=== PATIENT | female | born 1985 | race Caucasian/White ===

== ENCOUNTER → 2021-08-04 12:58 | Outpatient (BNVA) | payer BC, MEDICAID, SELFPAY | PROVIDERS: PCP Family Medicine; Visit Provider Physician Assistant Surgical | DX: Z13.89 Encounter for screening for other disorder (principal) ==

== ENCOUNTER → 2021-08-10 08:18 | Outpatient (BNVA) | payer BC, MEDICAID, SELFPAY | PROVIDERS: PCP Family Medicine; Visit Provider Physician Assistant Surgical | DX: Z13.89 Encounter for screening for other disorder (principal) ==

== ENCOUNTER 2021-08-25 09:23 | Outpatient (REF) | payer BC, MEDICAID, SELFPAY ==
[2021-08-25 09:52] LABS: MANUAL DIFF FLAG NO
[2021-08-25 10:17] LABS: Basophils Percent Auto 0.7 % (0-2); Eosinophils Absolute Auto 0.1 X10*3/uL (0.0-0.4); Eosinophils Percent Auto 1.8 % (0-4); Hematocrit 39.6 % (37.0-47.0); Imm Gran Abs Auto 0.01 X10*3/uL (0.00-0.03); Imm Gran Pct Auto 0.2 % (0.0-0.4); Lymphocytes Absolute Auto 1.5 X10*3/uL (1.2-4.9); Mean Corpuscular HGB Conc 32.8 g/dl (31.0-35.0); Mean Corpuscular Hemoglobin 27.8 pg (27.0-33.0); Mean Corpuscular Volume 84.8 fL (80.0-98.0); Mean Platelet Volume 12.3 fL (9.4-12.3); Monocytes Absolute Auto 0.4 X10*3/uL (0.1-1.2); Neutrophils Absolute Auto 3.7 x10*3/uL (2.0-8.3); Neutrophils Percent Auto 64.3 % (45-73); Platelet Count 198 X10*3/uL (160-400); Red Blood Count 4.67 X10*6/uL (4.20-5.50); Red Cell Distribution Width 13.8 % (11.0-16.0); White Blood Count 5.7 X10*3/uL (4.8-10.8)
[2021-08-25 10:48] LABS: Alanine Aminotransferase 19 U/L (0-31); Albumin Level 4.3 g/dL (3.5-5.0); Alkaline Phosphatase 94 U/L (39-117); Anion Gap 13 (12-20); Aspartate Amino Transferase 24 U/L (5-31); Bilirubin Total 0.4 mg/dL (0.0-1.0); Blood Urea Nitrogen 11 mg/dL (9-16); Calcium 9.6 mg/dL (8.4-10.2); Carbon Dioxide 25 mmol/L (22-29); Chloride 106 mmol/L (96-108); Cholesterol 146 mg/dL; Estimated Glomerular Filt Rate > 60; Glucose Random 81 mg/dL (60-115); HDL Cholesterol 31 mg/dL; Iron 46 mcg/dL (30-160); LDL Cholesterol Calculated 99 mg/dl; Percent Iron Saturation 14 % (15-50); Potassium 4.1 mmol/L (3.3-5.1); Sodium 140 mmol/L (135-145); Total Iron Binding Capacity 335 mcg/dL (228-428); Triglycerides 82 mg/dL; Unsaturated Iron Binding 289 ug/dL
[2021-08-25 10:50] LABS: Estimated Average Glucose 91 mg/dL; Hemoglobin A1c % 4.8 %
[2021-08-25 11:12] LABS: Ferritin 50 ng/mL (10-122); Insulin 6 uU/mL (2-29); TSH reflex Free T4 1.45 uIU/mL (0.32-4.0); Vitamin D 25-OH Total 30.4 ng/mL (>30)
[2021-08-25 11:20] LABS: Folate 13.3 ng/mL (> or = 4.0); Vitamin B12 983 pg/mL (200-900)
[2021-08-27 14:46] LABS: Calcium (PTHI) 9.6 mg/dL (8.6-10.2); PTHI 32 pg/mL (16-77)
[2021-08-28 11:50] LABS: H Pylori Breath Test Negative (Negative)
[2021-08-31 04:41] LABS: Vitamin B1 6 nmol/L (8-30)
[2021-08-31 08:28] LABS: Zinc 68 mcg/dL (60-130)
[2021-08-31 12:22] LABS: Vitamin A 28 mcg/dL (38-98)
== END 2021-08-25 09:24 | disposition home or self-care (01) ==
LOC: HO.LAB 09:23
PROVIDERS: PCP Family Medicine; Visit Provider Physician Assistant Surgical
DX: E66.01 Morbid (severe) obesity due to excess calories (principal)
CPT/HCPCS: 36415; 80053; 80061; 82306; 82607; 82728; 82746; 83013; 83036; 83525; 83540; 83970; 84425; 84443; 84590; 84630; 85025; 86140

== ENCOUNTER → 2021-08-27 09:26 | Outpatient (REF) | payer BC, MEDICAID, SELFPAY ==
--- NOTE | ~2021-08-27 | XR_ITS ---
EXAMINATION: XR CHEST CLINICAL INFORMATION: Obesity COMPARISON: None TECHNIQUE: 2 views of the chest were obtained. FINDINGS: Cardiac silhouette is normal in size. The lungs are well aerated. There is no lobar consolidation. No pleural effusion or pneumothorax. No acute osseous abnormality. XR/XR chest 2V IMPRESSION: No acute pulmonary pathology.
--- NOTE | 2021-08-27 09:35 | ECG_ITS ---
Test Reason : e66.01 Blood Pressure : / mmHG Vent. Rate : 074 BPM Atrial Rate : 074 BPM P-R Int : 144 ms QRS Dur : 094 ms QT Int : 406 ms P-R-T Axes : 045 016 036 degrees QTc Int : 450 ms Normal sinus rhythm Normal ECG No previous ECGs available Referred By: Dileep Garcia Electronically Signed By:JADA ALVARADO MD
== END ==
LOC: HO.CARD 09:26
PROVIDERS: PCP Family Medicine; Visit Provider Physician Assistant Surgical
DX: Z01.818 Encounter for other preprocedural examination (principal); E66.01 Morbid (severe) obesity due to excess calories
CPT/HCPCS: 71046; 93005

== ENCOUNTER → 2021-08-31 08:15 | Outpatient (BNVA) | payer BC, MEDICAID, SELFPAY | PROVIDERS: PCP Family Medicine; Visit Provider Surgery | DX: E66.01 Morbid (severe) obesity due to excess calories (principal) ==

== ENCOUNTER → 2021-09-01 08:08 | Outpatient (BNVA) | payer BC, MEDICAID, SELFPAY | PROVIDERS: PCP Family Medicine; Visit Provider Dietitian, Registered | DX: E66.01 Morbid (severe) obesity due to excess calories (principal); Z68.41 Body mass index [BMI] 40.0-44.9, adult | CPT/HCPCS: 97802 ==

== ENCOUNTER → 2021-09-07 14:00 | Outpatient (BNVA) | payer BC, MEDICAID, SELFPAY | PROVIDERS: PCP Family Medicine; Visit Provider Counselor Mental Health | DX: F31.32 Bipolar disorder, current episode depressed, moderate (principal); E66.01 Morbid (severe) obesity due to excess calories | CPT/HCPCS: 90791 ==

== ENCOUNTER → 2021-09-18 12:56 | Outpatient (BNVA) | payer BC, MEDICAID, SELFPAY | PROVIDERS: PCP Family Medicine; Visit Provider Surgery | DX: Z13.89 Encounter for screening for other disorder (principal) ==

== ENCOUNTER 2021-09-21 08:43 | Outpatient (REF) | payer BC, MEDICAID, SELFPAY ==
--- NOTE | ~2021-09-21 | US_ITS ---
EXAMINATION: US COMPLETE ABDOMEN WITH LIVER ELASTOGRAPHY CLINICAL INFORMATION: Obesity COMPARISON: None. TECHNIQUE: Real-time imaging of the abdominal viscera. Noninvasive ultrasound liver fibrosis assessment is performed using Vijaya ElastPQ point quantification shear wave elastography (2D-SWE) with a C5-2 MHz transducer. Multiple elastography samples are obtained. FINDINGS: PANCREAS: The visualized pancreatic head and body are normal in appearance. The remainder of the pancreas is obscured from visualization by the overlying bowel gas. ABDOMINAL AORTA: The proximal, middle, and distal aortic segments are normal in caliber. INFERIOR VENA CAVA: Visualized portions are normal. LIVER: Liver echotexture is increased. There is a 2.9 cm hyperechoic lesion in the liver near the hepatic venous confluence. No intrahepatic biliary duct dilatation. The right lobe measures 16 cm in length. The left lobe measures 10 cm in length. Portal flow is normal/hepatopedal Shear wave liver elastography median stiffness is 1.3 m/s (reference: normal median stiffness is 1.3 m/s or less). IQR/median stiffness to assess sampling precision is 0.1 (reference: good quality data set is IQR/median stiffness of 0.15 or less). GALLBLADDER: Normal. The gallbladder is physiologically distended without evidence of stones, sludge, polyps, wall thickening or pericholecystic fluid. COMMON BILE DUCT: Normal in caliber measuring 0.4 cm in diameter. RIGHT KIDNEY: Normal. No hydronephrosis. No renal calculi or focal parenchymal lesions. The kidney measures 10.8 cm in maximum dimension. LEFT KIDNEY: Normal. No hydronephrosis. No renal calculi or focal parenchymal lesions. The kidney measures 11.5 cm in maximum dimension. SPLEEN: Normal. The spleen measures 11.4 cm in maximum dimension. FREE FLUID: None. US/US abdomen comp w elastography IMPRESSION: 1. Impression: Echogenic liver probably representing fatty infiltration. 2.9 cm echogenic lesion in the liver near the hepatic venous confluence. This may represent a hemangioma. This could be further characterized with liver MRI. Limited visualization of the tail of the pancreas. 2. Liver elastography: Adequate liver sampling. Normal liver stiffness. REFERENCE: Society of Radiologists in Ultrasound Liver Stiffness Thresholds (2020): LIVER STIFFNESS THRESHOLDS: *Liver Stiffness equal or less than 1.3 m/s: High probability of being normal. *Liver Stiffness less than 1.7 m/s: In the absence of other known clinical signs, rules out compensated advanced chronic liver disease. *Liver Stiffness 1.7-2.1 m/s: Suggestive of compensated advanced chronic liver disease but need further test for confirmation. *Liver Stiffness over 2.1 m/s: Rules in compensated advanced chronic liver disease. *Liver Stiffness over 2.4 m/s: Suggestive of clinically significant portal hypertension. QUALITY OF DATA SET: *IQR/Median value equal or less than 0.15 implies a quality data set. *IQR/Median value over 0.15 implies a poor quality data set. SIGNIFICANT CHANGE FROM PRIOR EXAM: Significant change if liver stiffness measurement is 10% or greater from prior exam. OTHER CONSIDERATIONS: The stage of liver fibrosis may be overestimated in the setting of acute hepatitis, liver inflammation, elevated liver function tests, hepatic vascular congestion, obstructive cholestasis, non-fasting state, and infiltrative diseases such as amyloidosis and lymphoma. In some patients with NAFLD, the liver stiffness thresholds for compensated advanced chronic liver disease may be lower. In causes other than viral hepatitis and NAFLD, liver stiffness thresholds are not well established.
--- NOTE | ~2021-09-21 | FL_ITS ---
EXAMINATION: XR FLUOROSCOPY UPPER GI WITH AIR CLINICAL INFORMATION: Morbid/severe obesity due to excess calories. COMPARISON: None TECHNIQUE: Routine upper GI air-contrast study was performed in upright and lying position. FINDINGS: Following oral administration of thick barium and effervescent granules, there is normal propagation of bolus from the oral cavity through the pharynx, esophagus into stomach without any evidence of obstruction, narrowing or stricture. On placing patient supine, the course, caliber and peristalsis of the stomach, duodenal bulb and the sweep is normal. The mucosal pattern of the stomach, duodenal bulb and sweep is normal. There is mild gastroesophageal reflux without hiatal hernia. FLUOROSCOPY TIME: 1.5 minutes. DOSE AREA PRODUCT: 40.830 uGy-m2 (microgray-meter squared). FL/FL upper GI w air IMPRESSION: Mild gastroesophageal reflux without hiatal hernia. The rest of the upper GI exam is unremarkable.
== END 2021-09-21 08:44 | disposition home or self-care (01) ==
LOC: HO.US 08:43
PROVIDERS: PCP Family Medicine; Visit Provider Surgery
DX: E66.01 Morbid (severe) obesity due to excess calories (principal)
CPT/HCPCS: 74246; 76705; 76981

== ENCOUNTER 2021-09-24 07:50 | Inpatient (IN) | payer BC, MEDICAID, SELFPAY ==
[2021-09-19 09:17] LABS: MANUAL DIFF FLAG NO
[2021-09-19 09:35] LABS: Basophils Percent Auto 0.3 % (0-2); Eosinophils Absolute Auto 0.2 X10*3/uL (0.0-0.4); Eosinophils Percent Auto 2.5 % (0-4); Hemoglobin 12.5 g/dl (12.0-16.0); Imm Gran Abs Auto 0.01 X10*3/uL (0.00-0.03); Imm Gran Pct Auto 0.2 % (0.0-0.4); Lymphocytes Absolute Auto 1.3 X10*3/uL (1.2-4.9); Lymphocytes Percent Auto 20.8 % (20-40); Mean Corpuscular HGB Conc 32.1 g/dl (31.0-35.0); Mean Corpuscular Hemoglobin 28.2 pg (27.0-33.0); Mean Corpuscular Volume 87.8 fL (80.0-98.0); Mean Platelet Volume 12.4 fL (9.4-12.3); Monocytes Absolute Auto 0.5 X10*3/uL (0.1-1.2); Monocytes Percent Auto 7.6 % (2-11); Neutrophils Absolute Auto 4.2 x10*3/uL (2.0-8.3); Neutrophils Percent Auto 68.6 % (45-73); Platelet Count 166 X10*3/uL (160-400); Red Blood Count 4.44 X10*6/uL (4.20-5.50); Red Cell Distribution Width 14.8 % (11.0-16.0); White Blood Count 6.1 X10*3/uL (4.8-10.8)
[2021-09-19 09:41] LABS: INTERNATIONAL NORM RATIO 1.1 (0.9-1.1); Prothrombin Time 12.1 SEC (9.9-13.0)
[2021-09-19 09:43] LABS: Partial Thromboplastin Time 36.5 SEC (24.1-38.0)
[2021-09-19 09:52] LABS: Estimated Average Glucose 88 mg/dL; Hemoglobin A1c % 4.7 %
[2021-09-19 10:28] LABS: Alanine Aminotransferase 48 U/L (0-31); Albumin Level 4.2 g/dL (3.5-5.0); Alkaline Phosphatase 122 U/L (39-117); Anion Gap 16 (12-20); Aspartate Amino Transferase 25 U/L (5-31); Bilirubin Total 0.8 mg/dL (0.0-1.0); Blood Urea Nitrogen 6 mg/dL (9-16); C Reactive Protein 0.59 mg/dL (< or = 0.50); Calcium 9.5 mg/dL (8.4-10.2); Carbon Dioxide 19 mmol/L (22-29); Chloride 110 mmol/L (96-108); Cholesterol 152 mg/dL; Estimated Glomerular Filt Rate > 60; Glucose Random 83 mg/dL (60-115); HDL Cholesterol 35 mg/dL; LDL Cholesterol Calculated 103 mg/dl; Potassium 4.1 mmol/L (3.3-5.1); Sodium 141 mmol/L (135-145); Total Protein 6.9 g/dL (6.5-8.0); Triglycerides 72 mg/dL
[2021-09-19 10:53] LABS: TSH reflex Free T4 2.31 uIU/mL (0.32-4.0)
[2021-09-19 11:13] LABS: Insulin 9 uU/mL (2-29)
--- NOTE | 2021-09-19 13:52 | MHC.SHP ---
Pre-Procedural Eval Section A Date of Service: 09/19/21 The patient is an INPATIENT: Yes The History & Physical has been completed within 30 days and I have reviewed it.: Yes Section B Chief Complaint: obesity Relevant Family History (Specify if Yes): No Relevant Social History: None Present Medications: None Medical History: No relevant PMH History of Previous Operations: No relevant previous surgery Allergies: Allergies Allergy/AdvReac Type Severity Reaction Status Date / Time latex [LATEX] Allergy Unknown UNKNOWN Verified 09/18/21 16:54 sulfamethoxazole Allergy Unknown UNKNOWN Verified 09/18/21 16:54 [From BACTRIM] trazodone [TRAZODONE] Allergy Unknown UNKNOWN Verified 09/18/21 16:54 trimethoprim [From BACTRIM] Allergy Unknown UNKNOWN Verified 09/18/21 16:54 CHOCOLATE Allergy Unknown UNKNOWN Uncoded 09/18/21 16:54 From FLONASE Allergy Unknown UNKNOWN Uncoded 09/18/21 16:54 Review of Systems Sugical H&P ROS: Negative: Constitution, Cardiovascular, Respiratory, Neurological, Psychiatric, Hem-Onc, Allergic/Immunologic, Gastrointestinal, Genitourinary, Musculoskeletal, Integumentary, Endocrine and Eyes/Ears/Nose/Throat Exam Surgical H&P Exam: Normal: HEENT, Normal: Heart, Normal: Lungs, Normal: Extremities, Normal: Abdomen, Normal: Skin and Normal: Neurological Plan Diagnosis/Plan: Unchanged I have reviewed the history and physical and performed a pertinent physical examination on my patient. No changes have occurred unless specified.
[2021-09-21 10:45] VITALS: BMI 42.1
--- NOTE | 2021-09-23 08:45 | P.CONAN_ITS ---
Documented by User: Sandrine Bonilla NP 09/23/21 08:46 HPI - Anesthesia Eval Consult details Narrative: 36yo F for Gastrectomy Sleeve,EGD,Possible diaphragmatic hernia,possible ventral hernia,possible open PMFSH Active Problems Active Problems: All Active Problems (Updated 09/21/21 @ 10:42 by Sarah Amezcua RN) Morbid obesity (Acute) Depression (Acute) Asthma (Acute) Bipolar disorder (Acute) Vitamin B1 deficiency (Acute) Bipolar 1 disorder, depressed, moderate (Acute) Migraines (Acute) Past Medical History Medical History (Updated 09/24/21 @ 10:26 by Jose Kaufman MD) Asthma Bipolar depression Depression GERD (gastroesophageal reflux disease) Hemangioma Insomnia Migraines Obesity Steatosis, liver Family History Family History Mother Mental health disorder Arthritis Thyroid condition Father Arthritis Autism Hypertension Brother No problems noted. Sister No problems noted. Son No problems noted. Daughter Autism ADHD Surgical History Surgical History (Updated 09/24/21 @ 14:36 by GABRIEL Bullard) H/O laparoscopy History of myringotomy Hx of dilation and curettage Social History Social History Are you a primary rn progressive care unit to a significant other at home: No Do you presently have visiting nurse or other home services: No Alcohol intake: current Alcohol intake frequency: holidays/special occasions on ly Patient Tobacco Use Status: Never used Tobacco Use of substances other than those prescribed or required for medical reasons: No Have you been hit, kicked, punched, or otherwise hurt by someone within the past year? If so, by whom?: No Are you DNR?: No Advance Directives: No Advance Directives Information Provided: Yes (Info given to patient) Advance Directives on File: No Recently lost weight without trying: No How much weight loss: 24-33 pounds Eating poorly because of decreased appetite: No Nutrition screen score: 3 Nutrition Risks: No Nutritional Risk Patient : No FDLMP: due 09/24/21 Meds Allergies Allergy/AdvReac Type Severity Reaction Status Date / Time latex [LATEX] Allergy Unknown Swelling Verified 09/21/21 10:44 sulfamethoxazole Allergy Unknown Rash Verified 09/21/21 10:44 [From BACTRIM] trazodone [TRAZODONE] Allergy Unknown Insomnia Verified 09/21/21 10:44 trimethoprim [From BACTRIM] Allergy Unknown Rash Verified 09/21/21 10:44 CHOCOLATE Allergy Unknown Migraine Uncoded 09/21/21 10:44 From FLONASE Allergy Unknown Migraine Uncoded 09/21/21 10:44 Home Medications Medication Instructions Recorded Confirmed Last Taken Type erenumab-aooe 140 mg/mL mg subcut 08/04/21 09/18/21 08/17/21 History subcutaneous auto-injector (Aimovig Autoinjector) lorazepam 1 mg tablet 1 mg PO BEDTIME 08/04/21 09/24/21 Unknown History lurasidone 40 mg tablet (Latuda) 40 mg PO DAILY 08/04/21 09/18/21 Unknown History melatonin 10 mg tablet 10 mg PO BEDTIME PRN Sleep 08/04/21 09/18/21 Unknown History Hair, skin ,nail MVI 2 units PO DAILY 08/10/21 09/18/21 09/19/21 History gabapentin 600 mg tablet 900 mg PO QPM 08/10/21 09/21/21 09/19/21 History lithium carbonate 450 mg 900 mg PO BEDTIME 08/10/21 09/18/21 Unknown History tablet,extended release hydroxyzine HCl 25 mg tablet 25 mg PO BEDTIME 08/31/21 09/18/21 Unknown History albuterol sulfate 90 mcg/actuation 2 puff inhalation Q4-6H PRN 09/21/21 09/21/21 Unknown History aerosol inhaler (ProAir HFA) Wheezing Exam Exam Date and Time: September 23, 2021 0845 Height,Weight and Vital Signs: Height 5 ft 5.5 in Weight 116.573 kg Pertinent Lab Results Pertinent Lab Results: Laboratory Tests 09/19/21 09/19/21 09/19/21 09:00 09:17 09:17 WBC 6.1 RBC 4.44 Hgb 12.5 Hct 39.0 MCV 87.8 MCH 28.2 MCHC 32.1 RDW 14.8 Plt Count 166 MPV 12.4 H Immature Gran % (Auto) 0.2 Neut % (Auto) 68.6 Lymph % (Auto) 20.8 [place] % (Auto) 7.6 Eos % (Auto) 2.5 Baso % (Auto) 0.3 Lymph # (Auto) 1.3 [place] # (Auto) 0.5 Eos # (Auto) 0.2 Baso # (Auto) 0.0 Abs Immat Gran (auto) 0.01 Absolute Neuts (auto) 4.2 Absolute Nucleated RBC 0.000 Nucleated RBC % (auto) 0.0 PT 12.1 INR 1.1 APTT 36.5 Sodium Potassium Chloride Carbon Dioxide Anion Gap BUN Creatinine Estim Creat Clear Calc Estimated GFR Random Glucose Estimat Average Glucose Hemoglobin A1c % Insulin Level Calcium Total Bilirubin AST ALT Alkaline Phosphatase C-Reactive Protein Total Protein Albumin Triglycerides Cholesterol LDL Cholesterol, Calc HDL Cholesterol TSH Blood Type O Positive Antibody Screen NEGATIVE 09/19/21 09/19/21 09:17 09:17 WBC RBC Hgb Hct MCV MCH MCHC RDW Plt Count MPV Immature Gran % (Auto) Neut % (Auto) Lymph % (Auto) [place] % (Auto) Eos % (Auto) Baso % (Auto) Lymph # (Auto) [place] # (Auto) Eos # (Auto) Baso # (Auto) Abs Immat Gran (auto) Absolute Neuts (auto) Absolute Nucleated RBC Nucleated RBC % (auto) PT INR APTT Sodium 141 Potassium 4.1 Chloride 110 H Carbon Dioxide 19 L Anion Gap 16 BUN 6 L Creatinine 0.80 Estim Creat Clear Calc TNP Estimated GFR > 60 Random Glucose 83 Estimat Average Glucose 88 Hemoglobin A1c % 4.7 Insulin Level 9 Calcium 9.5 Total Bilirubin 0.8 AST 25 ALT 48 H Alkaline Phosphatase 122 H D C-Reactive Protein 0.59 H Total Protein 6.9 Albumin 4.2 Triglycerides 72 Cholesterol 152 LDL Cholesterol, Calc 103 HDL Cholesterol 35 TSH 2.31 Blood Type Antibody Screen Narrative Narrative: EKG 08/2021 Vent. Rate : 074 BPM ? ? Atrial Rate : 074 BPM ?? P-R Int : 144 ms? QRS Dur : 094 ms ? ? QT Int : 406 ms ? ? ? P-R-T Axes : 045 016 036 degrees ?? QTc Int : 450 ms ? Normal sinus rhythm Normal ECG No previous ECGs available Assessment and Plan Assessment Anesthesia Assessment: Chart Reviewed Documented by User: Sarthak Diaz MD 09/24/21 16:33 PMFSH Past Medical History Medical History (Updated 09/24/21 @ 10:26 by Jose Kaufman MD) Asthma Bipolar depression Depression GERD (gastroesophageal reflux disease) Hemangioma Insomnia Migraines Obesity Steatosis, liver Functional capacity: independent ambulation Family History Family History Mother Mental health disorder Arthritis Thyroid condition Father Arthritis Autism Hypertension Brother No problems noted. Sister No problems noted. Son No problems noted. Daughter Autism ADHD Family history of problems with anesthesia: Yes (possible PONV and delayed emergence in grandfathjer but patient unsure ) Surgical History Surgical History (Updated 09/24/21 @ 14:36 by GABRIEL Bullard) H/O laparoscopy History of myringotomy Hx of dilation and curettage History of Problems with Anesthesia: No Social History Social History Are you a primary rn progressive care unit to a significant other at home: No Do you presently have visiting nurse or other home services: No Alcohol intake: current Alcohol intake frequency: holidays/special occasions only Patient Tobacco Use Status: Never used Tobacco Use of substances other than those prescribed or required for medical reasons: No Have you been hit, kicked, punched, or otherwise hurt by someone within the past year? If so, by whom?: No Are you DNR?: No Advance Directives: No Advance Directives Information Provided: Yes (Info given to patient) Advance Directives on File: No Recently lost weight without trying: No How much weight loss: 24-33 pounds Eating poorly because of decreased appetite: No Nutrition screen score: 3 Nutrition Risks: No Nutritional Risk Patient : No FDLMP: due 09/24/21 Meds Allergies Allergy/AdvReac Type Severity Reaction Status Date / Time latex [LATEX] Allergy Unknown Swelling Verified 09/21/21 10:44 sulfamethoxazole Allergy Unknown Rash Verified 09/21/21 10:44 [From BACTRIM] trazodone [TRAZODONE] Allergy Unknown Insomnia Verified 09/21/21 10:44 trimethoprim [From BACTRIM] Allergy Unknown Rash Verified 09/21/21 10:44 CHOCOLATE Allergy Unknown Migraine Uncoded 09/21/21 10:44 From FLONASE Allergy Unknown Migraine Uncoded 09/21/21 10:44 Home Medications Medication Instructions Recorded Confirmed Last Taken Type erenumab-aooe 140 mg/mL mg subcut 08/04/21 09/18/21 08/17/21 History subcutaneous auto-injector (Aimovig Autoinjector) lorazepam 1 mg tablet 1 mg PO BEDTIME 08/04/21 09/24/21 Unknown History lurasidone 40 mg tablet (Latuda) 40 mg PO DAILY 08/04/21 09/18/21 Unknown History melatonin 10 mg tablet 10 mg PO BEDTIME PRN Sleep 08/04/21 09/18/21 Unknown History Hair, skin ,nail MVI 2 units PO DAILY 08/10/21 09/18/21 09/19/21 History gabapentin 600 mg tablet 900 mg PO QPM 08/10/21 09/21/21 09/19/21 History lithium carbonate 450 mg 900 mg PO BEDTIME 08/10/21 09/18/21 Unknown History tablet,extended release hydroxyzine HCl 25 mg tablet 25 mg PO BEDTIME 08/31/21 09/18/21 Unknown History albuterol sulfate 90 mcg/actuation 2 puff inhalation Q4-6H PRN 09/21/21 09/21/21 Unknown History aerosol inhaler (ProAir HFA) Wheezing Exam Airway Mallampati Class: III TM Dist: >3cm Neck ROM: Full Loose/Missing/Broken Teeth: Yes (Chipped teeth , crown ) Heart: S1,S2 Lungs: b/l breath sounds Assessment and Plan Assessment Anesthesia Assessment: Anesthesia Plan Discussed Final Anesthetic Review Family History of Problems with Anesthesia: Yes (possible PONV and delayed emergence in grandfathjer but patient unsure ) History of Problems with Anesthesia: No NPO: Yes ASA Class: III Final Preanesthetic Review: Meds/Allgs Chart Reviewed, Consent Obtained/Reviewed and Anes Risks/Benef Reviewed Patient Risk: Intermediate Procedure Risk: Intermediate Anesthetic Plan Anesthetic Plan: GA Disposition: Standard PACU
[2021-09-23 13:23] LABS: COVID-19 Test Negative (Negative); IDNOW Serial# 16C4AD1C
[2021-09-24] VITALS (14 sets, daily range): BP systolic 116–157; BP diastolic 63–92; PULSE 66–93; RESP 14–20; TEMP 36.2–36.7; O2SAT 96–99
[2021-09-24 08:22] LABS: UPreg QC Valid YES; Urine Pregnancy NEGATIVE (NEGATIVE)
[2021-09-24] MEDS: Lactated Ringers 1,000 ML 999 ML IV (08:37)
--- NOTE | 2021-09-24 10:24 | PM.PNGS ---
Subjective Subjective Date of Service: 09/25/21 Interval history: Patient has mild incisional pain, but was able to ambulate and use the incentive spirometer. She is tolerating phase 1 bariatric diet Physical Exam Vital Signs: Vital Signs: Last Vital Signs Temp 97.3 F 09/24/21 08:19 Pulse 88 09/24/21 08:19 Resp 17 09/24/21 08:19 BP 150/85 H 09/24/21 08:19 Pulse Ox 98 09/24/21 08:19 O2 Del Method 09/24/21 08:19 BMI result Body Mass Index 42.1 GI: Inspection: Yes normal to inspection, Yes incision (clean, dry and intact) and Yes obesity Extrem: Right lower extremity: normal to inspection (no calf tenderness) Left lower extremity: normal to inspection (no calf tenderness) Objective Data Active Medications Albuterol Sulfate (Albuterol Sulfate (0.083%) 2.5 Mg/3 Ml Vial.Neb) 2.5 mg INHALE ONCE PRN PRN Reason: Shortness of Breath/Wheezing Lactated Ringer's (Lr) 1,000 mls @ 100 mls/hr IVCONT .Q10H JAZMIN Labs CBC & Chem 7: 09/25/21 05:29 09/25/21 05:29 Labs: Laboratory Results - last 24 hr 09/23/21 09/24/21 13:00 08:00 Urine Test NEGATIVE COVID-19 (SHAD) Negative COVID-19 Clin Com See Note Procedures Date of Service Date of Service: 09/25/21 Progress Note: A&P Assessment and plan (1) Morbid obesity: Status: Acute Assessment and Plan: s/p laparoscopic sleeve gastrectomy, lysis of adhesions repair of diaphragmatic hernia, and gastropexy Doing well Check am labs. If OK, will discharge home? (2) Depression: Status: Acute (3) Asthma: Status: Acute (4) Bipolar disorder: Status: Acute (5) Migraines: Status: Acute (6) GERD (gastroesophageal reflux disease): Status: Acute (7) Steatosis, liver: Status: Acute (8) Hemangioma: Status: Acute (9) Insomnia: Status: Acute (10) History of repair of hiatal hernia: Status: Acute Time Spent With Patient Time: Total time spent is greater than 50% in coordination of care (as documented) at patient's floor/unit and/or counseling patient: Quality Stroke Does the patient have a stroke diagnosis?: No VTE Prior VTE?: No VTE Risk Level:: Surgical - moderate VTE Device Contraindication: N/A - Device Ordered VTE Drug Contraindication: Treatment Not Indicated
--- NOTE | 2021-09-24 10:27 | PM.OP ---
Brief Operative Note Date of Service: 09/24/21 Pre-op diagnosis: Morbid obesity with comorbidities (see below) Post-op diagnosis: same Procedure: INITIAL PATIENT BMI ON PRESENTATION AT OUR OFFICE: 47 kg/m2 LAST BMI BEFORE SURGERY: 42.6 kg/m2 COMORBIDITIES: asthma, insomnia, anxiety, bipolar disorder, GERD, liver steatosis, hemangioma of liver ?The patient presented to the Weight Management Program with significant obesity that was negatively impacting the patient's comorbidities as listed above.? The program is a phased program with a special focus on preoperative medical weight management to promote substantial weight loss and prepare the patients for the second phase of the program: bariatric surgery. The patient participated in an intensive weekly lifestyle ?intervention and exercise program during which the patient ?has lost between the initial office visit and the last preoperative visit 26.4 lbs, or 9.34% of initial actual body weight. It was deemed appropriate for the patient to now have bariatric surgery. In light of the current Covid-19 pandemic and the well documented strong association of obesity and increased risk of worse outcomes if infected with Covid-19 (REFERENCES:https://pubmed.ncbi.nlm.nih.gov/79901166/,?https://pubmed.ncbi.nlm.nih.gov/78885877/), any delay in undergoing bariatric surgery may lead to the patient's worsening health condition and increased?risk of more severe Covid-19 disease if infected. In addition a recent?study from [facility] published in [facility] on 04/13/2021 ([email or web address]) found that, among patients with obesity, substantial weight loss achieved with surgery was associated with improved outcomes of COVID-19 infection. The findings suggest that obesity can be a modifiable risk factor for the severity of COVID-19 infection. In addition, the patient met the BMI-criteria for bariatric surgery based on the BMI on initial presentation. The patient should not be penalized for achieving such weight loss because ?it is not sustainable long-term without surgical intervention and it was achieved in preparation for bariatric surgery ?under my direction and based on my published research ([email or web address]).[email or web address] and?https://www.soard.org/article/[email or web address])13630-X/pdf) ?that a 10% preoperative weight loss improves long-term weight loss after surgery and reduces perioperative complications.? Insurance carriers such as [facility] have endorsed my recommendations ?and have included in their policies criteria to include a 10% preoperative weight loss requirement. PROCEDURE: Esophago-gastroscopy, laparoscopic repair of incarcerated diaphragmatic hernia, laparoscopic sleeve gastrectomy and laparoscopic gastropexy INDICATIONS: This is a 36 year-old female who was electively scheduled for laparoscopic, possibly open sleeve gastrectomy. The risks and complications of the procedure were discussed with the patient in advance, particularly the possibility of ; pulmonary embolism; staple line leak; bleeding; GERD; cardiac, pulmonary, or renal complications; as well as long-term problems such as insufficient weight loss, vitamin deficiency, strictures, or ulcers. The patient understood all the risks, and was in agreement to proceed with surgery. DESCRIPTION OF PROCEDURE: After informed consent was obtained from the patient, the patient was given preoperative antibiotics, and was transferred to the operating room. After successful induction of general anesthesia, pneumatic compression devices were placed on both lower extremities. An upper endoscopy was performed next. The oropharynx and esophagus appeared to be within normal limits. There was a diaphragmatic hernia present of moderate size which was not reported at the preoperative upper GI. The stomach was entered. Then after all fluid and air were suctioned and the stomach was fully decompressed, the scope was withdrawn and secured in the mid esophagus. The patient was then prepped and draped in the usual sterile manner, and abdominal access was established at the right upper quadrant with the Aureliano technique. A 12 mm blunt port was inserted, and the abdomen was insufflated with CO2 to a pressure of 15 mmHg. Under direct visualization, additional ports were placed, specifically two 5 mm Versi-step ports to the left upper quadrant, and a 5 mm Versi-Step port to the right upper quadrant. 1% lidocaine plain was used to infiltrate all port sites as well as all fascia defects. Following that, the patient was placed in a steep reverse Trendelenburg position. An additional 5 mm port was placed to the right flank for the Mediflex retractor that was used to retract the left lobe of the liver. The gastro-esophageal fat pad was opened with the ultrasonic device (Thunderbeat, Olympus) and the anterior esophagus and hiatus were exposed. The angle of His was opened with the ultrasonic device the fundus of the stomach from any diaphragmatic and splenic attachments. I then opened the gastrocolic ligament between the transverse colon and the greater curvature of the stomach with the ultrasonic device to enter the lesser sac and facilitate the ligation of the short gastric vessels. I started at a mid-point along the greater curvature and using the Thunderbeat, all short gastric vessels were divided all the way to the angle of His until the left rose was completely dissected at its entirety. I then divided the gastro-colic ligament distally to a distance of about 3-4 cm proximal to the pylorus. There was an obvious significant-sized hiatal hernia. I continued dissecting along the hiatus toward the left rose and the angle of His. I fully mobilized the fat pad that was incarcerated in the hernia. I then continued by dissecting even further into the posterior retro-esophageal space all the way to the angle of His. I continued to mobilize the esophagus into the mediastinum circumferentially. Both vagal nerves were seen and preserved. At that point, I was able to have at least 3 to 5 cm of esophagus into the abdomen.? After I completely mobilized the esophagus from both the left and right rose and I had a good mobilization of the esophagus circumferentially, I closed the hernia defect with two interrupted #0 Surgidac sutures using the Endo Stitch device, one of which was placed posterior and one of which anterior to the esophagus. ? The stomach was then divided transversely with one Endo ABE-45 purple and four ABE-60 articulating orange loads using the AEON stapler and loads. Every effort was made that the gastric sleeve had a tubular shape and an even caliber throughout. Once the sleeve resection was completed, the staple line of the gastric sleeve was reinforced with Hemoclips. The resected stomach was retrieved without difficulty from the Aureliano port. A gastropexy was then performed in order to prevent postoperative GERD and partial gastric volvulus. Several interrupted 2.0 Surgidac sutures were placed between the sleeve's staple line and the previously divided greater omentum and gastro-colic ligament using the Endo-Stitch device. ?An upper endoscopy was performed. There was no narrowing at the GE junction. The scope was easily advanced all the way to the pylorus which was clearly visualized. There was no narrowing anywhere and the sleeve's caliber was even throughout. The sleeve's staple line was inspected and there was no evidence of ischemia, bleeding or dehiscence. At that point the gastroscope was withdrawn from the patient?s mouth while we were decompressing the bowel and the stomach from any remaining air. I looked into the lesser sac to see how the sleeve was situating and it was situating well. There was no bleeding from the staple line, spleen, or short gastric vessels. The Mediflex retractor was removed, and the undersurface of the liver was inspected and there was no bleeding. The patient was placed in supine position. I closed the fascial defect of the 12 mm port site with a figure of eight #1 Polysorb suture. Then 50 cc 0.25 % Marcaine plain with 10 mg of Dexamethasone were used to infiltrate the fascial closure as well as all skin incisions. A total of 7ml of Zynrelef was placed in the Aureliano wound. At this point, the abdomen was deflated, all ports were removed under direct vision, and no bleeding was noted from any of the port sites. The skin incisions were irrigated with saline and were closed with 4-0 absorbable monofilament sutures. Steri-Strips and OpSites were used to cover all incisions. The patient was extubated and was transferred in stable condition to the recovery room for further care. I was present and performed all obrien parts of the procedure. Radha was the construction management assistant. There were no residents to assist with this case. Rachid Kaufman MD, PhD, FACS Surgeon: Jose Kaufman MD Anesthesia: GETA, local and other (TAP block) Was an Therapeutic Recreation Leader used for this Procedure?: No Therapeutic Recreation Leader: Dileep Garcia Estimated blood loss (mL): 10 IV fluids (mL): 3,000 Urine output (mL): 0 (No Perkins to record) Pathology: other (Stomach) Condition: stable Disposition: PACU
--- NOTE | 2021-09-24 14:40 | P.DS_ITS ---
DS: Providers Provider Date of Service: 09/25/21 Date of admission: 09/24/21 07:50 Primary care physician: Marjorie Bower MD DS: Diagnosis Discharge Diagnosis (1) Morbid obesity: Status: Acute (2) Depression: Status: Acute (3) Asthma: Status: Acute (4) Bipolar disorder: Status: Acute (5) Migraines: Status: Acute (6) GERD (gastroesophageal reflux disease): Status: Acute (7) Steatosis, liver: Status: Acute (8) Hemangioma: Status: Acute (9) Insomnia: Status: Acute DS: Summary Hospital Course Hospital Course: ADMITTING DIAGNOSIS: morbid obesity, asthma, depression, bipolar, migraine ? DISCHARGE DIAGNOSIS: same, s/p laparoscopic sleeve gastrectomy and repair diaphragmatic hernia ? PAST SURGICAL HISTORY: exploratory laparoscopy ? PROCEDURE: upper endoscopy, laparoscopic sleeve gastrectomy and repair of diaphragmatic hernia hernia ? DISCHARGE SUMMARY: ? History of Present Illness: ? The patient is a?36 year-old woman with a BMI of?47 kg/m2 and associated co- morbidities as described above. The patient had extensive work-up,lost?26.4 lbs preoperatively and was electively scheduled for laparoscopic, possible open sleeve gastrectomy and gastropexy. Risks and complications of the surgery were discussed with the patient in advance, particularly the possibility of , pulmonary embolism, anastomotic leak, bleeding, bowel injury, GERD, cardiac, renal or pulmonary complications. The patient understood all the risks and was in agreement with the surgical plan. ? Hospital Course: ? The patient underwent an uneventful laparoscopic sleeve gastrectomy with gastropexy and repair of diaphragmatic hernia on the day of admission. Postoperatively, the patient was transferred to the surgical floor. The patient received IV Acetaminophen and IV dilaudid for pain control. Patient was started on bariatric phase 1 diet POD #0. On postoperative day one, the patient was feeling well without nausea, vomiting, fevers, or tachycardia. The patient had some mild incisional pain and the abdomen was soft. ? On the morning of postoperative day one, the patient was continued on 1 ounce of water or ice every half hour. During the day, the patient did fairly well, having some incisional pain, but able to ambulate adequately and to tolerate liquids well. ? Since the patient is doing well, we decided that the patient was ready to be discharged. The patient was given instructions to follow-up with me next week and to call my office for any fever over 101, persistent abdominal pain, nausea, vomiting, GERD, symptoms of DVT such as calf tenderness, or leg swelling, or pulmonary embolism such as chest pain or shortness of breath. The patient was also instructed to drink 40-60 ounces of liquids per day using the 1-ounce cups. The patient had been given prescriptions for Tylenol for pain, Zofran prn for nausea, and pantoprazole and carafate previously. The patient was encouraged to ambulate and use the incentive spirometer. The patient was allowed to shower, but no baths, and encouraged to stay active at home. All of these instructions were given to the patient personally. All questions were answered and the patient understood all instructions, the instructions were also given to the patient in print. Time Spent with Patient Time attestation: Total time spent providing and/or coordinating discharge services: Discharge coordination time: Less than 30 minutes Quality: Safe Use of Opioids Does Pt have an Active Cancer Diagnosis on the Problem List?: No Quality: Stroke Does the patient have a stroke diagnosis?: No Physical Exam Vital Signs: Vital Signs: Last Vital Signs Temp 97.3 F 09/24/21 08:19 Pulse 88 09/24/21 08:19 Resp 17 09/24/21 08:19 BP 150/85 H 09/24/21 08:19 Pulse Ox 98 09/24/21 08:19 O2 Del Method 09/24/21 08:19 BMI result Body Mass Index 42.1 DS: Data Data Completed and Pending Pending studies at discharge: Pending at discharge 09/24/21 13:09 Surgical [PTH] Routine Labs on day of discharge: Laboratory Results - last 24 hr 09/24/21 08:00 Urine Test NEGATIVE Discharge Plan Discharge Patient Disposition: Home, Self-Care Discharge Diagnosis: s/p laparoscopic sleeve gastrectomy and repair of hiatal hernia Referrals: Marjorie Bower MD [Primary Care Provider] - 1 Week Discharge Medications: Continued albuterol sulfate [ProAir HFA] 90 mcg/actuation Hfa Aerosol Inhaler 2 puff INHALATION Q4-6H PRN (Reason: Wheezing) lorazepam 1 mg tablet 1 mg PO BEDTIME melatonin 10 mg tablet 10 mg PO BEDTIME PRN (Reason: Sleep) Aimovig Autoinjector 140 mg/mL auto-injector subcut Latuda 40 mg tablet 40 mg PO DAILY lithium carbonate 450 mg tablet extended release 900 mg PO BEDTIME hydroxyzine HCl 25 mg tablet 25 mg PO BEDTIME pantoprazole 40 mg tablet,delayed release (DR/EC) 40 mg PO DAILY Qty: 30 2RF sucralfate 100 mg/mL suspension 10 ml PO BID Qty: 400 2RF ondansetron HCl 4 mg tablet 4 mg PO Q12H Qty: 20 0RF Held gabapentin 600 mg tablet 900 mg PO QPM Hold Instructions: until discssed with Dr Kaufman Discontinued vitamin A 10,000 unit capsule 10,000 unit PO DAILY Qty: 30 2RF Hair, skin ,nail MVI 2 units PO DAILY thiamine HCl (vitamin B1) 100 mg tablet 100 mg PO DAILY Qty: 30 2RF Diet: other Activity on Discharge: No heavy lifting Stand Alone Forms: Patient Portal Discharge page Care Plan Goals: weight loss Health Concerns: morbid obesity Plan of Treatment: No tub baths, sex or returning to work until discussed at first post op appointment. No exercise, alcohol, tobacco or illegal drug use. Continue to use incentive spirometer hourly while awake. Walk in home for 5- 10 minutes every 2 hours during the first week. Follow all instructions in the bariatric handbook and call with any questions.Discharge Instructions 1. Please call your doctor or come back to the emergency room should any new symptoms arise. 2. You will receive a courtesy call from [facility] 24-48 hours after discharge. 3. Activity: abstain from alcohol, practice limited stair climbing, no bending, no driving, no exercise, no illicit substances, no lifting, no sex, no tub bath, no work. 4. Diet: continue as discussed with Dr. Kaufman. 5. Dressing Change/Wound Care: Your incision is covered by clear bandages and guaze underneath. If the area is tender, you may apply an ice pack for short intervals (no more than 20 minutes on, followed by at least 20 minutes off). Do not apply heat. Do not use creams, lotions, or topical antibiotics unless instructed to do so by your surgeon. These can cause infection or allergic reaction. 6. Call your doctor if: - Your temperature exceeds 101.5 F - You experience excessive pain or swelling - You have an unexpected reaction to medication - You have excessive bleeding - You experience continued vomiting/nausea - Your incision begins to separate - Your incision shows signs of infection such as increased redness, swelling, excessive pain, heat, or drainage (light blood or clear fluid is normal) 7. General instructions: No lifting greater than 5 lbs for the next 4 weeks[address] driving within 24 hours of taking narcotic pain medications. If you do not move your bowels in the next 2 days, please take milk of magnesia over the counter. Please follow the post op diet and do not advance your diet until you are seen in the office in about 2 weeks. Please walk around your home every hour or two to prevent blood clots from forming in your legs. You do not need to wake from sleeping to walk. Please sleep in a bed or couch to prevent kinking at the hips and knees. Please take your incentive spirometer (your lung revenue cycle consultant) home with you and use it for the next few days to prevent pneumonias. You may shower, no hot tubs, baths or swimming pools. Please call the office with any questions or concerns such as increasing abdominal pain, fever, chills, shortness of breath, chest pain, leg pain or swelling, or redness or drainage from your incisions. Please stay on stage 3 diet which includes sugar free clear liquids such as ice pops and jello and broth and crystal light. Avoid all carbonation. Please drink 3 protein shakes with at least 25-30 grams of protein daily or 3 of the Celebrate 4:1 shakes which can be purchased in our office. The Celebrate shakes have all of the bariatric vitamins you need if you consume these shakes. If you are drinking other protein shakes, you will need to purchase the Celebrate multivitamins and calcium that we provide in the office (they will provide all the vitamins you need). Please make sure you are consuming at least 40-60 ounces of water in addition to your 3 protein shakes daily. Do not hesitate to contact the office with any questions at . The patient's medical history has been reviewed and they are considered low risk for post op DVT and therefore DVT prophylaxis is not considered necessary. Travel after surgery was reviewed. The patient has not disclosed any travel plans during the first 30 days after surgery and they have been advised that within the first 30 days after surgery any bus, plane, train or car travel over 2 hours in duration is contraindicated due to the possibility of developing blood clots from immobility. Any travel, needs to include periods of ambulation of 10 minutes in duration every 2 hours.? The patient was instructed to discuss any plans for travel during this period with their bariatric surgeon. Assessment: stable s/p laparoscopic sleeve gastrectomy and repair of hiatal hernia
[2021-09-24] MEDS: Famotidine/PF 20 MG/2 ML VIAL IVPUSH ×2 (15:00→20:44)
[2021-09-24 15:04] LABS: Hematocrit 39.5 % (37.0-47.0); Hemoglobin 12.7 g/dl (12.0-16.0)
[2021-09-24] MEDS: fentaNYL citrate/PF 100 MCG/2 ML VIAL 25 MCG IVPUSH (15:09)
[2021-09-24 15:31] LABS: Anion Gap 18 (12-20); Blood Urea Nitrogen 6 mg/dL (9-16); Calcium 8.7 mg/dL (8.4-10.2); Carbon Dioxide 17 mmol/L (22-29); Chloride 109 mmol/L (96-108); Creatinine Clr Calc Pharmacy 127.6; Estimated Glomerular Filt Rate > 60; Glucose Random 117 mg/dL (60-115); Potassium 4.6 mmol/L (3.3-5.1); Sodium 139 mmol/L (135-145)
[2021-09-24] MEDS: Lactated Ringers 1,000 ML 100 ML IVCONT (16:34)
[2021-09-24] MEDS: ondansetron HCL 4 MG/2 ML VIAL IVPUSH ×2 (16:51→23:28)
[2021-09-24] MEDS: ceFAZolin Sodium/Dextrose,Iso 2 GM/50 ML PIGGYBACK IV (16:52)
[2021-09-24] MEDS: Lithium Carbonate ER 450 MG TABLET.ER 900 MG PO (20:44)
[2021-09-24] MEDS: LORazepam 1 MG TABLET PO (20:44)
[2021-09-24] MEDS: hydrOXYzine HCL 25 MG TABLET PO (20:44)
[2021-09-24] MEDS: HYDROmorphone HCl 0.5 MG/0.5 ML SYRINGE 0.25 MG IVPUSH (22:15)
[2021-09-24] MEDS: 0.9 % Sodium Chloride Flush 3 ML SYRINGE IVFLUSH (23:28)
[2021-09-25] MEDS: Lactated Ringers 1,000 ML 100 ML IVCONT (00:02)
[2021-09-25 03:39] VITALS: BP 103/56; PULSE 73; RESP 16; TEMP 36.7; O2SAT 96
[2021-09-25 06:09] LABS: MANUAL DIFF FLAG NO
[2021-09-25 06:18] LABS: Hematocrit 35.5 % (37.0-47.0); Hemoglobin 11.3 g/dl (12.0-16.0); Imm Gran Abs Auto 0.01 X10*3/uL (0.00-0.03); Imm Gran Pct Auto 0.2 % (0.0-0.4); Lymphocytes Absolute Auto 0.7 X10*3/uL (1.2-4.9); Lymphocytes Percent Auto 10.2 % (20-40); Mean Corpuscular HGB Conc 31.8 g/dl (31.0-35.0); Mean Corpuscular Hemoglobin 27.4 pg (27.0-33.0); Monocytes Absolute Auto 0.5 X10*3/uL (0.1-1.2); Monocytes Percent Auto 8.3 % (2-11); Neutrophils Absolute Auto 5.2 x10*3/uL (2.0-8.3); Neutrophils Percent Auto 81.3 % (45-73); Platelet Count 153 X10*3/uL (160-400); Red Blood Count 4.13 X10*6/uL (4.20-5.50); Red Cell Distribution Width 14.7 % (11.0-16.0); White Blood Count 6.4 X10*3/uL (4.8-10.8)
[2021-09-25 07:37] VITALS: BP 134/79; PULSE 72; RESP 18; TEMP 37.6; O2SAT 98
--- NOTE | 2021-09-25 12:48 | MHC.CM.PN ---
NURSE RANCH HELPER NOTE ELECTRONIC MEICAL RECORD REVIEWED ALONG WITH CASE DISCUSSED WITH STAFF LISA Patrick, MET WITH PATIENT SHE LIVES WITH HER AND CHILDREN, SHE IN NOT CURRENTLY EMPLOYED AND IS ACTIVE INDEPENEDNTENT IN ALL ALDS AND MOBILITY WITH OUT ANY DEVICES , SHE HAS A NEBULIZER THAT SHE OWNS FOR WHEN SHE HAS A ASTHMA EXACERBATION, SHE HAS NO VNA NO DME SERVICES IN THE HOME , SHE REPORTED SHE HAS A HCP NAMING HER HER PROXY (COPY REQUETED TO BE MAILED INTO THE [facility] REC[facility]DS, SHE HAS RECIVED HER COVID MODERNA VACINATIONS X3. S/P BARIATRIC SURGERY AND IS AWARE THAT SHE WILL BE DISCHARGED HOME TODAY NO SERVCIES DISCHARGE PLAN HOME WITH AND FAMILY , NO SERVICES PCP INSTRUCTED PATIENT TO [facility] FOR PCP APPOINTMENT TO BE [facility] DISCHARGE BARIATRIC SURGEON FOLLOW UP PER DISCHARGE INSTRUCTIONS TRANSPORTATION FAMILY
--- NOTE | 2021-09-25 13:42 | HO.POSTANES ---
Post Anesthesia Evaluation Post Anesthesia Evaluation Vital Signs: Vital Signs Temp Pulse Resp BP Pulse Ox O2 Del Method 09/25/21 07:37 99.7 F 72 18 134/79 98 Room Air 09/25/21 03:39 98.1 F 73 16 103/56 L 96 Room Air Anesthesia: General Endotracheal-GETA Mental Status: Awake Pain Control: Satisfactory Nausea/Vomiting: None Hydration: Adequate Anesthesia-Related Issues: No Anes. Related Issues
== END 2021-09-25 12:51 | disposition home or self-care (01) | DRG 403 ==
LOC: HO.SSSA 08:22 → HO.S3 12:15
PROVIDERS: Nurse Practitioner; Physician Assistant Surgical; Admitting Provider Surgery; PCP Family Medicine; Visit Provider Surgery
PROC: 0DB64Z3 Excision of Stomach, Percutaneous Endoscopic Approach, Vertical (ICD-10-PCS; CPT 43845; principal; 2021-09-24 10:10)
DX: E66.01 Morbid (severe) obesity due to excess calories (principal); K76.0 Fatty (change of) liver, not elsewhere classified; K44.0 Diaphragmatic hernia with obstruction, without gangrene; G43.909 Migraine, unspecified, not intractable, without status migrainosus; K21.9 Gastro-esophageal reflux disease without esophagitis; G47.00 Insomnia, unspecified; F31.9 Bipolar disorder, unspecified; J45.909 Unspecified asthma, uncomplicated; F41.1 Generalized anxiety disorder; D18.09 Hemangioma of other sites; Z20.822 Contact with and (suspected) exposure to COVID-19; Z68.41 Body mass index [BMI] 40.0-44.9, adult; Z91.040 Latex allergy status; Z88.2 Allergy status to sulfonamides; Z88.8 Allergy status to other drugs, medicaments and biological substances; Z79.899 Other long term (current) drug therapy
CPT/HCPCS: 36415; 80048; 80053; 80061; 81025; 83036; 83525; 84443; 85014; 85018; 85025; 85610; 85730; 86140; 86850; 86900; 86901; 87635; 88307; 88342; A4649; C9088; J0131; J0690; J1100; J1170; J2250; J2405; J3010

== ENCOUNTER 2021-10-03 02:14 | Emergency (ER) | payer BC, MEDICAID, SELFPAY ==
--- NOTE | 2021-10-03 | ECG_ITS ---
Test Reason : SYNCOPE Blood Pressure : / mmHG Vent. Rate : 052 BPM Atrial Rate : 052 BPM P-R Int : 154 ms QRS Dur : 094 ms QT Int : 422 ms P-R-T Axes : 023 005 006 degrees QTc Int : 392 ms Sinus bradycardia T wave abnormality, consider anterior ischemia Abnormal ECG When compared with ECG of 27-AUG-2021 09:36, T wave inversion more evident in Anterior leads QT has shortened Referred By: Generic ED Physician Electronically Signed By:Jorje Nash
--- NOTE | ~2021-10-03 | XR_ITS ---
EXAMINATION: XR CHEST CLINICAL INFORMATION: Syncope COMPARISON: None TECHNIQUE: Frontal view of the chest was obtained. FINDINGS: No significant abnormality is noted involving the heart, lungs, mediastinum, bony thorax or soft tissues. XR/XR chest 1V IMPRESSION: Unremarkable examination.
--- NOTE | ~2021-10-03 | CT_ITS ---
EXAMINATION: CT HEAD WITHOUT CONTRAST CLINICAL INFORMATION: Syncope. Head injury. Evaluate for a fracture, hemorrhage. COMPARISON: None TECHNIQUE: Contiguous axial imaging was performed from the skull base to vertex without intravenous administration of contrast. This CT examination was performed using dose optimization techniques as appropriate, variously including the following: *Automated exposure control *Adjustment of mA and/or kV according to patient size (this includes techniques or standardized protocols for targeted exams where dose is matched to indication/reason for exam; i.e. extremities or head) *Use of iterative reconstruction technique DLP: 612 mGy-cm FINDINGS: There is no evidence of acute intracranial hemorrhage or territorial infarction. No abnormal mass effect or midline shift is seen. [place] to white matter differentiation is well preserved. No extra-axial fluid collections are identified. The ventricles are normal in size. There is no abnormal attenuation within the brain parenchyma. The osseous structures and soft tissues are normal. The mastoid air cells and visualized portions of the paranasal sinuses are well aerated. CT/CT head/brain wo con IMPRESSION: No acute intracranial hemorrhage or mass effect.
--- NOTE | ~2021-10-03 | CT_ITS ---
EXAMINATION: CT ABDOMEN AND PELVIS WITH CONTRAST CLINICAL INFORMATION: Right upper and lower quadrant pain. Gastric bypass surgery 4 days ago. COMPARISON: Upper GI examination and abdominal ultrasound dated 09/21/2021. TECHNIQUE: Multidetector volumetric images were obtained from the superior aspect of the liver through the pubic symphysis following administration 65 mL of Omnipaque 350 intravenous contrast. Sagittal and coronal reformatted images were obtained on the technologist's workstation. Oral contrast: No This CT examination was performed using dose optimization techniques as appropriate, variously including the following: *Automated exposure control *Adjustment of mA and/or kV according to patient size (this includes techniques or standardized protocols for targeted exams where dose is matched to indication/reason for exam; i.e. extremities or head) *Use of iterative reconstruction technique DLP: 803 mGy-cm FINDINGS: LUNG BASES: The visualized lung bases are unremarkable. LIVER, GALLBLADDER, AND BILIARY TREE: The liver is normal in size, shape, and attenuation. Within the central right hepatic lobe there is a 3 cm hypodensity measuring approximately 53 Hounsfield units. Findings are nonspecific and unchanged when compared to the prior ultrasound. Findings may represent a hemangioma. There appears to be minimal peripheral nodular enhancement. Fatty sparing redemonstrated adjacent to the falciform ligament. No biliary ductal dilatation is present. The gallbladder is unremarkable with no evidence of radiopaque gallstones, gallbladder wall thickening, or obvious pericholecystic inflammatory changes. PANCREAS: Unremarkable. SPLEEN: Unremarkable. ADRENAL GLANDS: Unremarkable. KIDNEYS AND URETERS: The kidneys are normal in size, shape, and attenuation. No hydronephrosis, hydroureter, or calculi seen. No perinephric stranding. BLADDER: Unremarkable. GASTROINTESTINAL TRACT: Status post sleeve gastrectomy. Minimal adjacent stranding consistent with postsurgical change. No evidence of perforation or abscess formation. No bowel wall thickening or inflammatory change. No small- or large-bowel obstruction. Contrast seen within the colon from the prior upper abdominal examination. Unremarkable appendix. PERITONEAL CAVITY: Trace free fluid within the pelvis without abscess formation. No intra-abdominal free air. ABDOMINAL WALL: Postsurgical change along the right anterior abdominal wall. No postoperative seroma. No abdominal wall hernia. LYMPH NODES: No significant lymphadenopathy. VASCULAR: Unremarkable. PELVIC VISCERA: The uterus and adnexa are unremarkable. OSSEOUS STRUCTURES: Unremarkable. CT/CT abdomen pelvis w con IMPRESSION: 1. Status post sleeve gastrectomy. No evidence of perforation or abscess formation. No small- or large-bowel obstruction. No bowel wall thickening or inflammatory change. Unremarkable appendix. 2. Trace pelvic free fluid which may be postsurgical or physiologic. No intra-abdominal free air. No abscess formation. 3. Postsurgical change along the right anterior abdominal wall without seroma/hematoma formation. No abdominal wall hernia. 4. Probable hepatic hemangioma measuring 3 cm within the central right hepatic lobe. Findings are unchanged when compared to the prior ultrasound. No additional hepatic parenchymal lesion or biliary ductal dilatation. Fleischner guidelines were followed.
--- NOTE | ~2021-10-03 | US_ITS ---
EXAMINATION: US ABDOMEN LIMITED CLINICAL INFORMATION: Right upper quadrant pain. Evaluate for cholelithiasis, cholecystitis. COMPARISON: CT abdomen/pelvis done earlier the same day. TECHNIQUE: Real-time imaging of the gallbladder. Portal vein and SMV Doppler images were obtained. FINDINGS: GALLBLADDER: Echogenicity within the gallbladder lumen which could represent gallbladder sludge. No significant gallbladder wall thickening or pericholecystic free fluid to suggest acute cholecystitis. COMMON BILE DUCT: Normal in caliber measuring 0.4 cm in diameter. Hepatopedal flow within the main portal vein without evidence of thrombosis. No thrombosis is seen within the SMV. US/US abdomen limited IMPRESSION: Echogenicity within the gallbladder lumen which could represent gallbladder sludge. No wall thickening or pericholecystic free fluid to suggest acute cholecystitis. Normal flow without evidence of thrombus within the portal vein and SMV.
--- NOTE | ~2021-10-03 | CT_ITS ---
EXAMINATION: CT ANGIOGRAM OF THE CHEST WITHOUT AND WITH CONTRAST (CT PULMONARY ANGIOGRAM FOR PE) CLINICAL INFORMATION: Syncope. Elevated D-dimer. Evaluate for pulmonary embolism. Gastric bypass surgery 4 days ago. COMPARISON: Chest radiograph done earlier the same day. TECHNIQUE: Prior to contrast administration, noncontrast localization images were obtained. Subsequently, multidetector volumetric imaging was performed from the thoracic inlet to below the diaphragms following the administration of 65 mL Omnipaque 350 intravenous contrast. No contrast reaction reported Sagittal, coronal, and MIP oblique sagittal reformatted images were obtained on the CT workstation, uploaded to PACS, and reviewed. This CT examination was performed using dose optimization techniques as appropriate, variously including the following: *Automated exposure control *Adjustment of mA and/or kV according to patient size (this includes techniques or standardized protocols for targeted exams where dose is matched to indication/reason for exam; i.e. extremities or head) *Use of iterative reconstruction technique Total exam dose-length product 329 mGy-cm FINDINGS: QUALITY OF STUDY/CONTRAST BOLUS: Satisfactory. PULMONARY ARTERIES: No central or segmental pulmonary emboli. THORACIC AORTA: No aneurysm or dissection. LUNG: No focal consolidation, nodules or masses. PLEURA: No pleural effusion or pneumothorax. MEDIASTINUM: Normal heart size. No pericardial effusion. No hilar or mediastinal lymphadenopathy. No evidence of septal bowing or right heart strain. CHEST WALL/AXILLA: No axillary or internal mammary lymphadenopathy. OSSEOUS STRUCTURES: No acute or suspicious osseous abnormality. UPPER ABDOMEN: Partially visualized sleeve gastrectomy. No reflux of contrast into the hepatic veins to suggest elevated right heart pressures. CT/CT angio chest PE protocol IMPRESSION: 1. No CT angiographic evidence of acute pulmonary embolism. 2. No airspace consolidation. No pleural effusion or pneumothorax. VTE: Negative
[2021-10-03 02:28] VITALS: BP 116/63; PULSE 60; RESP 16; TEMP 36.6; O2SAT 100; BMI 39.9
[2021-10-03 03:20] LABS: Basophils Percent Auto 0.6 % (0-2); Eosinophils Absolute Auto 0.1 X10*3/uL (0.0-0.4); Eosinophils Percent Auto 1.7 % (0-4); Hematocrit 40.1 % (37.0-47.0); Hemoglobin 12.9 g/dl (12.0-16.0); Imm Gran Abs Auto 0.01 X10*3/uL (0.00-0.03); Imm Gran Pct Auto 0.2 % (0.0-0.4); Lymphocytes Absolute Auto 1.6 X10*3/uL (1.2-4.9); Lymphocytes Percent Auto 28.7 % (20-40); MANUAL DIFF FLAG NO; Mean Corpuscular HGB Conc 32.2 g/dl (31.0-35.0); Mean Corpuscular Volume 87.2 fL (80.0-98.0); Mean Platelet Volume 12.1 fL (9.4-12.3); Monocytes Absolute Auto 0.5 X10*3/uL (0.1-1.2); Monocytes Percent Auto 9.3 % (2-11); Neutrophils Absolute Auto 3.2 x10*3/uL (2.0-8.3); Neutrophils Percent Auto 59.5 % (45-73); Platelet Count 165 X10*3/uL (160-400); Red Cell Distribution Width 15.3 % (11.0-16.0); White Blood Count 5.4 X10*3/uL (4.8-10.8)
[2021-10-03 03:30] LABS: INTERNATIONAL NORM RATIO 1.1 (0.9-1.1); Prothrombin Time 12.9 SEC (9.9-13.0)
[2021-10-03 03:32] LABS: D Dimer High Sensitivity 952 NG/ML
[2021-10-03 03:33] LABS: Partial Thromboplastin Time 33.4 SEC (24.1-38.0)
[2021-10-03 03:45] LABS: COVID-19 Test Negative (Negative)
[2021-10-03] MEDS: 0.9 % Sodium Chloride 1,000 ML 999 ML IV ×2 (03:45→06:04)
[2021-10-03 03:46] LABS: Alanine Aminotransferase 163 U/L (0-31); Albumin Level 4.3 g/dL (3.5-5.0); Alkaline Phosphatase 125 U/L (39-117); Anion Gap 13 (12-20); Aspartate Amino Transferase 88 U/L (5-31); Blood Urea Nitrogen 13 mg/dL (9-16); Calcium 9.6 mg/dL (8.4-10.2); Carbon Dioxide 25 mmol/L (22-29); Chloride 107 mmol/L (96-108); Creatinine Clr Calc Pharmacy 119.2; Estimated Glomerular Filt Rate > 60; Glucose Random 92 mg/dL (60-115); Lipase 16 U/L (8-78); Potassium 3.6 mmol/L (3.3-5.1); Sodium 141 mmol/L (135-145); Total Protein 6.9 g/dL (6.5-8.0)
[2021-10-03 03:48] LABS: Troponin-I High Sensitivity < 3.5 ng/L (<3.5-17.0)
[2021-10-03 04:00] VITALS: BP 110/56; PULSE 57; RESP 19; TEMP 36.8; O2SAT 100
[2021-10-03 04:38] LABS: Appearance Urine HAZY; Color Urine YELLOW; Glucose Urine UA NEG (NEG); Leukocyte Esterase Urine 2+ (NEG); Nitrite Urine NEG (NEG); UACC Culture Trigger YES; Urine Blood TRACE (NEG); Urine Ketones 15 MG/DL (NEG); Urine Protein 1+ MG/DL (NEG-TRACE)
[2021-10-03 04:40] LABS: UPreg QC Valid YES; Urine Pregnancy NEGATIVE (NEGATIVE)
[2021-10-03 04:51] LABS: Bacteria Urine 2+ /LPF; RBC Urine 0-2 /HPF (0); Squamous Epithelial Cell Urine 2+ /LPF
--- NOTE | 2021-10-03 05:04 | ED_ITS ---
HPI - Abdominal Pain General Chief Complaint: Abdominal Pain Stated Complaint: incision pain, took tylenol & seized(gastric bypas Time Seen by Provider: 10/03/21 03:07 Source: patient Mode of arrival: ambulatory Limitations: no limitations History of Present Illness HPI narrative: 36-year-old female who presents emergency department for evaluation of right upper quadrant pain and syncope. The patient had a lap band surgery done on 09/25/2019 to here at [facility]. The patient states that she was hav ing the usual postoperative pain and was taking Tylenol for the pain. She also states she has been on a protein liquid diet. She states that she had a protein shake last night around 18:00 hours. She then went to bed and woke up this morning at 01:00 hours with right upper quadrant pain. She states that it came on suddenly. She describes the pain is an achiness, twisting sensation is if she pulled a muscle. The pain was moderate intensity was 6/10. The pain did not radiate to her back her shoulders. She states that she took Tylenol and water and started to feel ?weird ?, dizzy as if she was going to pass out. She also had nausea. She then woke up on the floor. She is on certain how long she passed out for. She then had her bring her to the emergency department for evaluation. At the time my evaluation she is still experiencing right upper quadrant abdominal pain which she states is 6/10. The patient states that she has had a cough since the surgery which is nonpro ductive. She has had some shortness of breath dyspnea on exertion since the surgery she had nausea which started tonight with no vomiting. She has not noticed any pain or swelling in her lower extremities. Related Data Home Medications Medication Instructions Recorded Confirmed erenumab-aooe 140 mg/mL mg subcut 08/04/21 09/29/21 subcutaneous auto-injector (Aimovig Autoinjector) lorazepam 1 mg tablet 1 mg PO BEDTIME 08/04/21 09/29/21 lurasidone 40 mg tablet (Latuda) 40 mg PO DAILY 08/04/21 09/29/21 melatonin 10 mg tablet 10 mg PO BEDTIME PRN Sleep 08/04/21 09/29/21 lithium carbonate 450 mg 900 mg PO BEDTIME 04/25/22 06/14/22 tablet,extended release hydroxyzine HCl 25 mg tablet 25 mg PO BEDTIME 08/31/21 09/29/21 albuterol sulfate 90 mcg/actuation 2 puff inhalation Q4-6H PRN 09/21/21 09/29/21 aerosol inhaler (ProAir HFA) Wheezing Previous Rx's Medication Instructions Recorded ondansetron HCl 4 mg tablet 4 mg PO Q12H nausea and vomiting 09/18/21 #20 tabs pantoprazole 40 mg tablet,delayed 40 mg PO DAILY #30 tabs 09/18/21 release sucralfate 100 mg/mL oral 10 ml PO BID #400 mL 09/18/21 suspension Allergies Allergy/AdvReac Type Severity Reaction Status Date / Time latex [LATEX] Allergy Unknown Swelling Verified 09/29/21 14:34 sulfamethoxazole Allergy Unknown Rash Verified 09/29/21 14:34 [From BACTRIM] trazodone [TRAZODONE] Allergy Unknown Insomnia Verified 09/29/21 14:34 trimethoprim [From BACTRIM] Allergy Unknown Rash Verified 09/29/21 14:34 CHOCOLATE Allergy Unknown Migraine Uncoded 09/21/21 10:44 From FLONASE Allergy Unknown Migraine Uncoded 09/21/21 10:44 Review of Systems Review of Systems Yes all other systems are reviewed and are negative [facility] Past Medical History [facility] Narrative: Social history: The patient denies tobacco use. She states she occasionally drinks alcohol but has not had any alcohol to drink since her surgery. She denies drug use. Medical History Asthma Bipolar depression Depression Obesity Surgical History H/O laparoscopy History of myringotomy Hx of dilation and curettage Family History Family History Mother Mental health disorder Arthritis Thyroid condition Father Arthritis Autism Hypertension Brother No problems noted. Sister No problems noted. Son No problems noted. Daughter Autism ADHD Social History Social History Are you a primary cardiac care unit nurse to a significant other at home: No Do you presently have visiting nurse or other home services: No Alcohol intake: current Alcohol intake frequency: holidays/special occasions only Patient Tobacco Use Status: Never used Tobacco Advance Directives: No service: No Current occupational status: unemployed Physical Exam ED Vital Signs: Vital Signs - 24 hr 10/03/21 02:28 10/03/21 04:00 10/03/21 06:00 Temperature 97.9 F 98.3 F 98.3 F Pulse Rate 60 57 54 Respiratory Rate 16 19 15 Blood Pressure 116/63 110/56 L 108/48 L Pulse Oximetry 100 100 100 Oxygen Delivery Method Room Air Room Air Room Air BMI result Body Mass Index 39.9 Const General: cooperative and no acute distress Orientation/consciousness: oriented to person and oriented to place Limitations: no limitations HENMT Head: Yes normal to inspection, Yes normocephalic and Yes atraumatic Ears: external ears normal General nose exam: Normal external nose present Face and sinus: Yes normal facial exam Mouth: Normal oral and palatal mucosa present Throat: Yes posterior oropharynx normal Eyes General: appearance normal, both eyes and all related structures Pupils: Equal, round and reactive pupils present Neck Neck: Yes normal visual inspection, Yes no lymphadenopathy, Yes trachea midline and Yes supple Chest Chest palpation & inspection: normal inspection of the chest and normal palpation of entire chest wall Resp Effort & Inspection: normal respiratory effort and able to speak in complete sentences Auscultation: clear to auscultation bilaterally Cardio Rate: regular rate Rhythm: regular rhythm Heart sounds: S1 normal heart sound present, S2 normal heart sound present and no murmurs GI Other: Patient's laparoscopic surgical wounds are intact with some ecchymosis around the wounds, Steri-Strips are still in place, there is no increased erythema or warmth around these wounds. The patient does have moderate right upper quadrant and moderate right lower quadrant tenderness, she has normoactive bowel sounds, there is no rebound. General: Yes no CVA tenderness Back/Spine/Pelvis Back: no CVA tenderness Skin General skin exam: no rashes or lesions noted Neuro General: oriented to person and oriented to place Cranial nerves: Yes CN's II-XII intact bilaterally and Yes Equal, round and reactive pupils present Cognition (Neuro): normal cognition Motor exam (neuro): 5/5 motor strength present throughout Extrem General: Yes normal to inspection Psych Appearance: grossly normal Speech and movement: Normal speech and movement present Affect: normal affect Attitude: cooperative Thought process: Normal thought process present Thought content: Normal thought content present Course Course Course Narrative: 36-year-old female who presents emergency department for evaluation of sudden onset of right upper quadrant abdominal pain at 01:00 hours associated with nausea and a syncopal episode. The patient had a lap band surgery on 09/24/2021. Vital signs were unremarkable. Abdominal exam did reveal right upper quadrant and right lower quadrant tenderness. Differential includes was not limited to acute cholecystitis, appendicitis, bowel obstruction, internal hernia, pulmonary embolism. Laboratory evaluation EKG, CT scan of the head without contrast, CT pulmonary angiogram PE protocol and CT scan of the abdomen pelvis with IV contrast will be obtained. Patient was given morphine 4 mg IV, Zofran 4 mg IV and normal saline x1 L. 0514: Lab evaluation: CBC was normal. PT/INR/PTT were normal. D-dimer elevated 950. AST, ALT and alk-phos were elevated at 88, 163 and 125. Lipase was normal. Troponin was below detectable limits. Radiology evaluation: Chest x-ray was unremarkable. EKG: Patient has T-wave inversions in 3, V1, V2 and V3. 0825: CT scan scans of the head, abdomen pelvis and CT pulmonary angiogram PE protocol were all unremarkable except for a probable 3 cm hepatic hemangioma in the central right hepatic lobe. This was unchanged from the previous ultrasound. The patient required a 2nd dose of morphine 4 mg IV. She continues to have right upper quadrant tenderness therefore I ordered a right upper quadrant ultrasound to evaluate for gallstones and cholecystitis. At the end of my shift, the patient's care was turned over to my colleague, Dr. Rodríguez.. MDM - Abdominal Pain Lab Data Result diagrams: 10/03/21 03:15 10/03/21 03:15 Labs: Lab Results 10/03/21 10/03/21 10/03/21 Range/Units 03:15 03:15 03:15 WBC 5.4 (4.8-10.8) X10*3/uL RBC 4.60 (4.20-5.50) X10*6/uL Hgb 12.9 (12.0-16.0) g/dl Hct 40.1 (37.0-47.0) % MCV 87.2 (80.0-98.0) fL MCH 28.0 (27.0-33.0) pg MCHC 32.2 (31.0-35.0) g/dl RDW 15.3 (11.0-16.0) % Plt Count 165 (160-400) X10*3/uL MPV 12.1 (9.4-12.3) fL Immature Gran % (Auto) 0.2 (0.0-0.4) % Neut % (Auto) 59.5 (45-73) % Lymph % (Auto) 28.7 (20-40) % [place] % (Auto) 9.3 (2-11) % Eos % (Auto) 1.7 (0-4) % Baso % (Auto) 0.6 (0-2) % Lymph # (Auto) 1.6 (1.2-4.9) X10*3/uL [place] # (Auto) 0.5 (0.1-1.2) X10*3/uL Eos # (Auto) 0.1 (0.0-0.4) X10*3/uL Baso # (Auto) 0.0 (0.0-0.2) X10*3/uL Abs Immat Gran (auto) 0.01 (0.00-0.03) X10*3/uL Absolute Neuts (auto) 3.2 (2.0-8.3) x10*3/uL Absolute Nucleated RBC 0.000 (0.0-0.012) X10*3/uL Nucleated RBC % (auto) 0.0 (0.0-0.2) /100WBC PT (9.9-13.0) SEC INR (0.9-1.1) APTT (24.1-38.0) SEC D-Dimer High Sensitivty NG/ML Sodium 141 (135-145) mmol/L Potassium 3.6 D (3.3-5.1) mmol/L Chloride 107 (96-108) mmol/L Carbon Dioxide 25 (22-29) mmol/L Anion Gap 13 (12-20) BUN 13 D (9-16) mg/dL Creatinine 0.82 (0.5-1.4) mg/dL Estim Creat Clear Calc 119.2 Estimated GFR > 60 Random Glucose 92 (60-115) mg/dL Calcium 9.6 D (8.4-10.2) mg/dL Total Bilirubin 1.0 (0.0-1.0) mg/dL AST 88 H (5-31) U/L ALT 163 H (0-31) U/L Alkaline Phosphatase 125 H (39-117) U/L Troponin I High Sens < 3.5 (<3.5-17.0) ng/L Total Protein 6.9 (6.5-8.0) g/dL Albumin 4.3 (3.5-5.0) g/dL Lipase 16 (8-78) U/L Urine Color Urine Appearance Urine pH (5.0-8.0) Ur Specific Foley (1.005-1.025) Urine Protein (NEG-TRACE) MG/DL Urine Glucose (UA) (NEG) MG/DL Urine Ketones (NEG) MG/DL Urine Blood (NEG) Urine Nitrite (NEG) Ur Leukocyte Esterase (NEG) Urine RBC (0) /HPF Urine WBC (0-4) /HPF Ur Squamous Epith Cells /LPF Urine Bacteria /LPF Urine Test (NEGATIVE) COVID-19 (SHAD) (Negative) COVID-19 Clin Com 10/03/21 10/03/21 10/03/21 Range/Units 03:15 03:24 04:31 WBC (4.8-10.8) X10*3/uL RBC (4.20-5.50) X10*6/uL Hgb (12.0-16.0) g/dl Hct (37.0-47.0) % MCV (80.0-98.0) fL MCH (27.0-33.0) pg MCHC (31.0-35.0) g/dl RDW (11.0-16.0) % Plt Count (160-400) X10*3/uL MPV (9.4-12.3) fL Immature Gran % (Auto) (0.0-0.4) % Neut % (Auto) (45-73) % Lymph % (Auto) (20-40) % [place] % (Auto) (2-11) % Eos % (Auto) (0-4) % Baso % (Auto) (0-2) % Lymph # (Auto) (1.2-4.9) X10*3/uL [place] # (Auto) (0.1-1.2) X10*3/uL Eos # (Auto) (0.0-0.4) X10*3/uL Baso # (Auto) (0.0-0.2) X10*3/uL Abs Immat Gran (auto) (0.00-0.03) X10*3/uL Absolute Neuts (auto) (2.0-8.3) x10*3/uL Absolute Nucleated RBC (0.0-0.012) X10*3/uL Nucleated RBC % (auto) (0.0-0.2) /100WBC PT 12.9 (9.9-13.0) SEC INR 1.1 (0.9-1.1) APTT 33.4 (24.1-38.0) SEC D-Dimer High Sensitivty 952 NG/ML Sodium (135-145) mmol/L Potassium (3.3-5.1) mmol/L Chloride (96-108) mmol/L Carbon Dioxide (22-29) mmol/L Anion Gap (12-20) BUN (9-16) mg/dL Creatinine (0.5-1.4) mg/dL Estim Creat Clear Calc Estimated GFR Random Glucose (60-115) mg/dL Calcium (8.4-10.2) mg/dL Total Bilirubin (0.0-1.0) mg/dL AST (5-31) U/L ALT (0-31) U/L Alkaline Phosphatase (39-117) U/L Troponin I High Sens (<3.5-17.0) ng/L Total Protein (6.5-8.0) g/dL Albumin (3.5-5.0) g/dL Lipase (8-78) U/L Urine Color YELLOW Urine Appearance HAZY Urine pH 8.0 (5.0-8.0) Ur Specific Foley 1.010 (1.005-1.025) Urine Protein 1+ H (NEG-TRACE) MG/DL Urine Glucose (UA) NEG (NEG) MG/DL Urine Ketones 15 (NEG) MG/DL Urine Blood TRACE (NEG) Urine Nitrite NEG (NEG) Ur Leukocyte Esterase 2+ H (NEG) Urine RBC 0-2 (0) /HPF Urine WBC 1-4 (0-4) /HPF Ur Squamous Epith Cells 2+ /LPF Urine Bacteria 2+ /LPF Urine Test (NEGATIVE) COVID-19 (SHAD) Negative (Negative) COVID-19 Clin Com See Note 10/03/21 Range/Units 04:31 WBC (4.8-10.8) X10*3/uL RBC (4.20-5.50) X10*6/uL Hgb (12.0-16.0) g/dl Hct (37.0-47.0) % MCV (80.0-98.0) fL MCH (27.0-33.0) pg MCHC (31.0-35.0) g/dl RDW (11.0-16.0) % Plt Count (160-400) X10*3/uL MPV (9.4-12.3) fL Immature Gran % (Auto) (0.0-0.4) % Neut % (Auto) (45-73) % Lymph % (Auto) (20-40) % [place] % (Auto) (2-11) % Eos % (Auto) (0-4) % Baso % (Auto) (0-2) % Lymph # (Auto) (1.2-4.9) X10*3/uL [place] # (Auto) (0.1-1.2) X10*3/uL Eos # (Auto) (0.0-0.4) X10*3/uL Baso # (Auto) (0.0-0.2) X10*3/uL Abs Immat Gran (auto) (0.00-0.03) X10*3/uL Absolute Neuts (auto) (2.0-8.3) x10*3/uL Absolute Nucleated RBC (0.0-0.012) X10*3/uL Nucleated RBC % (auto) (0.0-0.2) /100WBC PT (9.9-13.0) SEC INR (0.9-1.1) APTT (24.1-38.0) SEC D-Dimer High Sensitivty NG/ML Sodium (135-145) mmol/L Potassium (3.3-5.1) mmol/L Chloride (96-108) mmol/L Carbon Dioxide (22-29) mmol/L Anion Gap (12-20) BUN (9-16) mg/dL Creatinine (0.5-1.4) mg/dL Estim Creat Clear Calc Estimated GFR Random Glucose (60-115) mg/dL Calcium (8.4-10.2) mg/dL Total Bilirubin (0.0-1.0) mg/dL AST (5-31) U/L ALT (0-31) U/L Alkaline Phosphatase (39-117) U/L Troponin I High Sens (<3.5-17.0) ng/L Total Protein (6.5-8.0) g/dL Albumin (3.5-5.0) g/dL Lipase (8-78) U/L Urine Color Urine Appearance Urine pH (5.0-8.0) Ur Specific Foley (1.005-1.025) Urine Protein (NEG-TRACE) MG/DL Urine Glucose (UA) (NEG) MG/DL Urine Ketones (NEG) MG/DL Urine Blood (NEG) Urine Nitrite (NEG) Ur Leukocyte Esterase (NEG) Urine RBC (0) /HPF Urine WBC (0-4) /HPF Ur Squamous Epith Cells /LPF Urine Bacteria /LPF Urine Test NEGATIVE (NEGATIVE) COVID-19 (SHAD) (Negative) COVID-19 Clin Com ECG Data Attestation: I personally reviewed and interpreted this ECG as follows: Interpretation: 0257: Sinus bradycardia with a rate of 52, normal [place] interval, QRS duration QTC interval, inverted T-wave in lead 3, V1, V2 and V3, no PACs, no PVCs. Compared to EKG dated 08/27/2021, inverted T-wave in lead 3 is new, the patient had inverted T-waves in V1 and V2. The inverted T-wave in V3 is new. Discharge Plan Discharge Clinical Impression: Abdominal pain, Syncope, vasovagal Patient Disposition: Still a Patient Instructions: Abdominal Pain (ED) Prescriptions: No Action albuterol sulfate [ProAir HFA] 90 mcg/actuation Hfa Aerosol Inhaler 2 puff INHALATION Q4-6H PRN (Reason: Wheezing) lorazepam 1 mg tablet 1 mg PO BEDTIME melatonin 10 mg tablet 10 mg PO BEDTIME PRN (Reason: Sleep) Aimovig Autoinjector 140 mg/mL auto-injector subcut Latuda 40 mg tablet 40 mg PO DAILY lithium carbonate 450 mg tablet extended release 900 mg PO BEDTIME hydroxyzine HCl 25 mg tablet 25 mg PO BEDTIME pantoprazole 40 mg tablet,delayed release (DR/EC) 40 mg PO DAILY Qty: 30 2RF sucralfate 100 mg/mL suspension 10 ml PO BID Qty: 400 2RF ondansetron HCl 4 mg tablet 4 mg PO Q12H Qty: 20 0RF
[2021-10-03 06:00] VITALS: BP 108/48; PULSE 54; RESP 15; TEMP 36.8; O2SAT 100
[2021-10-03] MEDS: ondansetron HCL 4 MG/2 ML VIAL IVPUSH (06:04)
[2021-10-03] MEDS: Morphine Sulfate 4 MG/ML CARTRIDGE IVPUSH ×3 (06:04→09:37)
[2021-10-03] MEDS: iohexoL 350 MG/ML 100 ML INFUS..BTL IV (07:31)
[2021-10-03 10:40] VITALS: BP 108/54; PULSE 56; RESP 18; O2SAT 99
[2021-10-03 11:19] VITALS: BP 116/56; PULSE 57; RESP 16; TEMP 36.6; O2SAT 98
--- NOTE | 2021-10-03 11:23 | PC.NURSE ---
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
== END 2021-10-03 12:28 | disposition home or self-care (01) ==
PROVIDERS: Emergency Provider Emergency Medicine Emergency Medical Services; PCP Family Medicine
DX: R10.11 Right upper quadrant pain (principal); R55 Syncope and collapse; R00.1 Bradycardia, unspecified; Z98.84 Bariatric surgery status
CPT/HCPCS: 36415; 70450; 71045; 71275; 74177; 76705; 80053; 81001; 81025; 83690; 84484; 85025; 85379; 85610; 85730; 87086; 87635; 93005; 96361; 96374; 96375; 96376; 99285; J2270; J2405; Q9967

== ENCOUNTER 2022-03-16 18:06 | Inpatient (IN) | payer BC, MEDICAID, SELFPAY ==
--- NOTE | 2022-03-16 | ECG_ITS ---
Test Reason : MEDICAL CLEAR Blood Pressure : / mmHG Vent. Rate : 071 BPM Atrial Rate : 071 BPM P-R Int : 154 ms QRS Dur : 094 ms QT Int : 438 ms P-R-T Axes : 059 015 034 degrees QTc Int : 475 ms Normal sinus rhythm Nonspecific T wave abnormality Abnormal ECG When compared with ECG of 03-OCT-2021 02:57, Heart rate has increased Referred By: Millie Tariq Electronically Signed By:TSERING CHAKRABORTY MD
--- NOTE | 2022-03-16 18:15 | ED.PSYCH ---
HPI - Psych General Chief Complaint: Psychiatric Symptoms Stated Complaint: section 12 Time Seen by Provider: 03/16/22 18:14 Source: patient and EMS Mode of arrival: EMS Limitations: no limitations History of Present Illness HPI Narrative: 36-year-old female history of asthma, bipolar depression, depression, obesity presenting to the emergency department via ambulance on a Section 12. Patient states that she just cannot handle life anymore, having issues with job and family life. Admits to anxiety and depression, denies elaine at this time. Admits to self-harming earlier today, by cutting superficial left wrist. Has had recent changes to her medications, feels like they arent working. Denies homicidal behavior, however states does not mind if in atomic bomb dropped on the entire community. Denies auditory, visual, tactile hallucinations. Denies use of alcohol, tobacco, or drugs. Has not been hospitalized in the past before for psychiatric conditions. Medical complaints at this time include currently being treated by for a kidney stone by her PCP since tuesday, thinks she is on Flomax, no new symptoms infact states sx improving. Denies fever, chest pain, shortness of breath, nausea, vomiting, diarrhea, headache, dysuria, hematuria, change in odor of urine, urinary frequency, back pain, or visual changes. Treatments prior to arrival: placed on mental health hold Related Data Home Medications Medication Instructions Recorded Confirmed acetaminophen 300 mg-codeine 15 mg 1 tab PO Q6H PRN pain 03/16/22 03/16/22 tablet albuterol sulfate 90 mcg/actuation 2 puff inhalation Q6H 03/16/22 03/16/22 aerosol inhaler fluticasone propionate 110 2 puff inhalation BID 03/16/22 03/16/22 mcg/actuation HFA aerosol inhaler (Flovent HFA) lithium carbonate 450 mg 1 tab PO BEDTIME 03/16/22 03/16/22 tablet,extended release lorazepam 1 mg tablet 1 - 2 tab PO BEDTIME PRN insomnia 03/16/22 03/16/22 lumateperone 42 mg capsule 1 cap PO QPM 03/16/22 03/16/22 (Caplyta) ubrogepant 50 mg tablet (Ubrelvy) 1 tab PO NEEDED 03/16/22 03/16/22 Allergies Allergy/AdvReac Type Severity Reaction Status Date / Time latex [LATEX] Allergy Unknown Swelling Verified 11/23/21 16:05 sulfamethoxazole Allergy Unknown Rash Verified 11/23/21 16:05 [From BACTRIM] trazodone [TRAZODONE] Allergy Unknown Insomnia Verified 11/23/21 16:05 trimethoprim [From BACTRIM] Allergy Unknown Rash Verified 11/23/21 16:05 CHOCOLATE Allergy Unknown Migraine Uncoded 11/23/21 16:05 From FLONASE Allergy Unknown Migraine Uncoded 11/23/21 16:05 Review of Systems Review of Systems: Constitutional : No Weight loss, No Fever, No Chills, No Fatigue, No Malaise ENT/Mouth : No sore throat, No Rhinorrhea Eyes: No Eye Pain, No Swelling, No Redness Cardiovascular : No Chest Pain, No SOB, No Dyspnea on Exertion, No Orthopnea, No Edema, No Palpitations Respiratory : No Cough, No Sputum, No Wheezing Gastrointestinal : No Nausea, No Vomiting, No Diarrhea, No Constipation, No abdominal Pain, No Hematochezia, No Melena Genitourinary : No Dysuria, No Urinary Frequency, No Hematuria, Musculoskeletal : No joint pain, No Myalgias, No Joint Swelling Skin : No Skin Lesions, No rash Neuro : No Weakness, No Numbness, No Dizziness, No Headache Psych : + Anxiety/Panic, + Depression, - Elaine, +SI, -HI, -A/V/T Hallucinations All other systems reviewed and are negative Yes all other systems are reviewed and are negative PMFSH Past Medical History Attestation statement: The following information was validated with the patient. Source: old records reviewed and nursing notes reviewed Medical History (Updated 03/16/22 @ 20:26 by GABRIEL Contreras) Asthma Bipolar depression Depression GERD (gastroesophageal reflux disease) Hemangioma Insomnia Migraines Obesity Steatosis, liver Surgical History H/O laparoscopy History of myringotomy Hx of dilation and curettage Family History Family History Mother Mental health disorder Arthritis Thyroid condition Father Arthritis Autism Hypertension Brother No problems noted. Sister No problems noted. Son No problems noted. Daughter Autism ADHD Social History Social History Are you a primary director long term care to a significant other at home: No Do you presently have visiting nurse or other home services: No Alcohol intake: current Alcohol intake frequency: holidays/special occasions only Patient Tobacco Use Status: Never used Tobacco Advance Directives: No Advance Directives Information Provided: No service: No Current occupational status: unemployed Physical Exam Vital Signs: Vital Signs: Last Vital Signs Temp 98.2 F 03/16/22 18:49 Pulse 66 03/16/22 18:49 Resp 18 03/16/22 18:49 BP 129/67 03/16/22 18:49 Pulse Ox 98 03/16/22 18:49 O2 Del Method 03/16/22 18:49 BMI result Body Mass Index 32.9 vss Appearance: Alert.? Oriented X3.? No acute distress.? Head: Normocephalic, atraumatic, no step-offs or deformities Eyes: Pupils equal, round and reactive to light.? CVS: Normal heart rate and rhythm.? Pulses normal.? Respiratory: No respiratory distress.? Breath sounds normal.? Abdomen: Soft and nontender.? Active bowel sounds all 4 quadrants. CVA tenderness negative bilaterally. Skin: Skin warm and dry.? Normal skin color.? Normal skin turgor.?+ superficial lacs to left wrist Extremities: No lower extremity edema.? No calf ttp. 5/5 strength to bilateral upper and lower extremities Neuro: Oriented X 3.? No motor deficit.? No sensory deficit. CN 2-12 intact. Course Reevaluation(s) Reevaluation #1: CBC wnl. Chemistry no acute findings. UA clean, preg neg, tox + for opiates. Normal lithium. Negative salicyltates, acetaminophen. Ethanol 84. COVID negative. Patient will be placed into observation at this time. VSS. Time: 20:25 MDM - Psych MDM Narrative Medical decision making narrative: 1815 36-year-old female presents on a Section 12 via EMS for si, anxiety, depression worsening over past few days. Physical exam benign. Plan medical clearance evaluation by the behavioral health team Medical Records Attestation: I reviewed the patient's medical records. Lab Data Attestation: I reviewed the patient's lab results. Result diagrams: 03/16/22 19:24 11/29/22 19:24 Labs: Lab Results 03/16/22 03/16/22 03/16/22 Range/Units 19:05 19:24 19:24 WBC 6.4 (4.8-10.8) X10*3/uL RBC 4.73 (4.20-5.50) X10*6/uL Hgb 13.4 (12.0-16.0) g/dl Hct 42.2 (37.0-47.0) % MCV 89.2 (80.0-98.0) fL MCH 28.3 (27.0-33.0) pg MCHC 31.8 (31.0-35.0) g/dl RDW 13.2 (11.0-16.0) % Plt Count 209 D (160-400) X10*3/uL MPV 11.5 (9.4-12.3) fL Immature Gran % (Auto) 0.3 (0.0-0.4) % Neut % (Auto) 70.2 (45-73) % Lymph % (Auto) 23.0 (20-40) % [place] % (Auto) 4.6 (2-11) % Eos % (Auto) 1.4 (0-4) % Baso % (Auto) 0.5 (0-2) % Lymph # (Auto) 1.5 (1.2-4.9) X10*3/uL [place] # (Auto) 0.3 (0.1-1.2) X10*3/uL Eos # (Auto) 0.1 (0.0-0.4) X10*3/uL Baso # (Auto) 0.0 (0.0-0.2) X10*3/uL Abs Immat Gran (auto) 0.02 (0.00-0.03) X10*3/uL Absolute Neuts (auto) 4.5 (2.0-8.3) x10*3/uL Absolute Nucleated RBC 0.000 (0.0-0.012) X10*3/uL Nucleated RBC % (auto) 0.0 (0.0-0.2) /100WBC Sodium 143 (135-145) mmol/L Potassium 4.6 D (3.3-5.1) mmol/L Chloride 108 (96-108) mmol/L Carbon Dioxide 26 (22-29) mmol/L Anion Gap 14 (12-20) BUN 6 L D (9-16) mg/dL Creatinine 0.71 (0.5-1.4) mg/dL Estim Creat Clear Calc 120.0 Estimated GFR > 60 Random Glucose 88 (60-115) mg/dL Calcium 9.6 (8.4-10.2) mg/dL Magnesium 2.1 (1.6-2.6) mg/dL Total Bilirubin 0.3 (0.0-1.0) mg/dL AST 21 D (5-31) U/L ALT 18 (0-31) U/L Alkaline Phosphatase 110 (39-117) U/L Total Protein 6.8 (6.5-8.0) g/dL Albumin 4.3 (3.5-5.0) g/dL Urine Color Urine Appearance Urine pH (5.0-9.0) Ur Specific [place] (1.005-1.025) Urine Protein (Neg-Trace) mg/dL Urine Glucose (UA) (Negative) mg/dL Urine Ketones (Negative) mg/dL Urine Blood (Negative) Urine Nitrite (Negative) Ur Leukocyte Esterase (Negative) Urine Test (NEGATIVE) Salicylates (15-30) mg/dL Urine Opiates Screen (Not Detect) Urine Fentanyl Screen (Not Detect) Acetaminophen (<30) mcg/mL Ur Barbiturates Screen (Not Detect) Ur Phencyclidine Scrn (Not Detect) Ur Amphetamines Screen (Not Detect) U Benzodiazepines Scrn (Not Detect) [place] (0.60-1.20) mmol/L Urine Cocaine Screen (Not Detect) U Marijuana (THC) Screen (Not Detect) Ethyl Alcohol 84 mg/dL COVID-19 (SHAD) Negative (Negative) COVID-19 Clin Com See Note 03/16/22 03/16/22 03/16/22 Range/Units 19:24 19:24 19:32 WBC (4.8-10.8) X10*3/uL RBC (4.20-5.50) X10*6/uL Hgb (12.0-16.0) g/dl Hct (37.0-47.0) % MCV (80.0-98.0) fL MCH (27.0-33.0) pg MCHC (31.0-35.0) g/dl RDW (11.0-16.0) % Plt Count (160-400) X10*3/uL MPV (9.4-12.3) fL Immature Gran % (Auto) (0.0-0.4) % Neut % (Auto) (45-73) % Lymph % (Auto) (20-40) % [place] % (Auto) (2-11) % Eos % (Auto) (0-4) % Baso % (Auto) (0-2) % Lymph # (Auto) (1.2-4.9) X10*3/uL [place] # (Auto) (0.1-1.2) X10*3/uL Eos # (Auto) (0.0-0.4) X10*3/uL Baso # (Auto) (0.0-0.2) X10*3/uL Abs Immat Gran (auto) (0.00-0.03) X10*3/uL Absolute Neuts (auto) (2.0-8.3) x10*3/uL Absolute Nucleated RBC (0.0-0.012) X10*3/uL Nucleated RBC % (auto) (0.0-0.2) /100WBC Sodium (135-145) mmol/L Potassium (3.3-5.1) mmol/L Chloride (96-108) mmol/L Carbon Dioxide (22-29) mmol/L Anion Gap (12-20) BUN (9-16) mg/dL Creatinine (0.5-1.4) mg/dL Estim Creat Clear Calc Estimated GFR Random Glucose (60-115) mg/dL Calcium (8.4-10.2) mg/dL Magnesium (1.6-2.6) mg/dL Total Bilirubin (0.0-1.0) mg/dL AST (5-31) U/L ALT (0-31) U/L Alkaline Phosphatase (39-117) U/L Total Protein (6.5-8.0) g/dL Albumin (3.5-5.0) g/dL Urine Color Urine Appearance Urine pH (5.0-9.0) Ur Specific [place] (1.005-1.025) Urine Protein (Neg-Trace) mg/dL Urine Glucose (UA) (Negative) mg/dL Urine Ketones (Negative) mg/dL Urine Blood (Negative) Urine Nitrite (Negative) Ur Leukocyte Esterase (Negative) Urine Test NEGATIVE (NEGATIVE) Salicylates < 5.0 L (15-30) mg/dL Urine Opiates Screen (Not Detect) Urine Fentanyl Screen (Not Detect) Acetaminophen < 1 (<30) mcg/mL Ur Barbiturates Screen (Not Detect) Ur Phencyclidine Scrn (Not Detect) Ur Amphetamines Screen (Not Detect) U Benzodiazepines Scrn (Not Detect) [place] 0.66 (0.60-1.20) mmol/L Urine Cocaine Screen (Not Detect) U Marijuana (THC) Screen (Not Detect) Ethyl Alcohol mg/dL COVID-19 (SHAD) (Negative) COVID-19 Clin Com 03/16/22 03/16/22 Range/Units 19:32 19:33 WBC (4.8-10.8) X10*3/uL RBC (4.20-5.50) X10*6/uL Hgb (12.0-16.0) g/dl Hct (37.0-47.0) % MCV (80.0-98.0) fL MCH (27.0-33.0) pg MCHC (31.0-35.0) g/dl RDW (11.0-16.0) % Plt Count (160-400) X10*3/uL MPV (9.4-12.3) fL Immature Gran % (Auto) (0.0-0.4) % Neut % (Auto) (45-73) % Lymph % (Auto) (20-40) % [place] % (Auto) (2-11) % Eos % (Auto) (0-4) % Baso % (Auto) (0-2) % Lymph # (Auto) (1.2-4.9) X10*3/uL [place] # (Auto) (0.1-1.2) X10*3/uL Eos # (Auto) (0.0-0.4) X10*3/uL Baso # (Auto) (0.0-0.2) X10*3/uL Abs Immat Gran (auto) (0.00-0.03) X10*3/uL Absolute Neuts (auto) (2.0-8.3) x10*3/uL Absolute Nucleated RBC (0.0-0.012) X10*3/uL Nucleated RBC % (auto) (0.0-0.2) /100WBC Sodium (135-145) mmol/L Potassium (3.3-5.1) mmol/L Chloride (96-108) mmol/L Carbon Dioxide (22-29) mmol/L Anion Gap (12-20) BUN (9-16) mg/dL Creatinine (0.5-1.4) mg/dL Estim Creat Clear Calc Estimated GFR Random Glucose (60-115) mg/dL Calcium (8.4-10.2) mg/dL Magnesium (1.6-2.6) mg/dL Total Bilirubin (0.0-1.0) mg/dL AST (5-31) U/L ALT (0-31) U/L Alkaline Phosphatase (39-117) U/L Total Protein (6.5-8.0) g/dL Albumin (3.5-5.0) g/dL Urine Color Yellow Urine Appearance Clear Urine pH 7.0 (5.0-9.0) Ur Specific [place] 1.010 (1.005-1.025) Urine Protein Negative (Neg-Trace) mg/dL Urine Glucose (UA) Negative (Negative) mg/dL Urine Ketones Trace (Negative) mg/dL Urine Blood Negative (Negative) Urine Nitrite Negative (Negative) Ur Leukocyte Esterase Negative (Negative) Urine Test (NEGATIVE) Salicylates (15-30) mg/dL Urine Opiates Screen POSITIVE H (Not Detect) Urine Fentanyl Screen Not Detected (Not Detect) Acetaminophen (<30) mcg/mL Ur Barbiturates Screen Not Detected (Not Detect) Ur Phencyclidine Scrn Not Detected (Not Detect) Ur Amphetamines Screen Not Detected (Not Detect) U Benzodiazepines Scrn Not Detected (Not Detect) [place] (0.60-1.20) mmol/L Urine Cocaine Screen Not Detected (Not Detect) U Marijuana (THC) Screen Not Detected (Not Detect) Ethyl Alcohol mg/dL COVID-19 (SHAD) (Negative) COVID-19 Clin Com Critical Care Time Critical Care Time Critical Care Time: No Discharge Plan Discharge Clinical Impression: Suicidal ideation, Acute anxiety, Alcohol intoxication Prescriptions: No Action acetaminophen-codeine 300-15 mg tablet 1 tab PO Q6H PRN (Reason: pain) lithium carbonate 450 mg tablet extended release 1 tab PO BEDTIME lorazepam 1 mg tablet 1 - 2 tab PO BEDTIME PRN (Reason: insomnia) albuterol sulfate 90 mcg/actuation HFA aerosol inhaler 2 puff inhalation Q6H fluticasone propionate [Flovent HFA] 110 mcg/actuation HFA aerosol inhaler 2 puff inhalation BID Ubrelvy 50 mg tablet 1 tab PO NEEDED Caplyta 42 mg capsule 1 cap PO QPM
--- NOTE | 2022-03-16 18:39 | ED.PSYCH ---
HPI - Psych General Chief Complaint: Psychiatric Symptoms Stated Complaint: section 12 Time Seen by Provider: 03/16/22 18:14 Source: patient and EMS Mode of arrival: EMS History of Present Illness Treatments prior to arrival: placed on mental health hold Related Data Home Medications Medication Instructions Recorded Confirmed acetaminophen 300 mg-codeine 15 mg 1 tab PO Q6H PRN pain 03/16/22 03/16/22 tablet albuterol sulfate 90 mcg/actuation 2 puff inhalation Q6H 03/16/22 03/16/22 aerosol inhaler fluticasone propionate 110 2 puff inhalation BID 03/16/22 03/16/22 mcg/actuation HFA aerosol inhaler (Flovent HFA) lithium carbonate 450 mg 1 tab PO BEDTIME 03/16/22 03/16/22 tablet,extended release lorazepam 1 mg tablet 1 - 2 tab PO BEDTIME PRN insomnia 03/16/22 03/16/22 lumateperone 42 mg capsule 1 cap PO QPM 03/16/22 03/16/22 (Caplyta) ubrogepant 50 mg tablet (Ubrelvy) 1 tab PO NEEDED 03/16/22 03/16/22 Allergies Allergy/AdvReac Type Severity Reaction Status Date / Time latex [LATEX] Allergy Unknown Swelling Verified 11/23/21 16:05 sulfamethoxazole Allergy Unknown Rash Verified 11/23/21 16:05 [From BACTRIM] trazodone [TRAZODONE] Allergy Unknown Insomnia Verified 11/23/21 16:05 trimethoprim [From BACTRIM] Allergy Unknown Rash Verified 11/23/21 16:05 CHOCOLATE Allergy Unknown Migraine Uncoded 11/23/21 16:05 From FLONASE Allergy Unknown Migraine Uncoded 11/23/21 16:05 [facility] Past Medical History Attestation statement: The following information was validated with the patient. Source: nursing notes reviewed Medical History (Updated 12/25/21 @ 09:34 by Evelina Vaughn PA-C) Asthma Bipolar depression Depression GERD (gastroesophageal reflux disease) Hemangioma Insomnia Migraines Obesity Steatosis, liver Surgical History H/O laparoscopy History of myringotomy Hx of dilation and curettage Family History Family History Mother Mental health disorder Arthritis Thyroid condition Father Arthritis Autism Hypertension Brother No problems noted. Sister No problems noted. Son No problems noted. Daughter Autism ADHD Social History Social History Are you a primary healthcare market consultant to a significant other at home: No Do you presently have visiting nurse or other home services: No Alcohol intake: current Alcohol intake frequency: holidays/special occasions only Patient Tobacco Use Status: Never used Tobacco Advance Directives: No Advance Directives Information Provided: No service: No Current occupational status: unemployed Physical Exam Vital Signs: Vital Signs: Last Vital Signs Temp 98.2 F 03/16/22 18:49 Pulse 66 03/16/22 18:49 Resp 18 03/16/22 18:49 BP 129/67 03/16/22 18:49 Pulse Ox 98 03/16/22 18:49 O2 Del Method 03/16/22 18:49 BMI result Body Mass Index 32.9 MDM - Psych Lab Data Result diagrams: 03/16/22 19:24 03/16/22 19:24 Labs: Lab Results 03/16/22 03/16/22 03/16/22 Range/Units 19:05 19:24 19:24 WBC 6.4 (4.8-10.8) X10*3/uL RBC 4.73 (4.20-5.50) X10*6/uL Hgb 13.4 (12.0-16.0) g/dl Hct 42.2 (37.0-47.0) % MCV 89.2 (80.0-98.0) fL MCH 28.3 (27.0-33.0) pg MCHC 31.8 (31.0-35.0) g/dl RDW 13.2 (11.0-16.0) % Plt Count 209 D (160-400) X10*3/uL MPV 11.5 (9.4-12.3) fL Immature Gran % (Auto) 0.3 (0.0-0.4) % Neut % (Auto) 70.2 (45-73) % Lymph % (Auto) 23.0 (20-40) % [place] % (Auto) 4.6 (2-11) % Eos % (Auto) 1.4 (0-4) % Baso % (Auto) 0.5 (0-2) % Lymph # (Auto) 1.5 (1.2-4.9) X10*3/uL [place] # (Auto) 0.3 (0.1-1.2) X10*3/uL Eos # (Auto) 0.1 (0.0-0.4) X10*3/uL Baso # (Auto) 0.0 (0.0-0.2) X10*3/uL Abs Immat Gran (auto) 0.02 (0.00-0.03) X10*3/uL Absolute Neuts (auto) 4.5 (2.0-8.3) x10*3/uL Absolute Nucleated RBC 0.000 (0.0-0.012) X10*3/uL Nucleated RBC % (auto) 0.0 (0.0-0.2) /100WBC Sodium 143 (135-145) mmol/L Potassium 4.6 D (3.3-5.1) mmol/L Chloride 108 (96-108) mmol/L Carbon Dioxide 26 (22-29) mmol/L Anion Gap 14 (12-20) BUN 6 L D (9-16) mg/dL Creatinine 0.71 (0.5-1.4) mg/dL Estim Creat Clear Calc 120.0 Estimated GFR > 60 Random Glucose 88 (60-115) mg/dL Calcium 9.6 (8.4-10.2) mg/dL Magnesium 2.1 (1.6-2.6) mg/dL Total Bilirubin 0.3 (0.0-1.0) mg/dL AST 21 D (5-31) U/L ALT 18 (0-31) U/L Alkaline Phosphatase 110 (39-117) U/L Total Protein 6.8 (6.5-8.0) g/dL Albumin 4.3 (3.5-5.0) g/dL Urine Color Urine Appearance Urine pH (5.0-9.0) Ur Specific [place] (1.005-1.025) Urine Protein (Neg-Trace) mg/dL Urine Glucose (UA) (Negative) mg/dL Urine Ketones (Negative) mg/dL Urine Blood (Negative) Urine Nitrite (Negative) Ur Leukocyte Esterase (Negative) Urine Test (NEGATIVE) Salicylates (15-30) mg/dL Urine Opiates Screen (Not Detect) Urine Fentanyl Screen (Not Detect) Acetaminophen (<30) mcg/mL Ur Barbiturates Screen (Not Detect) Ur Phencyclidine Scrn (Not Detect) Ur Amphetamines Screen (Not Detect) U Benzodiazepines Scrn (Not Detect) [employer] (0.60-1.20) mmol/L Urine Cocaine Screen (Not Detect) U Marijuana (THC) Screen (Not Detect) Ethyl Alcohol 84 mg/dL COVID-19 (SHAD) Negative (Negative) COVID-19 Clin Com See Note 03/16/22 03/16/22 03/16/22 Range/Units 19:24 19:24 19:32 WBC (4.8-10.8) X10*3/uL RBC (4.20-5.50) X10*6/uL Hgb (12.0-16.0) g/dl Hct (37.0-47.0) % MCV (80.0-98.0) fL MCH (27.0-33.0) pg MCHC (31.0-35.0) g/dl RDW (11.0-16.0) % Plt Count (160-400) X10*3/uL MPV (9.4-12.3) fL Immature Gran % (Auto) (0.0-0.4) % Neut % (Auto) (45-73) % Lymph % (Auto) (20-40) % [place] % (Auto) (2-11) % Eos % (Auto) (0-4) % Baso % (Auto) (0-2) % Lymph # (Auto) (1.2-4.9) X10*3/uL [place] # (Auto) (0.1-1.2) X10*3/uL Eos # (Auto) (0.0-0.4) X10*3/uL Baso # (Auto) (0.0-0.2) X10*3/uL Abs Immat Gran (auto) (0.00-0.03) X10*3/uL Absolute Neuts (auto) (2.0-8.3) x10*3/uL Absolute Nucleated RBC (0.0-0.012) X10*3/uL Nucleated RBC % (auto) (0.0-0.2) /100WBC Sodium (135-145) mmol/L Potassium (3.3-5.1) mmol/L Chloride (96-108) mmol/L Carbon Dioxide (22-29) mmol/L Anion Gap (12-20) BUN (9-16) mg/dL Creatinine (0.5-1.4) mg/dL Estim Creat Clear Calc Estimated GFR Random Glucose (60-115) mg/dL Calcium (8.4-10.2) mg/dL Magnesium (1.6-2.6) mg/dL Total Bilirubin (0.0-1.0) mg/dL AST (5-31) U/L ALT (0-31) U/L Alkaline Phosphatase (39-117) U/L Total Protein (6.5-8.0) g/dL Albumin (3.5-5.0) g/dL Urine Color Urine Appearance Urine pH (5.0-9.0) Ur Specific [place] (1.005-1.025) Urine Protein (Neg-Trace) mg/dL Urine Glucose (UA) (Negative) mg/dL Urine Ketones (Negative) mg/dL Urine Blood (Negative) Urine Nitrite (Negative) Ur Leukocyte Esterase (Negative) Urine Test NEGATIVE (NEGATIVE) Salicylates < 5.0 L (15-30) mg/dL Urine Opiates Screen (Not Detect) Urine Fentanyl Screen (Not Detect) Acetaminophen < 1 (<30) mcg/mL Ur Barbiturates Screen (Not Detect) Ur Phencyclidine Scrn (Not Detect) Ur Amphetamines Screen (Not Detect) U Benzodiazepines Scrn (Not Detect) [employer] 0.66 (0.60-1.20) mmol/L Urine Cocaine Screen (Not Detect) U Marijuana (THC) Screen (Not Detect) Ethyl Alcohol mg/dL COVID-19 (SHAD) (Negative) COVID-19 Clin Com 03/16/22 03/16/22 Range/Units 19:32 19:33 WBC (4.8-10.8) X10*3/uL RBC (4.20-5.50) X10*6/uL Hgb (12.0-16.0) g/dl Hct (37.0-47.0) % MCV (80.0-98.0) fL MCH (27.0-33.0) pg MCHC (31.0-35.0) g/dl RDW (11.0-16.0) % Plt Count (160-400) X10*3/uL MPV (9.4-12.3) fL Immature Gran % (Auto) (0.0-0.4) % Neut % (Auto) (45-73) % Lymph % (Auto) (20-40) % [place] % (Auto) (2-11) % Eos % (Auto) (0-4) % Baso % (Auto) (0-2) % Lymph # (Auto) (1.2-4.9) X10*3/uL [place] # (Auto) (0.1-1.2) X10*3/uL Eos # (Auto) (0.0-0.4) X10*3/uL Baso # (Auto) (0.0-0.2) X10*3/uL Abs Immat Gran (auto) (0.00-0.03) X10*3/uL Absolute Neuts (auto) (2.0-8.3) x10*3/uL Absolute Nucleated RBC (0.0-0.012) X10*3/uL Nucleated RBC % (auto) (0.0-0.2) /100WBC Sodium (135-145) mmol/L Potassium (3.3-5.1) mmol/L Chloride (96-108) mmol/L Carbon Dioxide (22-29) mmol/L Anion Gap (12-20) BUN (9-16) mg/dL Creatinine (0.5-1.4) mg/dL Estim Creat Clear Calc Estimated GFR Random Glucose (60-115) mg/dL Calcium (8.4-10.2) mg/dL Magnesium (1.6-2.6) mg/dL Total Bilirubin (0.0-1.0) mg/dL AST (5-31) U/L ALT (0-31) U/L Alkaline Phosphatase (39-117) U/L Total Protein (6.5-8.0) g/dL Albumin (3.5-5.0) g/dL Urine Color Yellow Urine Appearance Clear Urine pH 7.0 (5.0-9.0) Ur Specific [place] 1.010 (1.005-1.025) Urine Protein Negative (Neg-Trace) mg/dL Urine Glucose (UA) Negative (Negative) mg/dL Urine Ketones Trace (Negative) mg/dL Urine Blood Negative (Negative) Urine Nitrite Negative (Negative) Ur Leukocyte Esterase Negative (Negative) Urine Test (NEGATIVE) Salicylates (15-30) mg/dL Urine Opiates Screen POSITIVE H (Not Detect) Urine Fentanyl Screen Not Detected (Not Detect) Acetaminophen (<30) mcg/mL Ur Barbiturates Screen Not Detected (Not Detect) Ur Phencyclidine Scrn Not Detected (Not Detect) Ur Amphetamines Screen Not Detected (Not Detect) U Benzodiazepines Scrn Not Detected (Not Detect) [employer] (0.60-1.20) mmol/L Urine Cocaine Screen Not Detected (Not Detect) U Marijuana (THC) Screen Not Detected (Not Detect) Ethyl Alcohol mg/dL COVID-19 (SHAD) (Negative) COVID-19 Clin Com Discharge Plan Discharge Prescriptions: No Action acetaminophen-codeine 300-15 mg tablet 1 tab PO Q6H PRN (Reason: pain) lithium carbonate 450 mg tablet extended release 1 tab PO BEDTIME lorazepam 1 mg tablet 1 - 2 tab PO BEDTIME PRN (Reason: insomnia) albuterol sulfate 90 mcg/actuation HFA aerosol inhaler 2 puff inhalation Q6H fluticasone propionate [Flovent HFA] 110 mcg/actuation HFA aerosol inhaler 2 puff inhalation BID Ubrelvy 50 mg tablet 1 tab PO NEEDED Caplyta 42 mg capsule 1 cap PO QPM
[2022-03-16 18:49] VITALS: BP 129/67; BP 133/80; PULSE 66; PULSE 76; RESP 18; TEMP 36.8; O2SAT 98; O2SAT 99; BMI 32.9
[2022-03-16 19:28] LABS: MANUAL DIFF FLAG NO
[2022-03-16 19:31] LABS: COVID-19 Test Negative (Negative); IDNOW Serial# BCCEAD1C
[2022-03-16 19:37] LABS: Lithium 0.66 mmol/L (0.60-1.20)
[2022-03-16 19:42] LABS: Basophils Percent Auto 0.5 % (0-2); Eosinophils Absolute Auto 0.1 X10*3/uL (0.0-0.4); Eosinophils Percent Auto 1.4 % (0-4); Hematocrit 42.2 % (37.0-47.0); Hemoglobin 13.4 g/dl (12.0-16.0); Imm Gran Abs Auto 0.02 X10*3/uL (0.00-0.03); Imm Gran Pct Auto 0.3 % (0.0-0.4); Lymphocytes Absolute Auto 1.5 X10*3/uL (1.2-4.9); Mean Corpuscular HGB Conc 31.8 g/dl (31.0-35.0); Mean Corpuscular Hemoglobin 28.3 pg (27.0-33.0); Mean Corpuscular Volume 89.2 fL (80.0-98.0); Mean Platelet Volume 11.5 fL (9.4-12.3); Monocytes Absolute Auto 0.3 X10*3/uL (0.1-1.2); Monocytes Percent Auto 4.6 % (2-11); Neutrophils Absolute Auto 4.5 x10*3/uL (2.0-8.3); Neutrophils Percent Auto 70.2 % (45-73); Platelet Count 209 X10*3/uL (160-400); Red Blood Count 4.73 X10*6/uL (4.20-5.50); Red Cell Distribution Width 13.2 % (11.0-16.0); White Blood Count 6.4 X10*3/uL (4.8-10.8)
[2022-03-16 19:46] LABS: Alanine Aminotransferase 18 U/L (0-31); Albumin Level 4.3 g/dL (3.5-5.0); Alkaline Phosphatase 110 U/L (39-117); Anion Gap 14 (12-20); Aspartate Amino Transferase 21 U/L (5-31); Bilirubin Total 0.3 mg/dL (0.0-1.0); Blood Urea Nitrogen 6 mg/dL (9-16); Calcium 9.6 mg/dL (8.4-10.2); Carbon Dioxide 26 mmol/L (22-29); Chloride 108 mmol/L (96-108); Estimated Glomerular Filt Rate > 60; Ethanol 84 mg/dL; Glucose Random 88 mg/dL (60-115); Magnesium 2.1 mg/dL (1.6-2.6); Potassium 4.6 mmol/L (3.3-5.1); Sodium 143 mmol/L (135-145); Total Protein 6.8 g/dL (6.5-8.0)
[2022-03-16 19:47] LABS: Acetaminophen LAB < 1 mcg/mL (<30); Salicylate < 5.0 mg/dL (15-30)
[2022-03-16 19:53] LABS: UPreg QC Valid YES; Urine Pregnancy NEGATIVE (NEGATIVE)
[2022-03-16 19:53] LABS: Amphetamine Screen Urine Not Detected (Not Detect); Barbiturates, Urine Not Detected (Not Detect); Benzodiazepines Screen Urine Not Detected (Not Detect); Cannabinoid Screen Urine Not Detected (Not Detect); Cocaine Screen Urine Not Detected (Not Detect); Fentanyl, urine Not Detected (Not Detect); Opiate Screen Urine POSITIVE (Not Detect); Phencyclidine Screen Urine Not Detected (Not Detect)
[2022-03-16 19:55] LABS: Appearance Urine Clear; Color Urine Yellow; Glucose Urine UA Negative (Negative); Leukocyte Esterase Urine Negative (Negative); Nitrite Urine Negative (Negative); Urine Blood Negative (Negative); Urine Ketones Trace mg/dL (Negative); Urine Protein Negative (Neg-Trace)
--- NOTE | 2022-03-16 21:11 | PHA.MEDREC ---
med rec done by RN, reviewed by pharmacy Pharmacy Consult ? Medication Reconciliation Pharmacy has completed the medication reconciliation.
[2022-03-16] MEDS: Diphth,Pertus(ACell),Tet Adult 0.5 ML SYRINGE IM (21:28)
[2022-03-16] MEDS: Acetaminophen 325 MG TABLET 650 MG PO (21:33)
[2022-03-16] MEDS: Albuterol Sulfate 90 MCG 8 GM INHALER 2 PUFF INHALE (21:33)
[2022-03-16] MEDS: Lithium Carbonate ER 450 MG TABLET.ER PO (21:33)
[2022-03-16] MEDS: Nitrofurantoin Monohyd/M-Cryst 100 MG CAPSULE PO ×2 (22:16→22:18)
[2022-03-16] MEDS: lamoTRIgine 25 MG TABLET 75 MG PO (22:16)
[2022-03-16] MEDS: Lurasidone HCl 40 MG TABLET PO (22:16)
[2022-03-16] MEDS: LORazepam 1 MG TABLET PO (22:17)
--- NOTE | 2022-03-17 00:07 | PC.ADMIT ---
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 PT IS A CONDITIONAL VOLUNTARY ON 15 MINUTE SAFETY CHECKS. ASSIGNED TO PSYCH GROUPS. LABS UNREMARKABLE. VITAL SIGNS STABLE. COVID NEGATIVE. NOT A TOBACCO USER. ALREADY RECEIVED THE FLU VACCINE FOR THIS SEASON. PT WAS ASSESSED BY CARE TEAM DUE TO EXPRESSING SUICIDAL IDEATION WITH AN UNSPECIFIED PLAN. PT IS STILL ENDORSING SI, STATING I CONSTANTLY HAVE FEELINGS OF DEPRESSION AND SUICIDAL IDEATION BUT IT HAS GOTTEN WAY WORSE OVER THE PAST 2 OR 3 WEEKS . PT HAS HAD RECENT STRESSORS SUCH FINANCIAL PROBLEMS, REPORTING THEY MAY LOSE THE HOUSE IF SHE DOESNT GO BACK TO WORK, HOWEVER, SHE DOES NOT BELIEVE SHE CAN DUE TO HER CURRENT MENTAL STATE. PT LIVES WITH HER TWO CHILDREN AND . PT REPORTS THAT DUE TO HER DAUGHTER'S CONDITION (AUTISM) SHE BARELY SLEEPS. PT HAD BARIATRIC SURGERY APPROXIMATELY 8 MONTHS AGO AND REPORTS A DECREASE IN APPETITE. PT REPORTS PROBLEM WITH HER KIDNEYS THAT CAUSE HER SEVERE PAIN. PT REPORTS CYCLING FROM HYPOMANIA TO DEPRESSION TO STABLE OVER THE PAST MONTH AND A HALF. SHE DENIES HI/AH/VH. PT REPORTS SEVERE DEPRESSION AND ANXIETY. PT DOES NOT APPEAR TO BE RESPONDING TO INTERNAL STIMULI. SHE DOES HAVE A HISTORY OF PAST SUICIDE ATTEMPTS AND PSYCHIATRIC ADMISSIONS OVER THE PAST 10 YEARS. PT HAS BEEN INVOLVED WITH A PSYCHIATRIST AND THERAPIST CONSISTENTLY. PT REPORTS ALCOHOL USE OF 1-2 GLASSES OF WINE EVERY FEW DAYS. PT DOES NOT APPEAR TO BE WITHDRAWING. PT STATED SHE CAN SEEK STAFF IF FEELINGS OVER SI BECOME OVERWHELMING OR IF SHE DEVELOPS A PLAN. PT IS SAFE ON UNIT AT THE MOMENT. SHE WAS COOPERATIVE WITH LEGALS AND ADMISSION PROCESS.
[2022-03-17 07:56] VITALS: BP 124/79; PULSE 85; RESP 16; TEMP 36.8; O2SAT 98
[2022-03-17] MEDS: Nitrofurantoin Monohyd/M-Cryst 100 MG CAPSULE PO ×2 (09:08→21:24)
[2022-03-17 09:57] LABS: Estimated Average Glucose 88 mg/dL; Hemoglobin A1c % 4.7 %
[2022-03-17 10:33] LABS: Cholesterol 156 mg/dL; Free T4 (Free Thyroxine) 0.95 ng/dL (0.71-1.85); HDL Cholesterol 50 mg/dL; LDL Cholesterol Calculated 92 mg/dl; Magnesium 2.1 mg/dL (1.6-2.6); Thyroid Stimulating Hormone 1.52 uIU/mL (0.32-4.0); Triglycerides 73 mg/dL
[2022-03-17 10:43] LABS: Folate 17.1 ng/mL (> or = 4.0); Vitamin B12 690 pg/mL (200-900)
--- NOTE | 2022-03-17 13:55 | PC.NURSE ---
pt reports recent bariatric surgery; regimine includes 2 ensure meal replacements for breakfast and lunch, dinner is a protein and a non-starch. Provider made aware.
--- NOTE | 2022-03-17 15:44 | MHC.CLN ---
NUTRITION CONSULT FOR DIET POST BARIATRIC SURGERY. PATIENT WITH BARIATRIC SURGERY 09/24/21. ALERTED BY PROVIDER OF PREFERENCES. CONTINUE REGULAR DIET. ADDED ENSURE MAX PROTEIN TID. SUPPLEMENT PROVIDES 450 KCALS, 90 GRAMS PROTEIN AND IS APPROPRIATE POST BARIATRIC SURGERY. PATIENT REPORTS THAT TAKES SUPPLEMENT AND HAS A PROTEIN AND NON STARCH FOR DINNER. DINING SERVICES AWARE OF FOOD PREFERENCES.
[2022-03-17] MEDS: Albuterol Sulfate 90 MCG 8 GM INHALER 2 PUFF INHALE (16:16)
--- NOTE | 2022-03-17 17:18 | HO.PSYADMNOT ---
HPI Date of Service: 03/17/22 Chief Complaint: Bipolar Disorder Sources of Information: patient interviewed, chart reviewed and crisis/core team assessment reviewed HPI Subjective Notes: Begum Warning and Conditional Voluntary Healthcare Proxy: No Guardianship: No Medical Problems Affecting Mental Status: Yes (Migraine, Renal Calculi currently) Narrative: 36 yo female, , mother of a 9yo son and 6yo daughter, presents stating just cannot deal with this any longer . Affirms SI with plan to overdose. Pt saw Dr. Ford Dye [employer]-drank wine in the parking lot-states she has been drinking throughout the pandemic to cope. Reports elaine for 1.5 months after [place] taper. Lamictal was introduced and I had a sharp drop but was manic by Halloween. I have been spiraling out of control. 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 Reports her son has a ?mood disorder and her daughter autism. Reports her works 80+ hours per week and is not treated well at work, however she feels anger that he does not help out as much at home and is able to often nap when she is not. Finances are difficult-pt reports they may lose their home Pt is not on SSDI but appears to qualify? she is willing to look into this. Limited supports Meds: [place]-wanted to stop d/t tremor-restarted when manic Latuda change to Caplyta Gabapentin restarted Lorazepam-using alcohol with this- Drinking on medications Past Psychiatric History: IP: 4. Last hospitalization she estimates over 10 years ago OP: Dr. Hunt and Dov Smith Trials: Several SIBS: Wrist SA: Denies Medical Evaluation Reviewed: Yes [facility] Medical History (Updated 03/17/22 @ 17:57 by Marley Grant APRN) Alcohol use disorder, moderate, dependence Asthma Bipolar depression Chronic post-traumatic stress disorder (PTSD) Depression GERD (gastroesophageal reflux disease) Hemangioma Insomnia Migraines Mixed bipolar disorder Obesity Steatosis, liver Surgical History H/O laparoscopy History of myringotomy Hx of dilation and curettage Narrative: Bariatric Surgers 09/2021 [facility] [place] Family History: depression, anxiety, alcohol use d/o mom with cyclical abuse Social History: 13 years. had ADHD, Autism 9yo son-has therapy at home 6 yo daughter-Autism, ADHD. Minimal support from the school. 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 Finances are an issue, family may lose their home Recently their food stamps were stopped Substance History: Alcohol 1/2-1.5 bottles per week Trauma History: affirms Diagnostics Vital Signs (24Hr): Vital Signs - 24 hr 03/16/22 18:49 03/17/22 07:56 Temperature 98.2 F 98.2 F Pulse Rate 66 85 Respiratory Rate 18 16 Blood Pressure 129/67 124/79 Pulse Oximetry 98 98 Oxygen Delivery Method Room Air Room Air BMI result Body Mass Index 32.9 Labs Results: 03/16/22 19:24 03/16/22 19:24 Labs: Laboratory Results - last 48 hr 03/16/22 03/16/22 03/16/22 19:05 19:24 19:24 WBC 6.4 RBC 4.73 Hgb 13.4 Hct 42.2 MCV 89.2 MCH 28.3 MCHC 31.8 RDW 13.2 Plt Count 209 D MPV 11.5 Immature Gran % (Auto) 0.3 Neut % (Auto) 70.2 Lymph % (Auto) 23.0 [place] % (Auto) 4.6 Eos % (Auto) 1.4 Baso % (Auto) 0.5 Lymph # (Auto) 1.5 [place] # (Auto) 0.3 Eos # (Auto) 0.1 Baso # (Auto) 0.0 Abs Immat Gran (auto) 0.02 Absolute Neuts (auto) 4.5 Absolute Nucleated RBC 0.000 Nucleated RBC % (auto) 0.0 Sodium 143 Potassium 4.6 D Chloride 108 Carbon Dioxide 26 Anion Gap 14 BUN 6 L D Creatinine 0.71 Estim Creat Clear Calc 120.0 Estimated GFR > 60 Random Glucose 88 Estimat Average Glucose Hemoglobin A1c % Calcium 9.6 Magnesium 2.1 Total Bilirubin 0.3 AST 21 D ALT 18 Alkaline Phosphatase 110 Total Protein 6.8 Albumin 4.3 Triglycerides Cholesterol LDL Cholesterol, Calc HDL Cholesterol Vitamin B12 Folate TSH Free T4 Urine Color Urine Appearance Urine pH Ur Specific [place] Urine Protein Urine Glucose (UA) Urine Ketones Urine Blood Urine Nitrite Ur Leukocyte Esterase Urine Test Salicylates Urine Opiates Screen Urine Fentanyl Screen Acetaminophen Ur Barbiturates Screen Ur Phencyclidine Scrn Ur Amphetamines Screen U Benzodiazepines Scrn [place] Urine Cocaine Screen U Marijuana (THC) Screen Ethyl Alcohol 84 COVID-19 (SHAD) Negative COVID-19 Clin Com See Note 03/16/22 03/16/22 03/16/22 19:24 19:24 19:32 WBC RBC Hgb Hct MCV MCH MCHC RDW Plt Count MPV Immature Gran % (Auto) Neut % (Auto) Lymph % (Auto) [place] % (Auto) Eos % (Auto) Baso % (Auto) Lymph # (Auto) [place] # (Auto) Eos # (Auto) Baso # (Auto) Abs Immat Gran (auto) Absolute Neuts (auto) Absolute Nucleated RBC Nucleated RBC % (auto) Sodium Potassium Chloride Carbon Dioxide Anion Gap BUN Creatinine Estim Creat Clear Calc Estimated GFR Random Glucose Estimat Average Glucose Hemoglobin A1c % Calcium Magnesium Total Bilirubin AST ALT Alkaline Phosphatase Total Protein Albumin Triglycerides Cholesterol LDL Cholesterol, Calc HDL Cholesterol Vitamin B12 Folate TSH Free T4 Urine Color Urine Appearance Urine pH Ur Specific [place] Urine Protein Urine Glucose (UA) Urine Ketones Urine Blood Urine Nitrite Ur Leukocyte Esterase Urine Test NEGATIVE Salicylates < 5.0 L Urine Opiates Screen Urine Fentanyl Screen Acetaminophen < 1 Ur Barbiturates Screen Ur Phencyclidine Scrn Ur Amphetamines Screen U Benzodiazepines Scrn [place] 0.66 Urine Cocaine Screen U Marijuana (THC) Screen Ethyl Alcohol COVID-19 (SHAD) COVID-19 Clin Com 03/16/22 03/16/22 03/17/22 19:32 19:33 08:50 WBC RBC Hgb Hct MCV MCH MCHC RDW Plt Count MPV Immature Gran % (Auto) Neut % (Auto) Lymph % (Auto) [place] % (Auto) Eos % (Auto) Baso % (Auto) Lymph # (Auto) [place] # (Auto) Eos # (Auto) Baso # (Auto) Abs Immat Gran (auto) Absolute Neuts (auto) Absolute Nucleated RBC Nucleated RBC % (auto) Sodium Potassium Chloride Carbon Dioxide Anion Gap BUN Creatinine Estim Creat Clear Calc Estimated GFR Random Glucose Estimat Average Glucose 88 Hemoglobin A1c % 4.7 Calcium Magnesium Total Bilirubin AST ALT Alkaline Phosphatase Total Protein Albumin Triglycerides Cholesterol LDL Cholesterol, Calc HDL Cholesterol Vitamin B12 Folate TSH Free T4 Urine Color Yellow Urine Appearance Clear Urine pH 7.0 Ur Specific [place] 1.010 Urine Protein Negative Urine Glucose (UA) Negative Urine Ketones Trace Urine Blood Negative Urine Nitrite Negative Ur Leukocyte Esterase Negative Urine Test Salicylates Urine Opiates Screen POSITIVE H Urine Fentanyl Screen Not Detected Acetaminophen Ur Barbiturates Screen Not Detected Ur Phencyclidine Scrn Not Detected Ur Amphetamines Screen Not Detected U Benzodiazepines Scrn Not Detected [place] Urine Cocaine Screen Not Detected U Marijuana (THC) Screen Not Detected Ethyl Alcohol COVID-19 (SHAD) COVID-19 [employer] Com 03/17/22 03/17/22 08:50 08:50 WBC RBC Hgb Hct MCV MCH MCHC RDW Plt Count MPV Immature Gran % (Auto) Neut % (Auto) Lymph % (Auto) [place] % (Auto) Eos % (Auto) Baso % (Auto) Lymph # (Auto) [place] # (Auto) Eos # (Auto) Baso # (Auto) Abs Immat Gran (auto) Absolute Neuts (auto) Absolute Nucleated RBC Nucleated RBC % (auto) Sodium Potassium Chloride Carbon Dioxide Anion Gap BUN Creatinine Estim Creat Clear Calc Estimated GFR Random Glucose Estimat Average Glucose Hemoglobin A1c % Calcium Magnesium 2.1 Total Bilirubin AST ALT Alkaline Phosphatase Total Protein Albumin Triglycerides 73 Cholesterol 156 LDL Cholesterol, Calc 92 HDL Cholesterol 50 Vitamin B12 690 Folate 17.1 TSH 1.52 Free T4 0.95 Urine Color Urine Appearance Urine pH Ur Specific [place] Urine Protein Urine Glucose (UA) Urine Ketones Urine Blood Urine Nitrite Ur Leukocyte Esterase Urine Test Salicylates Urine Opiates Screen Urine Fentanyl Screen Acetaminophen Ur Barbiturates Screen Ur Phencyclidine Scrn Ur Amphetamines Screen U Benzodiazepines Scrn [place] Urine Cocaine Screen U Marijuana (THC) Screen Ethyl Alcohol COVID-19 (SHAD) COVID-19 Clin Com Meds/Allergies Meds Home Medications Medication Instructions Recorded Confirmed Type acetaminophen 300 mg-codeine 15 mg 1 tab PO Q6H PRN pain 03/16/22 03/16/22 History tablet albuterol sulfate 90 mcg/actuation 2 puff inhalation Q6H 03/16/22 03/16/22 History aerosol inhaler codeine 10 mg-guaifenesin 100 mg/5 ml PO 03/16/22 History mL oral liquid fluticasone propionate 110 2 puff inhalation BID 03/16/22 03/16/22 History mcg/actuation HFA aerosol inhaler (Flovent HFA) lamotrigine 25 mg tablet 75 mg PO BEDTIME 03/16/22 03/16/22 History lithium carbonate 450 mg 1 tab PO BEDTIME 03/16/22 03/16/22 History tablet,extended release lorazepam 1 mg tablet 1 - 2 tab PO BEDTIME PRN insomnia 03/16/22 03/16/22 History lumateperone 42 mg capsule 1 cap PO QPM 03/16/22 03/16/22 History (Caplyta) lurasidone 40 mg tablet (Latuda) 1 tab PO BEDTIME 03/16/22 03/16/22 History nitrofurantoin 1 cap PO BID 03/16/22 03/16/22 History monohydrate/macrocrystals 100 mg capsule ubrogepant 50 mg tablet (Ubrelvy) 1 tab PO NEEDED 03/16/22 03/16/22 History Allergies Allergies Allergy/AdvReac Type Severity Reaction Status Date / Time latex [LATEX] Allergy Unknown Swelling Verified 11/23/21 16:05 sulfamethoxazole Allergy Unknown Rash Verified 11/23/21 16:05 [From BACTRIM] trazodone [TRAZODONE] Allergy Unknown Insomnia Verified 11/23/21 16:05 trimethoprim [From BACTRIM] Allergy Unknown Rash Verified 11/23/21 16:05 CHOCOLATE Allergy Unknown Migraine Uncoded 11/23/21 16:05 From FLONASE Allergy Unknown Migraine Uncoded 11/23/21 16:05 Mental Status Exam Mental Status Exam Patient Appearance: Fatigued Patient Orientation: Person, Place, Time and Situation Level of Consciousness: Alert Patient Behavior: Talkative, Cooperative, Anxious, Fatigued, Distractible and Good Eye Contact Mood Description: Depressed Affect Description: Labile Patient Cognition Impaired: No Ability to Follow Directions: Good Speech Pattern: Spontaneous Speech and Pressured Memory Description: Intact Hallucinations: None Delusions: Not Present Perceptual Disturbances: Depersonalization Thought Process: Distracted and Rumination Thought Content: positive for Circumstantial, positive for Perseveration and positive for Suicidal Ideation Depressive Symptoms: Increased Anxiety, Difficulty Sleeping, Hopelessness, Feelings of Guilt, Unhappiness, Thoughts of /Suicide, Low Self Esteem, Loss of Energy and Difficulty Concentrating Judgement: Fair Assessment & Plan Assessment & Plan (1) Mixed bipolar disorder: Status: Acute Code(s): F31.60 - Bipolar disorder, current episode mixed, unspecified (2) Alcohol use disorder, moderate, dependence: Status: Acute Code(s): F10.20 - Alcohol dependence, uncomplicated (3) Chronic post-traumatic stress disorder (PTSD): Status: Acute Code(s): F43.12 - Post-traumatic stress disorder, chronic Plan 36 yo female, presents to her out patient psychiatrists office after drinking wine reporting an increase in depression with SI. Pt reports she has been struggling for several months-Gastric bypass September 2021 with questionable changes in her absorption of medications and efficacy-pt believes this is a definite. Recent elaine with med changes and rapid cycling into a depressed state. Several stressors she is managing and recently discussed with her OP team that she has been drinking alcohol during the pandemic to cope and has increased her use with her meds which also may have effects on efficacy. Pt reports manic sx ~30+ days, and feeling as if she is crashing now. Plan: Continue current med plan from out pt providers Allow alcohol to diminish in her system. Monitor for possible withdrawal. and ongoing diagnostics Re-establish bariatric regime of supplementation (call made to their service for supplies) Collateral contact with OP team for possible new trials Team is looking at assisting pt for mortgage assistance Patient educated on: medication risk/benefits and therapeutic strategies Informed Consent: understands and further education needed Reason for continued inpatient stay Substantial Risk for: rapid decompensation Statement Statement: I have reviewed the history and physical and performed a pertinent examination on my patient. No changes have occurred unless specified.
[2022-03-17 17:37] VITALS: BP 142/72; PULSE 76; RESP 16; TEMP 37.1; O2SAT 97
--- NOTE | 2022-03-17 18:19 | PC.NURSE ---
Family member brought pt's home med Caplyta. Brought to pharmacy.
[2022-03-17] MEDS: hydrOXYzine HCL 25 MG TABLET PO (21:24)
[2022-03-17] MEDS: Gabapentin 300 MG CAPSULE PO (21:24)
[2022-03-17] MEDS: lamoTRIgine 25 MG TABLET 75 MG PO (21:25)
[2022-03-17] MEDS: Lithium Carbonate ER 450 MG TABLET.ER PO (21:25)
[2022-03-17] MEDS: Fluticasone Propionate 100 MCG BLST.W.DEV 2 PUFF INHALE (21:26)
[2022-03-17] MEDS: LORazepam 1 MG TABLET PO (21:34)
[2022-03-18 07:00] VITALS: BMI 32.8
[2022-03-18 07:49] VITALS: BP 174/73; PULSE 86; RESP 16; TEMP 36.6; O2SAT 98
[2022-03-18] MEDS: Gabapentin 300 MG CAPSULE PO ×2 (08:59→21:54)
[2022-03-18] MEDS: Lithium Carbonate ER 450 MG TABLET.ER PO ×2 (09:00→21:55)
[2022-03-18] MEDS: Fluticasone Propionate 100 MCG BLST.W.DEV 2 PUFF INHALE ×2 (09:59→22:02)
[2022-03-18] MEDS: Nitrofurantoin Monohyd/M-Cryst 100 MG CAPSULE PO ×2 (10:02→21:56)
--- NOTE | 2022-03-18 10:49 | HO.PSYCHPN ---
Subjective Subjective Date of Service: 03/18/22 Reason For Visit: Bipolar Disorder Subjective Notes: Conditional Voluntary Healthcare Proxy: No Guardianship: No Medical Problems Affecting Mental Status: No Interim History: Pt reports passing a kidney stone. Bariatric vitamins ordered from [facility] [place] mgt [facility]. Per their office they will bring over a supply and put pt on the rounding list. Continues with anxiety, SI with plan, poor sleep Ativan taper continued Began to discuss options for anxiety mgt-she will consider and will provide information. Medication Compliance: Yes Side effects from medications: No Attending Groups: Intermittent Review of Systems Acute medical concerns: Yes Renal Calculi Medical Review of Systems: unchanged Mental Status Exam Mental Status Exam Patient Appearance: Fatigued Patient Orientation: Person, Place, Time and Situation Level of Consciousness: Alert Patient Behavior: Talkative, Cooperative, Anxious, Fatigued, Distractible and Good Eye Contact Mood Description: Depressed Affect Description: Labile Patient Cognition Impaired: No Ability to Follow Directions: Good Speech Pattern: Spontaneous Speech and Pressured Memory Description: Intact Hallucinations: None Delusions: Not Present Perceptual Disturbances: Depersonalization Thought Process: Distracted and Rumination Thought Content: positive for Circumstantial, positive for Perseveration and positive for Suicidal Ideation Depressive Symptoms: Increased Anxiety, Difficulty Sleeping, Hopelessness, Feelings of Guilt, Unhappiness, Thoughts of /Suicide, Low Self Esteem, Loss of Energy and Difficulty Concentrating Judgement: Fair Diagnostics Vital Signs (24Hr): Vital Signs - 24 hr 03/17/22 17:37 03/18/22 07:49 Temperature 98.7 F 97.8 F Pulse Rate 76 86 Respiratory Rate 16 16 Blood Pressure 142/72 H 174/73 H Pulse Oximetry 97 98 Oxygen Delivery Method Room Air Room Air BMI result Body Mass Index 32.9 Labs Results: 03/16/22 19:24 03/16/22 19:24 Labs: Laboratory Results - last 48 hr 03/16/22 03/16/22 03/16/22 19:05 19:24 19:24 WBC 6.4 RBC 4.73 Hgb 13.4 Hct 42.2 MCV 89.2 MCH 28.3 MCHC 31.8 RDW 13.2 Plt Count 209 D MPV 11.5 Immature Gran % (Auto) 0.3 Neut % (Auto) 70.2 Lymph % (Auto) 23.0 [place] % (Auto) 4.6 Eos % (Auto) 1.4 Baso % (Auto) 0.5 Lymph # (Auto) 1.5 [place] # (Auto) 0.3 Eos # (Auto) 0.1 Baso # (Auto) 0.0 Abs Immat Gran (auto) 0.02 Absolute Neuts (auto) 4.5 Absolute Nucleated RBC 0.000 Nucleated RBC % (auto) 0.0 Sodium 143 Potassium 4.6 D Chloride 108 Carbon Dioxide 26 Anion Gap 14 BUN 6 L D Creatinine 0.71 Estim Creat Clear Calc 120.0 Estimated GFR > 60 Random Glucose 88 Estimat Average Glucose Hemoglobin A1c % Calcium 9.6 Magnesium 2.1 Total Bilirubin 0.3 AST 21 D ALT 18 Alkaline Phosphatase 110 Total Protein 6.8 Albumin 4.3 Triglycerides Cholesterol LDL Cholesterol, Calc HDL Cholesterol Vitamin B12 Folate TSH Free T4 Urine Color Urine Appearance Urine pH Ur Specific [place] Urine Protein Urine Glucose (UA) Urine Ketones Urine Blood Urine Nitrite Ur Leukocyte Esterase Urine Test Salicylates Urine Opiates Screen Urine Fentanyl Screen Acetaminophen Ur Barbiturates Screen Ur Phencyclidine Scrn Ur Amphetamines Screen U Benzodiazepines Scrn [place] Urine Cocaine Screen U Marijuana (THC) Screen Ethyl Alcohol 84 COVID-19 (SHAD) Negative COVID-19 Clin Com See Note 03/16/22 03/16/22 03/16/22 19:24 19:24 19:32 WBC RBC Hgb Hct MCV MCH MCHC RDW Plt Count MPV Immature Gran % (Auto) Neut % (Auto) Lymph % (Auto) [place] % (Auto) Eos % (Auto) Baso % (Auto) Lymph # (Auto) [place] # (Auto) Eos # (Auto) Baso # (Auto) Abs Immat Gran (auto) Absolute Neuts (auto) Absolute Nucleated RBC Nucleated RBC % (auto) Sodium Potassium Chloride Carbon Dioxide Anion Gap BUN Creatinine Estim Creat Clear Calc Estimated GFR Random Glucose Estimat Average Glucose Hemoglobin A1c % Calcium Magnesium Total Bilirubin AST ALT Alkaline Phosphatase Total Protein Albumin Triglycerides Cholesterol LDL Cholesterol, Calc HDL Cholesterol Vitamin B12 Folate TSH Free T4 Urine Color Urine Appearance Urine pH Ur Specific [place] Urine Protein Urine Glucose (UA) Urine Ketones Urine Blood Urine Nitrite Ur Leukocyte Esterase Urine Test NEGATIVE Salicylates < 5.0 L Urine Opiates Screen Urine Fentanyl Screen Acetaminophen < 1 Ur Barbiturates Screen Ur Phencyclidine Scrn Ur Amphetamines Screen U Benzodiazepines Scrn [place] 0.66 Urine Cocaine Screen U Marijuana (THC) Screen Ethyl Alcohol COVID-19 (SHAD) COVID-19 [employer] Com 03/16/22 03/16/22 03/17/22 19:32 19:33 08:50 WBC RBC Hgb Hct MCV MCH MCHC RDW Plt Count MPV Immature Gran % (Auto) Neut % (Auto) Lymph % (Auto) [place] % (Auto) Eos % (Auto) Baso % (Auto) Lymph # (Auto) [place] # (Auto) Eos # (Auto) Baso # (Auto) Abs Immat Gran (auto) Absolute Neuts (auto) Absolute Nucleated RBC Nucleated RBC % (auto) Sodium Potassium Chloride Carbon Dioxide Anion Gap BUN Creatinine Estim Creat Clear Calc Estimated GFR Random Glucose Estimat Average Glucose 88 Hemoglobin A1c % 4.7 Calcium Magnesium Total Bilirubin AST ALT Alkaline Phosphatase Total Protein Albumin Triglycerides Cholesterol LDL Cholesterol, Calc HDL Cholesterol Vitamin B12 Folate TSH Free T4 Urine Color Yellow Urine Appearance Clear Urine pH 7.0 Ur Specific [place] 1.010 Urine Protein Negative Urine Glucose (UA) Negative Urine Ketones Trace Urine Blood Negative Urine Nitrite Negative Ur Leukocyte Esterase Negative Urine Test Salicylates Urine Opiates Screen POSITIVE H Urine Fentanyl Screen Not Detected Acetaminophen Ur Barbiturates Screen Not Detected Ur Phencyclidine Scrn Not Detected Ur Amphetamines Screen Not Detected U Benzodiazepines Scrn Not Detected [place] Urine Cocaine Screen Not Detected U Marijuana (THC) Screen Not Detected Ethyl Alcohol COVID-19 (SHAD) COVID-19 [employer] Com 03/17/22 03/17/22 08:50 08:50 WBC RBC Hgb Hct MCV MCH MCHC RDW Plt Count MPV Immature Gran % (Auto) Neut % (Auto) Lymph % (Auto) [place] % (Auto) Eos % (Auto) Baso % (Auto) Lymph # (Auto) [place] # (Auto) Eos # (Auto) Baso # (Auto) Abs Immat Gran (auto) Absolute Neuts (auto) Absolute Nucleated RBC Nucleated RBC % (auto) Sodium Potassium Chloride Carbon Dioxide Anion Gap BUN Creatinine Estim Creat Clear Calc Estimated GFR Random Glucose Estimat Average Glucose Hemoglobin A1c % Calcium Magnesium 2.1 Total Bilirubin AST ALT Alkaline Phosphatase Total Protein Albumin Triglycerides 73 Cholesterol 156 LDL Cholesterol, Calc 92 HDL Cholesterol 50 Vitamin B12 690 Folate 17.1 TSH 1.52 Free T4 0.95 Urine Color Urine Appearance Urine pH Ur Specific [place] Urine Protein Urine Glucose (UA) Urine Ketones Urine Blood Urine Nitrite Ur Leukocyte Esterase Urine Test Salicylates Urine Opiates Screen Urine Fentanyl Screen Acetaminophen Ur Barbiturates Screen Ur Phencyclidine Scrn Ur Amphetamines Screen U Benzodiazepines Scrn [place] Urine Cocaine Screen U Marijuana (THC) Screen Ethyl Alcohol COVID-19 (SHAD) COVID-19 Clin Com Medications Medications Current Medications Acetaminophen/Codeine Phosphate (Acetaminophen With Codeine # 3 Tablet) 1 tab PO Q8H PRN PRN Reason: renal calculi pain Last Admin: 03/18/22 10:06 Dose: 1 tab Al Hydroxide/Mg Hydroxide (Magnesium Hydrox/Alum Hydrox 30 Ml Oral.Susp) 30 ml PO Q6H PRN PRN Reason: Heartburn/Nausea Albuterol Sulfate (Albuterol Sulfate 90 Mcg 8 Gm Inhaler) 2 puff INHALE Q6H [facility] Last Admin: 03/18/22 09:59 Dose: Not Given Fluticasone Propionate (Fluticasone Propionate 100 Mcg Blst.W.Dev) 2 puff INHALE RBID [facility] Last Admin: 03/18/22 09:59 Dose: 2 puff Gabapentin (Gabapentin 300 Mg Capsule) 300 mg PO BID [facility] Last Admin: 03/18/22 08:59 Dose: 300 mg Hydroxyzine HCl (Hydroxyzine Hcl 25 Mg Tablet) 25 mg PO BEDTIME [facility] Last Admin: 03/17/22 21:24 Dose: 25 mg Lamotrigine (Lamotrigine 25 Mg Tablet) 75 mg PO BEDTIME [facility] Last Admin: 03/17/22 21:25 Dose: 75 mg [place] Carbonate ([place] Carbonate Er 450 Mg Tablet.Er) 450 mg PO BID [facility] Last Admin: 03/18/22 09:00 Dose: 450 mg Lorazepam (Lorazepam 1 Mg Tablet) 1 mg PO BID PRN PRN Reason: Alcohol Withdrawal Last Admin: 03/17/22 21:34 Dose: 1 mg Lurasidone HCl (Lurasidone Hcl 40 Mg Tablet) 40 mg PO BEDTIME [facility] Last Admin: 03/17/22 23:32 Dose: Not Given Magnesium Hydroxide (Milk Of Magnesia 30 Ml Oral.Susp) 30 ml PO DAILY PRN PRN Reason: Constipation Nitrofurantoin Macrocrystals (Nitrofurantoin Monohyd/M-Cryst 100 Mg Capsule) 100 mg PO BID [facility] Last Admin: 03/18/22 10:02 Dose: 100 mg Non-Formulary Medication (Ubrogepant [Ubrelvy]) 1 tab PO DAILY PRN PRN Reason: Migraine Headache Pharmacy Consult (Consult Rx Perform Med Rec) 1 each MISCELLANE ONCE PRN PRN Reason: Consult order Allergies Allergies Allergy/AdvReac Type Severity Reaction Status Date / Time latex [LATEX] Allergy Unknown Swelling Verified 11/23/21 16:05 sulfamethoxazole Allergy Unknown Rash Verified 11/23/21 16:05 [From BACTRIM] trazodone [TRAZODONE] Allergy Unknown Insomnia Verified 11/23/21 16:05 trimethoprim [From BACTRIM] Allergy Unknown Rash Verified 11/23/21 16:05 CHOCOLATE Allergy Unknown Migraine Uncoded 11/23/21 16:05 From FLONASE Allergy Unknown Migraine Uncoded 11/23/21 16:05 Assessment & Plan Assessment & Plan (1) Mixed bipolar disorder: Status: Acute Code(s): F31.60 - Bipolar disorder, current episode mixed, unspecified (2) Alcohol use disorder, moderate, dependence: Status: Acute Code(s): F10.20 - Alcohol dependence, uncomplicated (3) Chronic post-traumatic stress disorder (PTSD): Status: Acute Code(s): F43.12 - Post-traumatic stress disorder, chronic Plan 36 yo female, presents to her out patient psychiatrists office after drinking wine reporting an increase in depression with SI. Pt reports she has been struggling for several months-Gastric bypass September 2021 with questionable changes in her absorption of medications and efficacy-pt believes this is a definite. Recent elaine with med changes and rapid cycling into a depressed state. Several stressors she is managing and recently discussed with her OP team that she has been drinking alcohol during the pandemic to cope and has increased her use with her meds which also may have effects on efficacy. Pt reports manic sx ~30+ days, and feeling as if she is crashing now. Plan: Continue current med plan from out pt providers Allow alcohol to diminish in her system. Monitor for possible withdrawal. and ongoing diagnostics Re-establish bariatric regime of supplementation (call made to their service for supplies) Collateral contact with OP team for possible new trials Team is looking at assisting pt for mortgage assistance 03/18/22: Continue current regime Lorazepam tapering Declines addiction consult for recovery support- It is not a problem My mood is the problem Will review literature on options (non benzo) for anxiety I spent minutes with the patient and/or on the patient floor today, greater than?50% of which was spent counseling/coordinating care. Patient educated on: medication risk/benefits, substance abuse and therapeutic strategies Informed Consent: understands and further education needed Reason for contiued inpatient stay Substantial Risk for: harm to self, inability to function and rapid decompensation
[2022-03-18] MEDS: LORazepam 1 MG TABLET PO (12:12)
[2022-03-18 18:45] VITALS: BP 123/59; PULSE 71; RESP 16; TEMP 37.1; O2SAT 99
[2022-03-18] MEDS: Lurasidone HCl 20 MG TABLET 60 MG PO (21:54)
[2022-03-18] MEDS: hydrOXYzine HCL 25 MG TABLET PO (21:56)
[2022-03-18] MEDS: lamoTRIgine 25 MG TABLET 75 MG PO (21:57)
[2022-03-19] MEDS: Gabapentin 300 MG CAPSULE PO (09:28)
[2022-03-19] MEDS: Nitrofurantoin Monohyd/M-Cryst 100 MG CAPSULE PO ×2 (09:28→21:37)
[2022-03-19] MEDS: Lithium Carbonate ER 450 MG TABLET.ER PO ×2 (09:28→22:03)
[2022-03-19 09:36] VITALS: BP 125/76; PULSE 61; RESP 16; TEMP 36.9; O2SAT 99
[2022-03-19] MEDS: Fluticasone Propionate 100 MCG BLST.W.DEV 2 PUFF INHALE ×2 (10:01→21:49)
--- NOTE | 2022-03-19 14:57 | PC.NURSE ---
pt reports eing due for migraine injection on Tuesday03/22/22 Provider is aware Pt will also be contacting to have him bring in bariatric vitamins the pt is suppose to take daily.
[2022-03-19 18:00] VITALS: BP 115/56; PULSE 70; RESP 18; TEMP 37.3; O2SAT 98
--- NOTE | 2022-03-19 18:15 | P.PNPSI_ITS ---
Subjective Subjective Date of Service: 03/19/22 Reason For Visit: Bipolar Disorder Subjective Notes: Conditional Voluntary Healthcare Proxy: No Guardianship: No Medical Problems Affecting Mental Status: No Interim History: Bariatric vitamins secured for pt-MVI and Calcium Migraine meds ordered for 03/22 from [place] Review of non benzo options for anxiety, pt given handouts It appears antihypertensives may be a risk-hx of childhood asthma, now only exercise induced with ~1 attack per week and some precipitous attacks when there are sharp changes in temperature. Reviewed for consideration-would need pulmonary input. Reviewed Gabapentin increase, hydroxyzine(not helpful by hx), mirtazapine (risks of weight gain and inducing elaine), Valproate- reports she will not be having any more children, Trileptal, Vraylar. Reports poor sleep, recovering from renal calculi-depression 08/25; anxiety 01/25, ongoing thoughts of self harm. Reports she would prefer a benzodiazepine and assures this ghost writer she is not addicted (will discuss with Dr. Ford Dye). Tremor is not existant when we met today. Medication Compliance: Yes Side effects from medications: No Attending Groups: Intermittent Review of Systems Acute medical concerns: No Medical Review of Systems: unchanged Mental Status Exam Mental Status Exam Patient Appearance: Fatigued Patient Orientation: Person, Place, Time and Situation Level of Consciousness: Alert Patient Behavior: Talkative, Cooperative, Anxious, Fatigued, Distractible and Good Eye Contact Mood Description: Depressed Affect Description: Labile Patient Cognition Impaired: No Ability to Follow Directions: Good Speech Pattern: Spontaneous Speech and Pressured Memory Description: Intact Hallucinations: None Delusions: Not Present Perceptual Disturbances: Depersonalization Thought Process: Distracted and Rumination Thought Content: positive for Circumstantial, positive for Perseveration and positive for Suicidal Ideation Depressive Symptoms: Increased Anxiety, Difficulty Sleeping, Hopelessness, Feelings of Guilt, Unhappiness, Thoughts of /Suicide, Low Self Esteem, Loss of Energy and Difficulty Concentrating Judgement: Fair Diagnostics Vital Signs (24Hr): Vital Signs - 24 hr 03/18/22 18:45 03/19/22 09:36 Temperature 98.7 F 98.5 F Pulse Rate 71 61 Respiratory Rate 16 16 Blood Pressure 123/59 L 125/76 Pulse Oximetry 99 99 Oxygen Delivery Method Room Air Room Air BMI result Body Mass Index 32.8 Labs Results: 03/16/22 19:24 03/16/22 19:24 Medications Medications Current Medications Acetaminophen/Codeine Phosphate (Acetaminophen With Codeine # 3 Tablet) 1 tab PO Q8H PRN PRN Reason: renal calculi pain Last Admin: 03/19/22 13:24 Dose: 1 tab Al Hydroxide/Mg Hydroxide (Magnesium Hydrox/Alum Hydrox 30 Ml Oral.Susp) 30 ml PO Q6H PRN PRN Reason: Heartburn/Nausea Albuterol Sulfate (Albuterol Sulfate 90 Mcg 8 Gm Inhaler) 2 puff INHALE Q6H PRN PRN Reason: wheeze Fluticasone Propionate (Fluticasone Propionate 100 Mcg Blst.W.Dev) 2 puff INHALE RBID [facility] Last Admin: 03/19/22 10:01 Dose: 2 puff Gabapentin (Gabapentin 300 Mg Capsule) 600 mg PO BID [facility] Hydroxyzine HCl (Hydroxyzine Hcl 25 Mg Tablet) 25 mg PO BEDTIME [facility] Last Admin: 03/18/22 21:56 Dose: 25 mg Lamotrigine (Lamotrigine 25 Mg Tablet) 75 mg PO BEDTIME [facility] Last Admin: 03/18/22 21:57 Dose: 75 mg [place] Carbonate ([place] Carbonate Er 450 Mg Tablet.Er) 450 mg PO BID [facility] Last Admin: 03/19/22 09:28 Dose: 450 mg Lorazepam (Lorazepam 0.5 Mg Tablet) 0.5 mg PO BID PRN PRN Reason: Alcohol Withdrawal Lurasidone HCl (Lurasidone Hcl 20 Mg Tablet) 60 mg PO BEDTIME [facility] Last Admin: 03/18/22 21:54 Dose: 60 mg Magnesium Hydroxide (Milk Of Magnesia 30 Ml Oral.Susp) 30 ml PO DAILY PRN PRN Reason: Constipation Nitrofurantoin Macrocrystals (Nitrofurantoin Monohyd/M-Cryst 100 Mg Capsule) 100 mg PO BID [facility] Last Admin: 03/19/22 09:28 Dose: 100 mg Non-Formulary Medication (Ubrogepant [Ubrelvy]) 1 tab PO DAILY PRN PRN Reason: Migraine Headache Pt Own (Celebrate Ca Citrate 500/12.5 1 Tab) 1 tab PO DAILY [facility] Pt Own (Celebrate (One Mvi 1 Tab)) 1 tab PO BEDTIME [facility] Pharmacy Consult (Consult Rx Perform Med Rec) 1 each MISCELLANE ONCE PRN PRN Reason: Consult order Allergies Allergies Allergy/AdvReac Type Severity Reaction Status Date / Time latex [LATEX] Allergy Unknown Swelling Verified 11/23/21 16:05 sulfamethoxazole Allergy Unknown Rash Verified 11/23/21 16:05 [From BACTRIM] trazodone [TRAZODONE] Allergy Unknown Insomnia Verified 11/23/21 16:05 trimethoprim [From BACTRIM] Allergy Unknown Rash Verified 11/23/21 16:05 CHOCOLATE Allergy Unknown Migraine Uncoded 11/23/21 16:05 From FLONASE Allergy Unknown Migraine Uncoded 11/23/21 16:05 Assessment & Plan Assessment & Plan (1) Mixed bipolar disorder: Status: Acute Code(s): F31.60 - Bipolar disorder, current episode mixed, unspecified (2) Alcohol use disorder, moderate, dependence: Status: Acute Code(s): F10.20 - Alcohol dependence, uncomplicated (3) Chronic post-traumatic stress disorder (PTSD): Status: Acute Code(s): F43.12 - Post-traumatic stress disorder, chronic Plan 36 yo female, presents to her out patient psychiatrists office after drinking wine reporting an increase in depression with SI. Pt reports she has been struggling for several months-Gastric bypass September 2021 with questionable changes in her absorption of medications and efficacy-pt believes this is a definite. Recent elaine with med changes and rapid cycling into a depressed state. Several stressors she is managing and recently discussed with her OP team that she has been drinking alcohol during the pandemic to cope and has increased her use with her meds which also may have effects on efficacy. Pt reports manic sx ~30+ days, and feeling as if she is crashing now. Plan: Continue current med plan from out pt providers Allow alcohol to diminish in her system. Monitor for possible withdrawal. and ongoing diagnostics Re-establish bariatric regime of supplementation (call made to their service for supplies) Collateral contact with OP team for possible new trials Team is looking at assisting pt for mortgage assistance 03/18/22: Continue current regime Lorazepam tapering Declines addiction consult for recovery support- It is not a problem My mood is the problem Will review literature on options (non benzo) for anxiety 03/19/22: Increase Gabapentin to 600 mg bid Lorazepam tapering I spent minutes with the patient and/or on the patient floor today, greater than?50% of which was spent counseling/coordinating care. Patient educated on: medication risk/benefits and therapeutic strategies Informed Consent: understands and further education needed Reason for contiued inpatient stay Substantial Risk for: harm to self and rapid decompensation
[2022-03-19] MEDS: hydrOXYzine HCL 25 MG TABLET PO (21:32)
[2022-03-19] MEDS: Gabapentin 300 MG CAPSULE 600 MG PO (21:52)
[2022-03-19] MEDS: Lurasidone HCl 20 MG TABLET 60 MG PO (21:53)
[2022-03-19] MEDS: lamoTRIgine 25 MG TABLET 75 MG PO (21:53)
--- NOTE | 2022-03-20 07:32 | HO.PSYCHPN ---
Subjective Subjective Date of Service: 03/20/22 Reason For Visit: Bipolar Disorder Subjective Notes: Conditional Voluntary Healthcare Proxy: No Guardianship: No Medical Problems Affecting Mental Status: No Review of Systems recent kidney stone Review of Systems: feeling restless, pacing maria, and kidney stoned passed Mental Status Exam Mental Status Exam Patient Appearance: Well Grooomed Patient Orientation: Person, Place, Time and Situation Level of Consciousness: Awake Patient Behavior: Appropriate, Hyperactive, Distractible and Impulsive Mood Description: Nervous Affect Description: Labile (mildly) Patient Cognition Impaired: No Ability to Follow Directions: Good Speech Pattern: Clear Memory Description: Intact Hallucinations: None Delusions: Not Present Thought Process: Racing Thought Content: positive for Goal Oriented Depressive Symptoms: Increased Anxiety, Diff. Making Decisions, Muscle Tension, Difficulty Sleeping, Feelings of Guilt and Difficulty Concentrating Abnormal Motor Activity Signs and Symptoms: Hyperactivity Judgement: Good Diagnostics Vital Signs (24Hr): Vital Signs - 24 hr 03/19/22 09:36 03/19/22 18:00 Temperature 98.5 F 99.1 F Pulse Rate 61 70 Respiratory Rate 16 18 Blood Pressure 125/76 115/56 L Pulse Oximetry 99 98 Oxygen Delivery Method Room Air Room Air BMI result Body Mass Index 32.8 Labs Results: 03/16/22 19:24 03/16/22 19:24 Medications Medications Current Medications Acetaminophen/Codeine Phosphate (Acetaminophen With Codeine # 3 Tablet) 1 tab PO Q8H PRN PRN Reason: renal calculi pain Last Admin: 03/20/22 05:35 Dose: 1 tab Al Hydroxide/Mg Hydroxide (Magnesium Hydrox/Alum Hydrox 30 Ml Oral.Susp) 30 ml PO Q6H PRN PRN Reason: Heartburn/Nausea Albuterol Sulfate (Albuterol Sulfate 90 Mcg 8 Gm Inhaler) 2 puff INHALE Q6H PRN PRN Reason: wheeze Fluticasone Propionate (Fluticasone Propionate 100 Mcg Blst.W.Dev) 2 puff INHALE RBID [facility] Last Admin: 03/19/22 21:49 Dose: 2 puff Gabapentin (Gabapentin 300 Mg Capsule) 600 mg PO BID [facility] Last Admin: 03/19/22 21:52 Dose: 600 mg Hydroxyzine HCl (Hydroxyzine Hcl 25 Mg Tablet) 25 mg PO BEDTIME [facility] Last Admin: 03/19/22 21:32 Dose: 25 mg Lamotrigine (Lamotrigine 25 Mg Tablet) 75 mg PO BEDTIME [facility] Last Admin: 03/19/22 21:53 Dose: 75 mg [place] Carbonate ([place] Carbonate Er 450 Mg Tablet.Er) 450 mg PO BID [facility] Last Admin: 03/19/22 22:03 Dose: 450 mg Lorazepam (Lorazepam 0.5 Mg Tablet) 0.5 mg PO DAILY PRN PRN Reason: Alcohol Withdrawal Lurasidone HCl (Lurasidone Hcl 20 Mg Tablet) 60 mg PO BEDTIME [facility] Last Admin: 03/19/22 21:53 Dose: 60 mg Magnesium Hydroxide (Milk Of Magnesia 30 Ml Oral.Susp) 30 ml PO DAILY PRN PRN Reason: Constipation Nitrofurantoin Macrocrystals (Nitrofurantoin Monohyd/M-Cryst 100 Mg Capsule) 100 mg PO BID [facility] Last Admin: 03/19/22 21:37 Dose: 100 mg Non-Formulary Medication (Ubrogepant [Ubrelvy]) 1 tab PO DAILY PRN PRN Reason: Migraine Headache Pt Own (Celebrate Ca Citrate 500/12.5 1 Tab) 1 tab PO DAILY [facility] Pt Own (Celebrate (One Mvi 1 Tab)) 1 tab PO BEDTIME [facility] Last Admin: 03/19/22 21:51 Dose: 1 tab Pharmacy Consult (Consult Rx Perform Med Rec) 1 each MISCELLANE ONCE PRN PRN Reason: Consult order Allergies Allergies Allergy/AdvReac Type Severity Reaction Status Date / Time latex [LATEX] Allergy Unknown Swelling Verified 11/23/21 16:05 sulfamethoxazole Allergy Unknown Rash Verified 11/23/21 16:05 [From BACTRIM] trazodone [TRAZODONE] Allergy Unknown Insomnia Verified 11/23/21 16:05 trimethoprim [From BACTRIM] Allergy Unknown Rash Verified 11/23/21 16:05 CHOCOLATE Allergy Unknown Migraine Uncoded 11/23/21 16:05 From FLONASE Allergy Unknown Migraine Uncoded 11/23/21 16:05 Assessment & Plan Assessment & Plan (1) Mixed bipolar disorder: Status: Acute Code(s): F31.60 - Bipolar disorder, current episode mixed, unspecified Assessment and Plan: anxious and manic- mixed (2) Alcohol use disorder, moderate, dependence: Status: Acute Code(s): F10.20 - Alcohol dependence, uncomplicated Assessment and Plan: didn't require detox was not dependent (3) Chronic post-traumatic stress disorder (PTSD): Status: Acute Code(s): F43.12 - Post-traumatic stress disorder, chronic Assessment and Plan: no change Plan 36 yo female, presents to her out patient psychiatrists office after drinking wine reporting an increase in depression with SI. Pt reports she has been struggling for several months-Gastric bypass September 2021 with questionable changes in her absorption of medications and efficacy-pt believes this is a definite. Recent elaine with med changes and rapid cycling into a depressed state. Several stressors she is managing and recently discussed with her OP team that she has been drinking alcohol during the pandemic to cope and has increased her use with her meds which also may have effects on efficacy. Pt reports manic sx ~30+ days, and feeling as if she is crashing now. Plan: Continue current med plan from out pt providers Allow alcohol to diminish in her system. Monitor for possible withdrawal. and ongoing diagnostics Re-establish bariatric regime of supplementation (call made to their service for supplies) Collateral contact with OP team for possible new trials Team is looking at assisting pt for mortgage assistance 03/18/22: Continue current regime Lorazepam tapering Declines addiction consult for recovery support- It is not a problem My mood is the problem Will review literature on options (non benzo) for anxiety 03/19/22: Increase Gabapentin to 600 mg bid Lorazepam tapering 03/20= pt well known to this provider as I am outpatient psychiatrist for patient- we discussed lowering lithium due to tremor ( which has been made worse in past by in latuda to 60mg) I spent minutes with the patient and/or on the patient floor today, greater than?50% of which was spent counseling/coordinating care. Patient educated on: medication risk/benefits and substance abuse Informed Consent: understands Reason for contiued inpatient stay Substantial Risk for: harm to self and rapid decompensation
[2022-03-20] MEDS: Fluticasone Propionate 100 MCG BLST.W.DEV 2 PUFF INHALE ×2 (09:35→20:51)
[2022-03-20] MEDS: Nitrofurantoin Monohyd/M-Cryst 100 MG CAPSULE PO ×2 (09:36→20:49)
[2022-03-20] MEDS: Lithium Carbonate ER 450 MG TABLET.ER PO (09:36)
[2022-03-20] MEDS: Gabapentin 300 MG CAPSULE 600 MG PO (09:36)
[2022-03-20 09:41] VITALS: BP 124/57; PULSE 66; RESP 18; TEMP 36.6; O2SAT 99
[2022-03-20 15:30] VITALS: BP 128/67; PULSE 52; RESP 16; TEMP 36.5; O2SAT 100
--- NOTE | 2022-03-20 16:28 | PC.NURSE ---
Pt. brought in Aimovig, a once monthly injectable medication. This financial underwriter brought it to pharmacy who stated that we are unable to administer to pt., and they will hold it until discharge. This financial underwriter to provide this information to next shift so that next business day shift can communicate this to provider.
[2022-03-20] MEDS: lamoTRIgine 25 MG TABLET 75 MG PO (20:48)
[2022-03-20] MEDS: hydrOXYzine HCL 25 MG TABLET PO (20:49)
[2022-03-20] MEDS: Lurasidone HCl 20 MG TABLET 60 MG PO (20:49)
[2022-03-20] MEDS: Lithium Carbonate ER 300 MG TABLET.ER PO (20:49)
[2022-03-20] MEDS: Gabapentin 400 MG CAPSULE 800 MG PO (20:49)
[2022-03-21] MEDS: Fluticasone Propionate 100 MCG BLST.W.DEV 2 PUFF INHALE ×2 (08:09→20:32)
[2022-03-21] MEDS: Lithium Carbonate ER 300 MG TABLET.ER PO ×2 (08:10→20:27)
[2022-03-21] MEDS: Gabapentin 400 MG CAPSULE 800 MG PO (08:10)
[2022-03-21 08:14] VITALS: BP 118/62; RESP 18; O2SAT 99
--- NOTE | 2022-03-21 09:41 | P.PNPSI_ITS ---
Subjective Subjective Date of Service: 03/21/22 Reason For Visit: Bipolar Disorder Subjective Notes: Conditional Voluntary Healthcare Proxy: No Guardianship: No Medical Problems Affecting Mental Status: No Interim History: Pt feeling calmer and less anxious with med change- still pacing halls and had 11k steps by 10am Medication Compliance: Yes Side effects from medications: No Attending Groups: Intermittent (suggested she go and get coping skills- or atleast practice them) Review of Systems Acute medical concerns: No kideny stoned past, dc abiotics Medical Review of Systems: unchanged Mental Status Exam Mental Status Exam Patient Appearance: Well Grooomed Patient Orientation: Person, Place, Time and Situation Level of Consciousness: Awake Patient Behavior: Appropriate, Hyperactive, Distractible and Impulsive Mood Description: Nervous Affect Description: Labile (mildly) Patient Cognition Impaired: No Ability to Follow Directions: Good Speech Pattern: Clear Memory Description: Intact Hallucinations: None Delusions: Not Present Thought Process: Racing Thought Content: positive for Goal Oriented Depressive Symptoms: Increased Anxiety, Diff. Making Decisions, Muscle Tension, Difficulty Sleeping, Feelings of Guilt and Difficulty Concentrating Abnormal Motor Activity Signs and Symptoms: Hyperactivity Judgement: Good Diagnostics Vital Signs (24Hr): Vital Signs - 24 hr 03/20/22 15:30 03/21/22 08:14 Temperature 97.7 F Pulse Rate 52 Respiratory Rate 16 18 Blood Pressure 128/67 118/62 Pulse Oximetry 100 99 Oxygen Delivery Method Room Air Room Air BMI result Body Mass Index 32.8 Labs Results: 03/16/22 19:24 03/16/22 19:24 Medications Medications Current Medications Acetaminophen/Codeine Phosphate (Acetaminophen With Codeine # 3 Tablet) 1 tab PO Q8H PRN PRN Reason: renal calculi pain Last Admin: 03/20/22 05:35 Dose: 1 tab Al Hydroxide/Mg Hydroxide (Magnesium Hydrox/Alum Hydrox 30 Ml Oral.Susp) 30 ml PO Q6H PRN PRN Reason: Heartburn/Nausea Albuterol Sulfate (Albuterol Sulfate 90 Mcg 8 Gm Inhaler) 2 puff INHALE Q6H PRN PRN Reason: wheeze Fluticasone Propionate (Fluticasone Propionate 100 Mcg Blst.W.Dev) 2 puff INHALE RBID [facility] Last Admin: 03/21/22 08:09 Dose: 2 puff Gabapentin (Gabapentin 400 Mg Capsule) 800 mg PO BID [facility] Last Admin: 03/21/22 08:10 Dose: 800 mg Hydroxyzine HCl (Hydroxyzine Hcl 25 Mg Tablet) 25 mg PO BEDTIME [facility] Last Admin: 03/20/22 20:49 Dose: 25 mg Lamotrigine (Lamotrigine 25 Mg Tablet) 75 mg PO BEDTIME [facility] Last Admin: 03/20/22 20:48 Dose: 75 mg [place] Carbonate ([place] Carbonate Er 300 Mg Tablet.Er) 300 mg PO BID [facility] Last Admin: 03/21/22 08:10 Dose: 300 mg Lorazepam (Lorazepam 0.5 Mg Tablet) 0.5 mg PO DAILY PRN PRN Reason: Alcohol Withdrawal Lurasidone HCl (Lurasidone Hcl 20 Mg Tablet) 60 mg PO BEDTIME [facility] Last Admin: 03/20/22 20:49 Dose: 60 mg Magnesium Hydroxide (Milk Of Magnesia 30 Ml Oral.Susp) 30 ml PO DAILY PRN PRN Reason: Constipation Nitrofurantoin Macrocrystals (Nitrofurantoin Monohyd/M-Cryst 100 Mg Capsule) 100 mg PO BID [facility] Last Admin: 03/20/22 20:49 Dose: 100 mg Pt Own (Ubrogepant [ Ubrelvy] 50 Mg Tablet) 1 tab PO DAILY PRN PRN Reason: Migraine Headache Pt Own (Celebrate Ca Citrate 500/12.5 1 Tab) 1 tab PO DAILY [facility] Last Admin: 03/21/22 08:09 Dose: 1 tab Pt Own (Celebrate (One Mvi 1 Tab)) 1 tab PO BEDTIME [facility] Last Admin: 03/20/22 20:50 Dose: 1 tab Pharmacy Consult (Consult Rx Perform Med Rec) 1 each MISCELLANE ONCE PRN PRN Reason: Consult order Allergies Allergies Allergy/AdvReac Type Severity Reaction Status Date / Time latex [LATEX] Allergy Unknown Swelling Verified 11/23/21 16:05 sulfamethoxazole Allergy Unknown Rash Verified 11/23/21 16:05 [From BACTRIM] trazodone [TRAZODONE] Allergy Unknown Insomnia Verified 11/23/21 16:05 trimethoprim [From BACTRIM] Allergy Unknown Rash Verified 11/23/21 16:05 CHOCOLATE Allergy Unknown Migraine Uncoded 11/23/21 16:05 From FLONASE Allergy Unknown Migraine Uncoded 11/23/21 16:05 Assessment & Plan Assessment & Plan (1) Mixed bipolar disorder: Status: Acute Code(s): F31.60 - Bipolar disorder, current episode mixed, unspecified Assessment and Plan: anxious and manic- mixed responding to inc gabapentin- tolerating latuda 60mg, lower lithium- restart melatonin for sleep raise gabapentin at bed (2) Alcohol use disorder, moderate, dependence: Status: Acute Code(s): F10.20 - Alcohol dependence, uncomplicated Assessment and Plan: didn't require detox was not dependent (3) Chronic post-traumatic stress disorder (PTSD): Status: Acute Code(s): F43.12 - Post-traumatic stress disorder, chronic Assessment and Plan: no change Plan 36 yo female, presents to her out patient psychiatrists office after drinking wine reporting an increase in depression with SI. Pt reports she has been struggling for several months-Gastric bypass September 2021 with questionable changes in her absorption of medications and efficacy-pt believes this is a definite. Recent elaine with med changes and rapid cycling into a depressed state. Several stressors she is managing and recently discussed with her OP team that she has been drinking alcohol during the pandemic to cope and has increased her use with her meds which also may have effects on efficacy. Pt reports manic sx ~30+ days, and feeling as if she is crashing now. Plan: Continue current med plan from out pt providers Allow alcohol to diminish in her system. Monitor for possible withdrawal. and ongoing diagnostics Re-establish bariatric regime of supplementation (call made to their service for supplies) Collateral contact with OP team for possible new trials Team is looking at assisting pt for mortgage assistance 03/18/22: Continue current regime Lorazepam tapering Declines addiction consult for recovery support- It is not a problem My mood is the problem Will review literature on options (non benzo) for anxiety 03/19/22: Increase Gabapentin to 600 mg bid Lorazepam tapering 03/20= pt well known to this provider as I am outpatient psychiatrist for patient- we discussed lowering lithium due to tremor ( which has been made worse in past by in latuda to 60mg) I spent minutes with the patient and/or on the patient floor today, greater than?50% of which was spent counseling/coordinating care. Patient educated on: medication risk/benefits and therapeutic strategies Informed Consent: understands Reason for contiued inpatient stay Substantial Risk for: harm to self and rapid decompensation
[2022-03-21 18:35] VITALS: BP 125/65; PULSE 67; RESP 16; TEMP 37.2; O2SAT 100
[2022-03-21] MEDS: Lurasidone HCl 20 MG TABLET 60 MG PO (20:26)
[2022-03-21] MEDS: Gabapentin 300 MG CAPSULE 900 MG PO (20:27)
[2022-03-21] MEDS: lamoTRIgine 25 MG TABLET 75 MG PO (20:27)
[2022-03-21] MEDS: Melatonin 3 MG TABLET 6 MG PO ×2 (20:27→20:33)
[2022-03-21] MEDS: hydrOXYzine HCL 25 MG TABLET PO (20:32)
[2022-03-22 06:00] VITALS: BP 122/71; PULSE 66; RESP 18
[2022-03-22] MEDS: Gabapentin 400 MG CAPSULE 800 MG PO (08:05)
[2022-03-22] MEDS: Lithium Carbonate ER 300 MG TABLET.ER PO ×2 (08:05→19:31)
[2022-03-22] MEDS: Fluticasone Propionate 100 MCG BLST.W.DEV 2 PUFF INHALE ×2 (08:06→19:29)
[2022-03-22 16:52] VITALS: BP 112/56; PULSE 61; RESP 18; TEMP 36.6; O2SAT 99
--- NOTE | 2022-03-22 17:37 | HO.PSYCHPN ---
Subjective Subjective Date of Service: 03/22/22 Reason For Visit: Bipolar Disorder Subjective Notes: Conditional Voluntary Healthcare Proxy: No Guardianship: No Medical Problems Affecting Mental Status: No Interim History: I think I am ready to go home Discussed discharge-no SI, HI, sx of depression. Reports will be attending a seminar for his work this week and mother in law will provide early childhood education coordinator, however, the children will miss 3 days of school. Pt would like to return to the family so the children's structure will not be interrupted but she will have some assistance and companionship in their care as she re-enters the home. Also worries about mother in law's health so she would like to be available. Dr. Ford Dye consulted, who saw pt over the weekend and who approves of discharge. Aimovig ordered from [facility]-this will arrive 03/23 (dosing due 03/22) Discharge 03/23. Medication Compliance: Yes Side effects from medications: No Attending Groups: Intermittent Review of Systems Acute medical concerns: No Medical Review of Systems: unchanged Mental Status Exam Mental Status Exam Patient Appearance: Appropriate Patient Orientation: Person, Place, Time and Situation Level of Consciousness: Alert Patient Behavior: Appropriate, Talkative, Cooperative and Good Eye Contact Mood Description: Calm Affect Description: Calm Patient Cognition Impaired: No Ability to Follow Directions: Good Speech Pattern: Spontaneous Speech Memory Description: Intact Hallucinations: None Delusions: Not Present Thought Process: Intact Thought Content: positive for Intact Judgement: Good Diagnostics Vital Signs (24Hr): Vital Signs - 24 hr 03/21/22 18:35 03/22/22 06:00 03/22/22 16:52 Temperature 98.9 F 97.9 F Pulse Rate 67 66 61 Respiratory Rate 16 18 18 Blood Pressure 125/65 122/71 112/56 L Pulse Oximetry 100 99 Oxygen Delivery Method Room Air Room Air Room Air BMI result Body Mass Index 32.8 Labs Results: 03/16/22 19:24 03/16/22 19:24 Medications Medications Current Medications Acetaminophen/Codeine Phosphate (Acetaminophen With Codeine # 3 Tablet) 1 tab PO Q8H PRN PRN Reason: renal calculi pain Last Admin: 03/22/22 16:33 Dose: 1 tab Al Hydroxide/Mg Hydroxide (Magnesium Hydrox/Alum Hydrox 30 Ml Oral.Susp) 30 ml PO Q6H PRN PRN Reason: Heartburn/Nausea Albuterol Sulfate (Albuterol Sulfate 90 Mcg 8 Gm Inhaler) 2 puff INHALE Q6H PRN PRN Reason: wheeze Fluticasone Propionate (Fluticasone Propionate 100 Mcg Blst.W.Dev) 2 puff INHALE RBID [facility] Last Admin: 03/22/22 08:06 Dose: 2 puff Gabapentin (Gabapentin 400 Mg Capsule) 800 mg PO DAILY [facility] Last Admin: 03/22/22 08:05 Dose: 800 mg Gabapentin (Gabapentin 300 Mg Capsule) 900 mg PO BEDTIME [facility] Last Admin: 03/21/22 20:27 Dose: 900 mg Hydroxyzine HCl (Hydroxyzine Hcl 25 Mg Tablet) 25 mg PO BEDTIME [facility] Last Admin: 03/21/22 20:32 Dose: 25 mg Lamotrigine (Lamotrigine 25 Mg Tablet) 75 mg PO BEDTIME [facility] Last Admin: 03/21/22 20:27 Dose: 75 mg [place] Carbonate ([place] Carbonate Er 300 Mg Tablet.Er) 300 mg PO BID [facility] Last Admin: 03/22/22 08:05 Dose: 300 mg Lorazepam (Lorazepam 0.5 Mg Tablet) 0.5 mg PO DAILY PRN PRN Reason: Alcohol Withdrawal Lurasidone HCl (Lurasidone Hcl 20 Mg Tablet) 60 mg PO BEDTIME [facility] Last Admin: 03/21/22 20:26 Dose: 60 mg Magnesium Hydroxide (Milk Of Magnesia 30 Ml Oral.Susp) 30 ml PO DAILY PRN PRN Reason: Constipation Melatonin (Melatonin 3 Mg Tablet) 6 mg PO BEDTIME MRX1 [facility] Last Admin: 03/21/22 20:33 Dose: 6 mg Pt Own (Ubrogepant [ Ubrelvy] 50 Mg Tablet) 1 tab PO DAILY PRN PRN Reason: Migraine Headache Last Admin: 03/21/22 10:25 Dose: 1 tab Pt Own (Celebrate Ca Citrate 500/12.5 1 Tab) 1 tab PO DAILY [facility] Last Admin: 03/22/22 08:06 Dose: 1 tab Pt Own (Celebrate (One Mvi 1 Tab)) 1 tab PO BEDTIME [facility] Last Admin: 03/21/22 20:27 Dose: 1 tab Pharmacy Consult (Consult Rx Perform Med Rec) 1 each MISCELLANE ONCE PRN PRN Reason: Consult order Allergies Allergies Allergy/AdvReac Type Severity Reaction Status Date / Time latex [LATEX] Allergy Unknown Swelling Verified 11/23/21 16:05 sulfamethoxazole Allergy Unknown Rash Verified 11/23/21 16:05 [From BACTRIM] trazodone [TRAZODONE] Allergy Unknown Insomnia Verified 11/23/21 16:05 trimethoprim [From BACTRIM] Allergy Unknown Rash Verified 11/23/21 16:05 CHOCOLATE Allergy Unknown Migraine Uncoded 11/23/21 16:05 From FLONASE Allergy Unknown Migraine Uncoded 11/23/21 16:05 Assessment & Plan Assessment & Plan (1) Mixed bipolar disorder: Status: Acute Code(s): F31.60 - Bipolar disorder, current episode mixed, unspecified Assessment and Plan: anxious and manic- mixed responding to inc gabapentin- tolerating latuda 60mg, lower lithium- restart melatonin for sleep raise gabapentin at bed (2) Alcohol use disorder, moderate, dependence: Status: Acute Code(s): F10.20 - Alcohol dependence, uncomplicated Assessment and Plan: didn't require detox was not dependent (3) Chronic post-traumatic stress disorder (PTSD): Status: Acute Code(s): F43.12 - Post-traumatic stress disorder, chronic Assessment and Plan: no change Plan 36 yo female, presents to her out patient psychiatrists office after drinking wine reporting an increase in depression with SI. Pt reports she has been struggling for several months-Gastric bypass September 2021 with questionable changes in her absorption of medications and efficacy-pt believes this is a definite. Recent elaine with med changes and rapid cycling into a depressed state. Several stressors she is managing and recently discussed with her OP team that she has been drinking alcohol during the pandemic to cope and has increased her use with her meds which also may have effects on efficacy. Pt reports manic sx ~30+ days, and feeling as if she is crashing now. Plan: Continue current med plan from out pt providers Allow alcohol to diminish in her system. Monitor for possible withdrawal. and ongoing diagnostics Re-establish bariatric regime of supplementation (call made to their service for supplies) Collateral contact with OP team for possible new trials Team is looking at assisting pt for mortgage assistance 03/18/22: Continue current regime Lorazepam tapering Declines addiction consult for recovery support- It is not a problem My mood is the problem Will review literature on options (non benzo) for anxiety 03/19/22: Increase Gabapentin to 600 mg bid Lorazepam tapering 03/20= pt well known to this provider as I am outpatient psychiatrist for patient- we discussed lowering lithium due to tremor ( which has been made worse in past by in latuda to 60mg) 03/22/22- Discharge 03/23 Aimovig ordered for 03/23/22 from [facility] I spent minutes with the patient and/or on the patient floor today, greater than?50% of which was spent counseling/coordinating care. Patient educated on: therapeutic strategies Informed Consent: understands Reason for contiued inpatient stay Substantial Risk for: rapid decompensation
[2022-03-22] MEDS: Melatonin 3 MG TABLET 6 MG PO (19:30)
[2022-03-22] MEDS: Gabapentin 300 MG CAPSULE 900 MG PO (19:30)
[2022-03-22] MEDS: lamoTRIgine 25 MG TABLET 75 MG PO (19:30)
[2022-03-22] MEDS: hydrOXYzine HCL 25 MG TABLET PO (19:30)
[2022-03-22] MEDS: Lurasidone HCl 20 MG TABLET 60 MG PO (19:31)
[2022-03-23 08:50] VITALS: BP 134/66; PULSE 59; RESP 18; TEMP 36.4; O2SAT 99
[2022-03-23] MEDS: Fluticasone Propionate 100 MCG BLST.W.DEV 2 PUFF INHALE (09:00)
[2022-03-23] MEDS: Gabapentin 400 MG CAPSULE 800 MG PO (09:01)
[2022-03-23] MEDS: Lithium Carbonate ER 300 MG TABLET.ER PO (09:01)
--- NOTE | 2022-03-23 10:56 | PC.NURSE ---
Patient reports she feels ready for discharge, and that the alterations in her medications have been helpful. She reports she is returning home to her [id number], and to be with her children. Patient denies SI/HI, denies AH/VH. Reviewed belongings, medications, and valuables with patient. No concerns reported.
--- NOTE | 2022-04-23 14:56 | P.DS_ITS ---
DS: Providers Provider Date of Service: 03/23/22 Date of admission: 03/16/22 22:30 Date of discharge: 03/23/22 Primary care physician: Marjorie Bower MD Admitting clinician: Marley Grant Attending physician on admission: Morgan Gross Attending physician on discharge: Morgan Gross Discharging clinician: Marley Grant DS: Diagnosis Discharge Diagnosis (1) Mixed bipolar disorder: Status: Acute (2) Alcohol use disorder, moderate, dependence: Status: Resolved (3) Chronic post-traumatic stress disorder (PTSD): Status: Acute DS: Medications Discharge Medications Home Medications: Previous Rx's Medication Instructions Recorded Celebrate Ca Citrate 500/12.5 1 tab PO DAILY ##0 03/22/22 Celebrate One Mvi 1 tab PO BEDTIME ##0 03/22/22 acetaminophen 300 mg-codeine 15 mg 1 tab PO Q6H PRN pain #14 tabs 03/22/22 tablet albuterol sulfate 90 mcg/actuation 2 puff inhalation Q6H #1 inhaler 03/22/22 aerosol inhaler erenumab-aooe 140 mg/mL 140 mg subcut QMONTH #1 mL 03/22/22 subcutaneous auto-injector (Aimovig Autoinjector) fluticasone propionate 110 2 puff inhalation BID #1 inhaler 03/22/22 mcg/actuation HFA aerosol inhaler (Flovent HFA) gabapentin 300 mg capsule 900 mg PO BEDTIME #21 caps 03/22/22 gabapentin 400 mg capsule 800 mg PO DAILY #14 caps 03/22/22 hydroxyzine HCl 25 mg tablet 25 mg PO BEDTIME #7 tabs 03/22/22 lamotrigine 25 mg tablet 75 mg PO BEDTIME #21 tabs 03/22/22 lithium carbonate 300 mg 300 mg PO BID #14 tabs 03/22/22 tablet,extended release lurasidone 60 mg tablet (Latuda) 60 mg PO DAILY #7 tabs 03/22/22 melatonin 3 mg tablet 6 mg PO BEDTIME MRX1 #21 tabs 03/22/22 ubrogepant 50 mg tablet (Ubrelvy) 1 tab PO NEEDED #7 tabs 03/22/22 lurasidone 60 mg tablet (Latuda) 60 mg PO DAILY #7 tabs 03/23/22 Mental Status Exam Mental Status Exam Patient Appearance: Appropriate Patient Orientation: Person, Place, Time and Situation Level of Consciousness: Alert Patient Behavior: Appropriate, Talkative, Cooperative and Good Eye Contact Mood Description: Calm Affect Description: Calm Patient Cognition Impaired: No Ability to Follow Directions: Good Speech Pattern: Spontaneous Speech Memory Description: Intact Hallucinations: None Delusions: Not Present Thought Process: Intact Thought Content: positive for Intact Judgement: Good DS: Summary Hospital Course Hospital Course: Admission to adult psychiatry for exacerbation of PTSD and Bipolar Disorder, Mixed and psychosocial stressors. Gabapentin, Latuda and [place] were titrated. Lamictal was continued. Caplyta was discontinued. Pt was able to process some of the precipitating stressors and return to her family feeling improved, focused and prepared to resume management of her family life. Time spent discussing smoking cessation with patient: 3 to 10 minutes Status at Discharge Functional status at discharge: independent ambulation Overall status at discharge: patient is back to baseline Time Spent with Patient Time attestation: Total time managing care of this patient today __35__ minutes. Time spent: Greater than 30 minutes Discharge Plan Discharge Anticipated Discharge Date/Time: 03/23/22 12:43 Patient Disposition: Home, Self-Care Discharge Diagnosis: Mixed Bipolar Disorder PTSD Referrals: Mariama Hunt [Other] - 03/24/22 9:20 am (Follow-up Discharge appointment with psychiatric medication provider Appointment by tele-health) Dov Smith [Other] - 03/30/22 10:15 am (Follow-up appointment with outpatient therapist) Marjorie Bower MD [Primary Care Provider] - 04/08/22 8:30 am (in office) Discharge Medications: New Aimovig Autoinjector 140 mg/mL auto-injector 140 mg subcut QMONTH Qty: 1 0RF lithium carbonate 300 mg Tablet Extended Release 300 mg PO BID Qty: 14 0RF gabapentin 400 mg Capsule 800 mg PO DAILY Qty: 14 0RF melatonin 3 mg Tablet 6 mg PO BEDTIME MRX1 Qty: 21 0RF gabapentin 300 mg Capsule 900 mg PO BEDTIME Qty: 21 0RF hydroxyzine HCl 25 mg Tablet 25 mg PO BEDTIME Qty: 7 0RF Celebrate Ca Citrate 500/12.5 1 tab PO DAILY Qty: 0 0RF Celebrate One Mvi 1 tab PO BEDTIME Qty: 0 0RF Latuda 60 mg tablet 60 mg PO DAILY Qty: 7 0RF Rx Instructions: must administer with food (at least 350 calories) Latuda 60 mg tablet 60 mg PO DAILY Qty: 7 0RF Rx Instructions: must administer with food (at least 350 calories) Continued acetaminophen-codeine 300-15 mg tablet 1 tab PO Q6H PRN (Reason: pain) Qty: 14 0RF lamotrigine 25 mg tablet 75 mg PO BEDTIME Qty: 21 0RF albuterol sulfate 90 mcg/actuation HFA aerosol inhaler 2 puff inhalation Q6H Qty: 1 0RF fluticasone propionate [Flovent HFA] 110 mcg/actuation HFA aerosol inhaler 2 puff inhalation BID Qty: 1 0RF Ubrelvy 50 mg tablet 1 tab PO NEEDED Qty: 7 0RF Discontinued lithium carbonate 450 mg tablet extended release 1 tab PO BEDTIME lorazepam 1 mg tablet 1 - 2 tab PO BEDTIME PRN (Reason: insomnia) Caplyta 42 mg capsule 1 cap PO QPM Latuda 40 mg tablet 1 tab PO BEDTIME nitrofurantoin monohyd/m-cryst 100 mg capsule 1 cap PO BID codeine-guaifenesin 10-100 mg/5 mL liquid PO Discharge Orders: Discharge Order (Routine); Ordered 03/23/22 Ordered By: Marley Grant Diet: Advance to usual diet Activity on Discharge: As tolerated Stand Alone Forms: Patient Portal Discharge page, Community Support Care Plan Goals: Maintain mood and safe behaviors Take medications as directed Practice coping skills Continue with out patient providers Call/Return as needed Health Concerns: Mood and behavioral stabilization Plan of Treatment: Follow up with out patient providers Take medications as directed Assessment: Jeana was interviewed prior to discharge and found to be fully oriented and without SI or HI. She has insight and demonstrates good judgment in terms of wanting to pursue treatment. She is not in imminent risk of harm to self or others and has a safety plan which includes presenting to the closest ER or calling 911 if feeling unsafe. She has been observed closely by nursing and unit staff throughout admission. She has not engaged in any behaviors that suggest dangerousness to self or others and has demonstrated appropriate behaviors and impulse control. Discharge Date/Time: 03/23/22 12:57
== END 2022-03-23 12:57 | disposition home or self-care (01) | DRG 753 ==
LOC: HO.ED 19:01 → HO.PM5 22:33
PROVIDERS: Physician Assistant; Admitting Provider Clinical Nurse Specialist Psychiatric/Mental Health, Adult; Emergency Provider Emergency Medicine; PCP Family Medicine; Visit Provider Clinical Nurse Specialist Psychiatric/Mental Health, Adult
DX: F31.60 Bipolar disorder, current episode mixed, unspecified (principal); R45.851 Suicidal ideations; F43.12 Post-traumatic stress disorder, chronic; Z20.822 Contact with and (suspected) exposure to COVID-19; Y90.4 Blood alcohol level of 80-99 mg/100 ml; F10.20 Alcohol dependence, uncomplicated; Z98.84 Bariatric surgery status; Z91.52 Personal history of nonsuicidal self-harm; Z91.040 Latex allergy status; Z88.2 Allergy status to sulfonamides; Z88.1 Allergy status to other antibiotic agents; Z88.8 Allergy status to other drugs, medicaments and biological substances; Z79.51 Long term (current) use of inhaled steroids; Z79.899 Other long term (current) drug therapy
CPT/HCPCS: 36415; 80053; 80061; 80143; 80178; 80179; 80307; 81003; 81025; 82077; 82607; 82746; 83036; 83735; 84439; 84443; 85025; 87635; 90715; 93005; 99285

== ENCOUNTER → 2022-05-28 11:01 | Outpatient (BNVA) | payer BC, MEDICAID, SELFPAY | PROVIDERS: PCP Family Medicine; Visit Provider Physician Assistant Surgical | DX: Z13.89 Encounter for screening for other disorder (principal) ==

== ENCOUNTER 2022-06-01 18:18 | Inpatient (IN) | payer BC, SELFPAY ==
--- NOTE | ~2022-06-01 | CT_ITS ---
EXAMINATION: CT HEAD WITHOUT CONTRAST CLINICAL INFORMATION: Fell. Hit head 3 weeks ago. Daily headaches since. COMPARISON: Head CT October 03, 2021. TECHNIQUE: Contiguous axial imaging was performed from the skull base to vertex without intravenous administration of contrast. This CT examination was performed using dose optimization techniques as appropriate, variously including the following: *Automated exposure control *Adjustment of mA and/or kV according to patient size (this includes techniques or standardized protocols for targeted exams where dose is matched to indication/reason for exam; i.e. extremities or head) *Use of iterative reconstruction technique DLP: 731 mGy-cm. FINDINGS: There is no intracranial hemorrhage, extra-axial collection, mass effect, or territorial infarction. The ventricles are normal in size without hydrocephalus. The calvarium is intact without fracture. The paranasal sinuses and mastoid air cells are clear. CT/CT head/brain wo IV con IMPRESSION: No acute intracranial abnormality.
[2022-06-01 19:20] VITALS: BP 150/79; PULSE 68; RESP 16; TEMP 36.8; O2SAT 100; BMI 32.3
[2022-06-01 19:38] LABS: Amphetamine Screen Urine Not Detected (Not Detect); Barbiturates, Urine Not Detected (Not Detect); Benzodiazepines Screen Urine Not Detected (Not Detect); Cannabinoid Screen Urine Not Detected (Not Detect); Cocaine Screen Urine Not Detected (Not Detect); Fentanyl, urine Not Detected (Not Detect); Opiate Screen Urine Not Detected (Not Detect); Phencyclidine Screen Urine Not Detected (Not Detect)
[2022-06-01 19:39] LABS: COVID-19 Test Negative (Negative); IDNOW Serial# 9DB6401D
[2022-06-01 19:40] VITALS: BP 174/81; PULSE 65; RESP 19; TEMP 36.3; O2SAT 96
[2022-06-01 20:05] LABS: MANUAL DIFF FLAG NO
[2022-06-01 20:08] LABS: Basophils Percent Auto 0.8 % (0-2); Eosinophils Absolute Auto 0.1 X10*3/uL (0.0-0.4); Eosinophils Percent Auto 1.2 % (0-4); Hematocrit 37.5 % (37.0-47.0); Hemoglobin 12.3 g/dl (12.0-16.0); Lymphocytes Absolute Auto 1.6 X10*3/uL (1.2-4.9); Lymphocytes Percent Auto 31.1 % (20-40); Mean Corpuscular HGB Conc 32.8 g/dl (31.0-35.0); Mean Corpuscular Hemoglobin 28.5 pg (27.0-33.0); Mean Corpuscular Volume 86.8 fL (80.0-98.0); Mean Platelet Volume 11.2 fL (9.4-12.3); Monocytes Absolute Auto 0.3 X10*3/uL (0.1-1.2); Monocytes Percent Auto 5.9 % (2-11); Neutrophils Absolute Auto 3.1 x10*3/uL (2.0-8.3); Platelet Count 193 X10*3/uL (160-400); Red Blood Count 4.32 X10*6/uL (4.20-5.50); Red Cell Distribution Width 13.4 % (11.0-16.0); White Blood Count 5.1 X10*3/uL (4.8-10.8)
[2022-06-01 20:17] LABS: Lithium 0.32 mmol/L (0.60-1.20)
[2022-06-01 20:24] LABS: Alanine Aminotransferase 30 U/L (0-31); Albumin Level 4.1 g/dL (3.5-5.0); Alkaline Phosphatase 91 U/L (39-117); Anion Gap 14 (12-20); Aspartate Amino Transferase 28 U/L (5-31); Bilirubin Total 0.5 mg/dL (0.0-1.0); Blood Urea Nitrogen 17 mg/dL (9-16); Calcium 9.4 mg/dL (8.4-10.2); Carbon Dioxide 23 mmol/L (22-29); Chloride 109 mmol/L (96-108); Creatinine Clr Calc Pharmacy 113.8; Estimated Glomerular Filt Rate > 60; Glucose Random 96 mg/dL (60-115); Potassium 4.4 mmol/L (3.3-5.1); Sodium 142 mmol/L (135-145); Total Protein 6.4 g/dL (6.5-8.0)
[2022-06-01] MEDS: Acetaminophen 325 MG TABLET 975 MG PO (23:24)
[2022-06-01 23:35] VITALS: BP 124/79; PULSE 71; RESP 15; TEMP 36.9; O2SAT 97
--- NOTE | 2022-06-02 01:33 | ED.PSYCH ---
HPI - Psych General Chief Complaint: Psychiatric Symptoms Stated Complaint: sent by for psych eval Time Seen by Provider: 06/01/22 18:46 Source: patient Mode of arrival: ambulatory Limitations: no limitations History of Present Illness HPI Narrative: Patient comes to the emergency room complaining of suicidal ideation. Patient states that she went to a psychiatrist and a therapist earlier today, she made suicidal statements during the session, patient was asked to come to the emergency room, patient came voluntarily. Patient states that inpatient therapy has helped her well in the past. Related Data Home Medications Medication Instructions Recorded Confirmed albuterol sulfate 90 mcg/actuation 2 puff inhalation Q4H PRN 06/01/22 06/01/22 aerosol inhaler Shortness Of Breath Or Wheezing gabapentin 600 mg tablet 1,200 mg PO BEDTIME 06/01/22 06/01/22 gabapentin 600 mg tablet 600 mg PO BID@0900,1700 06/01/22 06/01/22 hydroxyzine HCl 25 mg tablet 25 mg PO BEDTIME 06/01/22 06/01/22 lamotrigine 100 mg tablet 100 mg PO BEDTIME 06/01/22 06/01/22 lamotrigine 25 mg tablet 50 mg PO QAM 06/01/22 06/01/22 lithium carbonate 450 mg 750 mg PO BEDTIME 06/01/22 06/01/22 tablet,extended release Allergies Allergy/AdvReac Type Severity Reaction Status Date / Time latex [LATEX] Allergy Unknown Swelling Verified 03/26/22 13:56 sulfamethoxazole Allergy Unknown Rash Verified 03/26/22 13:56 [From BACTRIM] trazodone [TRAZODONE] Allergy Unknown Insomnia Verified 03/26/22 13:56 trimethoprim [From BACTRIM] Allergy Unknown Rash Verified 03/26/22 13:56 CHOCOLATE Allergy Unknown Migraine Uncoded 03/26/22 13:56 From FLONASE Allergy Unknown Migraine Uncoded 03/26/22 13:56 Review of Systems Review of Systems: Constitutional : No Weight loss, No Fever, No Chills, No Night Sweats, No Fatigue, No Malaise ENT/Mouth : No Hearing loss, No Ear Pain, No Nasal Congestion, No Sinus Pain, No Hoarseness, No sore throat, No Rhinorrhea, No Swallowing Difficulty Eyes: No Eye Pain, No Swelling, No Redness, No Foreign Body, No Discharge, No Vision Changes Cardiovascular : No Chest Pain, No SOB, No Dyspnea on Exertion, No Orthopnea, No Edema, No Palpitations Respiratory : No Cough, No Sputum, No Wheezing, No Smoke Exposure, No Dyspnea Gastrointestinal : No Nausea, No Vomiting, No Diarrhea, No Constipation, No abdominal Pain, No Hematochezia, No Melena Genitourinary : no irregular bleeding, No Dysuria, No Urinary Frequency, No Hematuria, No Urinary Incontinence, No Urgency, No Flank Pain, No Urinary Flow Changes, No Hesitancy Musculoskeletal : No joint pain, No Myalgias, No Joint Swelling Skin : No Skin Lesions, No rash Neuro : No Weakness, No Numbness, No Paresthesias, No Loss of Consciousness, No Dizziness, No Headache Psych : Complaint of anxiety, depression, suicidal ideation Heme/Lymph: No Bruising, No Bleeding,No Lymphadenopathy Endocrine : No Polyuria, No Polydipsia, No Temperature Intolerance PMFSH Past Medical History Medical History Alcohol use disorder, moderate, dependence Asthma Bipolar depression Chronic post-traumatic stress disorder (PTSD) Depression GERD (gastroesophageal reflux disease) Hemangioma Insomnia Migraines Mixed bipolar disorder Obesity Steatosis, liver Surgical History H/O laparoscopy History of myringotomy Hx of dilation and curettage Family History Family History Mother Mental health disorder Arthritis Thyroid condition Father Arthritis Autism Hypertension Brother No problems noted. Sister No problems noted. Son No problems noted. Daughter Autism ADHD Social History Social History Household Members: Spouse and Children Household Members Other:: AND AUTISTIC 6 YEAR OLD DAUGHTER Housing: House Are you a primary inpatient care manager rn to a significant other at home: No Do you presently have visiting nurse or other home services: No Alcohol intake: current Alcohol intake frequency: holidays/special occasions only Patient Tobacco Use Status: Never used Tobacco Advance Directives: No Advance Directives Information Provided: No Healthcare Proxy: No Guardian: No service: No Current occupational status: unemployed Sexual orientation: Straight/Heterosexual Physical Exam Vital Signs: Vital Signs: Last Vital Signs Temp 98.4 F 06/01/22 23:35 Pulse 71 06/01/22 23:35 Resp 15 06/01/22 23:35 BP 124/79 06/01/22 23:35 Pulse Ox 97 06/01/22 23:35 O2 Del Method 06/01/22 23:35 BMI result Body Mass Index 32.3 Const: Other: Appearance: Alert. Oriented X3. No acute distress. Eyes: Pupils equal, round and reactive to light. ENT: Pharynx normal. Neck: Normal inspection. Neck supple. No lymph nodes noted. No crepitus CVS: Normal heart rate and rhythm. Pulses normal. Normal S1 and S2 Respiratory: No respiratory distress. Breath sounds normal. No Wheezing. No rales Abdomen: Soft and nontender. No rigidity. No distention. Skin: Skin warm and dry. Normal skin color. Normal skin turgor. Extremities: No lower extremity edema. No Lacerations. No Rash Neuro: Oriented X 3. No motor deficit. No sensory deficit. Moving all extremities. No slurred speech. CN 2 through 12 grossly intact Psych: calm, cooperative, normal affect, patient coherent Medications Administered Discontinued Medications Generic Name Dose Route Start Last Admin Trade Name Osminq PRN Reason Stop Dose Admin Acetaminophen 975 mg 06/01/22 23:18 06/01/22 23:24 Acetaminophen 325 Mg Tablet PO 06/01/22 23:19 975 mg ONCE ONE Administration Medical Decision Making Medical Decision Making [facility] Narrative: -patient's labs have been reviewed -care team evaluated the patient. Patient is on a Section 12, inpatient bed search -sign-out given to Dr. Leggett Lab Data 06/01/22 20:00 06/01/22 20:00 Labs: Lab Results 06/01/22 06/01/22 06/01/22 Range/Units 19:15 19:15 20:00 WBC 5.1 (4.8-10.8) X10*3/uL RBC 4.32 (4.20-5.50) X10*6/uL Hgb 12.3 (12.0-16.0) g/dl Hct 37.5 (37.0-47.0) % MCV 86.8 (80.0-98.0) fL MCH 28.5 (27.0-33.0) pg MCHC 32.8 (31.0-35.0) g/dl RDW 13.4 (11.0-16.0) % Plt Count 193 (160-400) X10*3/uL MPV 11.2 (9.4-12.3) fL Immature Gran % (Auto) 0.0 (0.0-0.4) % Neut % (Auto) 61.0 (45-73) % Lymph % (Auto) 31.1 (20-40) % [place] % (Auto) 5.9 (2-11) % Eos % (Auto) 1.2 (0-4) % Baso % (Auto) 0.8 (0-2) % Lymph # (Auto) 1.6 (1.2-4.9) X10*3/uL [place] # (Auto) 0.3 (0.1-1.2) X10*3/uL Eos # (Auto) 0.1 (0.0-0.4) X10*3/uL Baso # (Auto) 0.0 (0.0-0.2) X10*3/uL Abs Immat Gran (auto) 0.00 (0.00-0.03) X10*3/uL Absolute Neuts (auto) 3.1 (2.0-8.3) x10*3/uL Absolute Nucleated RBC 0.000 (0.0-0.012) X10*3/uL Nucleated RBC % (auto) 0.0 (0.0-0.2) /100WBC Sodium (135-145) mmol/L Potassium (3.3-5.1) mmol/L Chloride (96-108) mmol/L Carbon Dioxide (22-29) mmol/L Anion Gap (12-20) BUN (9-16) mg/dL Creatinine (0.5-1.4) mg/dL Estim Creat Clear Calc Estimated GFR Random Glucose (60-115) mg/dL Calcium (8.4-10.2) mg/dL Total Bilirubin (0.0-1.0) mg/dL AST (5-31) U/L ALT (0-31) U/L Alkaline Phosphatase (39-117) U/L Total Protein (6.5-8.0) g/dL Albumin (3.5-5.0) g/dL Urine Opiates Screen Not Detected (Not Detect) Urine Fentanyl Screen Not Detected (Not Detect) Ur Barbiturates Screen Not Detected (Not Detect) Ur Phencyclidine Scrn Not Detected (Not Detect) Ur Amphetamines Screen Not Detected (Not Detect) U Benzodiazepines Scrn Not Detected (Not Detect) [place] (0.60-1.20) mmol/L Urine Cocaine Screen Not Detected (Not Detect) U Marijuana (THC) Screen Not Detected (Not Detect) COVID-19 (SHAD) Negative (Negative) COVID-19 Clin Com See Note 06/01/22 06/01/22 Range/Units 20:00 20:00 WBC (4.8-10.8) X10*3/uL RBC (4.20-5.50) X10*6/uL Hgb (12.0-16.0) g/dl Hct (37.0-47.0) % MCV (80.0-98.0) fL MCH (27.0-33.0) pg MCHC (31.0-35.0) g/dl RDW (11.0-16.0) % Plt Count (160-400) X10*3/uL MPV (9.4-12.3) fL Immature Gran % (Auto) (0.0-0.4) % Neut % (Auto) (45-73) % Lymph % (Auto) (20-40) % [place] % (Auto) (2-11) % Eos % (Auto) (0-4) % Baso % (Auto) (0-2) % Lymph # (Auto) (1.2-4.9) X10*3/uL [place] # (Auto) (0.1-1.2) X10*3/uL Eos # (Auto) (0.0-0.4) X10*3/uL Baso # (Auto) (0.0-0.2) X10*3/uL Abs Immat Gran (auto) (0.00-0.03) X10*3/uL Absolute Neuts (auto) (2.0-8.3) x10*3/uL Absolute Nucleated RBC (0.0-0.012) X10*3/uL Nucleated RBC % (auto) (0.0-0.2) /100WBC Sodium 142 (135-145) mmol/L Potassium 4.4 (3.3-5.1) mmol/L Chloride 109 H (96-108) mmol/L Carbon Dioxide 23 (22-29) mmol/L Anion Gap 14 (12-20) BUN 17 H (9-16) mg/dL Creatinine 0.76 (0.5-1.4) mg/dL Estim Creat Clear Calc 113.8 Estimated GFR > 60 Random Glucose 96 (60-115) mg/dL Calcium 9.4 (8.4-10.2) mg/dL Total Bilirubin 0.5 (0.0-1.0) mg/dL AST 28 (5-31) U/L ALT 30 (0-31) U/L Alkaline Phosphatase 91 (39-117) U/L Total Protein 6.4 L (6.5-8.0) g/dL Albumin 4.1 (3.5-5.0) g/dL Urine Opiates Screen (Not Detect) Urine Fentanyl Screen (Not Detect) Ur Barbiturates Screen (Not Detect) Ur Phencyclidine Scrn (Not Detect) Ur Amphetamines Screen (Not Detect) U Benzodiazepines Scrn (Not Detect) [place] 0.32 L (0.60-1.20) mmol/L Urine Cocaine Screen (Not Detect) U Marijuana (THC) Screen (Not Detect) COVID-19 (SHAD) (Negative) COVID-19 Clin Com Discharge Plan Discharge Clinical Impression: Suicidal ideation Patient Disposition: Still a Patient Prescriptions: No Action gabapentin 600 mg tablet 600 mg PO BID@0900,1700 lithium carbonate 450 mg tablet extended release 750 mg PO BEDTIME hydroxyzine HCl 25 mg tablet 25 mg PO BEDTIME gabapentin 600 mg tablet 1,200 mg PO BEDTIME lamotrigine 25 mg tablet 50 mg PO QAM lamotrigine 100 mg tablet 100 mg PO BEDTIME albuterol sulfate 90 mcg/actuation HFA aerosol inhaler 2 puff inhalation Q4H PRN (Reason: Shortness Of Breath Or Wheezing) Interventions: [place]-Suicide Risk Severity Scale Last Done: 06/01/22 19:27
--- NOTE | 2022-06-02 06:24 | PC.NURSE ---
Patient slept through the night, no distress observed/reported, disposition per care team is section 12 inpatient bed search, night time medication held because it approved late and patient was sleeping, VSS, behavior non concerning, will continue to monitor.
[2022-06-02 07:53] VITALS: BP 126/68; PULSE 75; RESP 16; TEMP 36.8; O2SAT 98
[2022-06-02] MEDS: Gabapentin 600 MG TABLET PO ×2 (08:23→18:35)
[2022-06-02] MEDS: Acetaminophen 325 MG TABLET 975 MG PO (08:42)
[2022-06-02] MEDS: lamoTRIgine 25 MG TABLET 50 MG PO (08:43)
--- NOTE | 2022-06-02 11:55 | ECG_ITS ---
Test Reason : medical clearance Blood Pressure : / mmHG Vent. Rate : 062 BPM Atrial Rate : 062 BPM P-R Int : 158 ms QRS Dur : 098 ms QT Int : 438 ms P-R-T Axes : 052 016 035 degrees QTc Int : 444 ms Normal sinus rhythm Nonspecific T wave changes Borderline ECG When compared with ECG of 16-MAR-2022 22:36, No significant changes seen Referred By: Lissa Ordoñez Electronically Signed By:Jorje Nash
[2022-06-02 14:00] VITALS: RESP 16
[2022-06-02 19:52] VITALS: BP 124/68; PULSE 60; RESP 18; TEMP 36.6; O2SAT 98
[2022-06-02] MEDS: Gabapentin 600 MG TABLET 1200 MG PO (20:40)
[2022-06-02] MEDS: lamoTRIgine 100 MG TABLET PO (20:40)
[2022-06-02] MEDS: hydrOXYzine HCL 25 MG TABLET PO (20:41)
[2022-06-02] MEDS: Acetaminophen 325 MG TABLET 650 MG PO (21:27)
--- NOTE | 2022-06-02 22:11 | PC.ADMIT ---
Nursing admission note: 37 year old female DX: BiPolar disorder, current episode mixed, severe without psychotic features, PTSD. Referred for admission by CARE team. Signed conditional voluntary for admission. Presented to ED following recommendation of therapist and psychiatrist following disclosure of intrusive and persistent suicidal thoughts with plan to slit my throat . Reports chronic suicidal thoughts however has experienced increase in suicidal ideation. Patient is A+O x4, engages easily, presents with good eye contact, good attn to ADL. Depressed mood, overwhelmed, reports multiple on going stressors. Periods of increased anxiety. Reports history of cutting, superficial lacerations bilateral wrists. Reports recent cuts on thighs. Thoughts are clear, linear and organized. Denies perceptual disturbances, no overt psychosis or expressed delusions. Reports hypersomnia sleeping 8-10 hours plus napping. Poor energy. No reported appetite disturbances. Medical history includes Asthma, GERD, laparoscopy. Reports recent concussion (3 weeks ago), I passed out and hit my head on the wall . Reports at the time was incoherent, and couldn't talk . States she saw her doctor who did neuro exam in office the following day. Reports poor concentration, headaches, poor memory since concussion. Allergy to Latex, Sulfamethoxazole, Trazodone, Trimethoprim, Chocolate. COVID negative. TOX screen negative. Patient oriented to unit, placed on unit safety checks. See nursing assessment, crisis eval for further details.
[2022-06-02] MEDS: Lithium Carbonate ER 450 MG TABLET.ER PO (22:44)
[2022-06-02] MEDS: Lithium Carbonate ER 300 MG TABLET.ER PO (22:44)
[2022-06-03 07:00] VITALS: BMI 30.8
[2022-06-03 08:34] VITALS: BP 135/63; PULSE 98; RESP 20; TEMP 36.4; O2SAT 99
[2022-06-03] MEDS: Acetaminophen 325 MG TABLET 650 MG PO ×2 (08:36→21:23)
[2022-06-03] MEDS: lamoTRIgine 25 MG TABLET 50 MG PO (08:37)
[2022-06-03] MEDS: Gabapentin 600 MG TABLET PO ×2 (08:38→16:47)
[2022-06-03 09:53] LABS: Alanine Aminotransferase 29 U/L (0-31); Albumin Level 4.1 g/dL (3.5-5.0); Alkaline Phosphatase 86 U/L (39-117); Anion Gap 12 (12-20); Aspartate Amino Transferase 25 U/L (5-31); Bilirubin Total 0.7 mg/dL (0.0-1.0); Blood Urea Nitrogen 14 mg/dL (9-16); Calcium 9.6 mg/dL (8.4-10.2); Carbon Dioxide 25 mmol/L (22-29); Chloride 108 mmol/L (96-108); Cholesterol 167 mg/dL; Creatinine Clr Calc Pharmacy 108.1; Estimated Glomerular Filt Rate > 60; Glucose Fasting 84 mg/dL (60-99); HDL Cholesterol 46 mg/dL; LDL Cholesterol Calculated 109 mg/dl; Potassium 4.7 mmol/L (3.3-5.1); Sodium 140 mmol/L (135-145); Total Protein 6.4 g/dL (6.5-8.0); Triglycerides 61 mg/dL
[2022-06-03 09:59] LABS: Estimated Average Glucose 91 mg/dL; Hemoglobin A1c % 4.8 %
--- NOTE | 2022-06-03 10:14 | P.HPPS_ITS ---
HPI Date of Service: 06/03/22 Chief Complaint: SI Sources of Information: patient interviewed, chart reviewed and crisis/core team assessment reviewed Additional Sources of Information: Discussed case with Dr. 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 Pt cites numerous challenging family issues, including [id number]'s suicide 1.5 months ago, recently ill, special needs children and herself getting Covid; also complicating symptoms is fall in shower 3 weeks ago during which time she reports hitting her head and was briefly unconscious, with subsequent daily severe headache (head CT done today and neg). Pt has had worsening tremor from Latuda which makes it impossible to write so she got off but with increased depression. She started Caplyta but had it in the unusual burning sensation her skin that was brief and resolved on its own but made her discontinue it. Although she has chronic intermittent SI, this is the 1st time she has had such as a graphic thought about slitting her throat and so presented to make sure she was safe. Discussed medications and patient would like to retry Caplyta and stay on current dose of lithium to see if that helps. Past Psychiatric History: IP: 4. Last hospitalization she estimates over 10 years ago OP: Dr. Hunt and Dov Smith Trials: Several SIBS: Wrist SA: Denies Medical Evaluation Reviewed: Yes [facility] Medical History Alcohol use disorder, moderate, dependence Asthma Bipolar depression Chronic post-traumatic stress disorder (PTSD) Depression GERD (gastroesophageal reflux disease) Hemangioma Insomnia Migraines Mixed bipolar disorder Obesity Steatosis, liver Surgical History H/O laparoscopy History of myringotomy Hx of dilation and curettage Family History: depression, anxiety, alcohol use d/o mom with cyclical abuse Social History: 13 years. had ADHD, Autism 9yo son-has therapy at home 6 yo daughter-Autism, ADHD. Minimal support from the school. 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 Finances are an issue, family may lose their home Recently their food stamps were stopped Trauma History: affirms Diagnostics Vital Signs (24Hr): Vital Signs - 24 hr 06/02/22 14:00 06/02/22 19:52 06/03/22 08:34 Temperature 97.9 F 97.6 F Pulse Rate 60 98 Respiratory Rate 16 18 20 Blood Pressure 124/68 135/63 Pulse Oximetry 98 99 Oxygen Delivery Method Room Air Room Air BMI result Body Mass Index 32.3 Labs 06/01/22 20:00 06/03/22 09:02 Labs: Laboratory Results - last 48 hr 06/01/22 06/01/22 06/01/22 19:15 19:15 20:00 WBC 5.1 RBC 4.32 Hgb 12.3 Hct 37.5 MCV 86.8 MCH 28.5 MCHC 32.8 RDW 13.4 Plt Count 193 MPV 11.2 Immature Gran % (Auto) 0.0 Neut % (Auto) 61.0 Lymph % (Auto) 31.1 [place] % (Auto) 5.9 Eos % (Auto) 1.2 Baso % (Auto) 0.8 Lymph # (Auto) 1.6 [place] # (Auto) 0.3 Eos # (Auto) 0.1 Baso # (Auto) 0.0 Abs Immat Gran (auto) 0.00 Absolute Neuts (auto) 3.1 Absolute Nucleated RBC 0.000 Nucleated RBC % (auto) 0.0 Sodium Potassium Chloride Carbon Dioxide Anion Gap BUN Creatinine Estim Creat Clear Calc Estimated GFR Random Glucose Fasting Glucose Estimat Average Glucose Hemoglobin A1c % Calcium Total Bilirubin AST ALT Alkaline Phosphatase Total Protein Albumin Triglycerides Cholesterol LDL Cholesterol, Calc HDL Cholesterol Urine Opiates Screen Not Detected Urine Fentanyl Screen Not Detected Ur Barbiturates Screen Not Detected Ur Phencyclidine Scrn Not Detected Ur Amphetamines Screen Not Detected U Benzodiazepines Scrn Not Detected [place] Urine Cocaine Screen Not Detected U Marijuana (THC) Screen Not Detected COVID-19 (SHAD) Negative COVID-19 Clin Com See Note 06/01/22 06/01/22 06/03/22 20:00 20:00 09:02 WBC RBC Hgb Hct MCV MCH MCHC RDW Plt Count MPV Immature Gran % (Auto) Neut % (Auto) Lymph % (Auto) [place] % (Auto) Eos % (Auto) Baso % (Auto) Lymph # (Auto) [place] # (Auto) Eos # (Auto) Baso # (Auto) Abs Immat Gran (auto) Absolute Neuts (auto) Absolute Nucleated RBC Nucleated RBC % (auto) Sodium 142 140 Potassium 4.4 4.7 Chloride 109 H 108 Carbon Dioxide 23 25 Anion Gap 14 12 BUN 17 H 14 Creatinine 0.76 0.80 Estim Creat Clear Calc 113.8 108.1 Estimated GFR > 60 > 60 Random Glucose 96 Fasting Glucose 84 Estimat Average Glucose Hemoglobin A1c % Calcium 9.4 9.6 Total Bilirubin 0.5 0.7 AST 28 25 ALT 30 29 Alkaline Phosphatase 91 86 Total Protein 6.4 L 6.4 L Albumin 4.1 4.1 Triglycerides 61 Cholesterol 167 LDL Cholesterol, Calc 109 HDL Cholesterol 46 Urine Opiates Screen Urine Fentanyl Screen Ur Barbiturates Screen Ur Phencyclidine Scrn Ur Amphetamines Screen U Benzodiazepines Scrn [place] 0.32 L Urine Cocaine Screen U Marijuana (THC) Screen COVID-19 (SHAD) COVID-I Read Books 06/03/22 09:02 WBC RBC Hgb Hct MCV MCH MCHC RDW Plt Count MPV Immature Gran % (Auto) Neut % (Auto) Lymph % (Auto) [place] % (Auto) Eos % (Auto) Baso % (Auto) Lymph # (Auto) [place] # (Auto) Eos # (Auto) Baso # (Auto) Abs Immat Gran (auto) Absolute Neuts (auto) Absolute Nucleated RBC Nucleated RBC % (auto) Sodium Potassium Chloride Carbon Dioxide Anion Gap BUN Creatinine Estim Creat Clear Calc Estimated GFR Random Glucose Fasting Glucose Estimat Average Glucose 91 Hemoglobin A1c % 4.8 Calcium Total Bilirubin AST ALT Alkaline Phosphatase Total Protein Albumin Triglycerides Cholesterol LDL Cholesterol, Calc HDL Cholesterol Urine Opiates Screen Urine Fentanyl Screen Ur Barbiturates Screen Ur Phencyclidine Scrn Ur Amphetamines Screen U Benzodiazepines Scrn [place] Urine Cocaine Screen U Marijuana (THC) Screen COVID-19 (SHAD) COVID-I Read Books Meds/Allergies Meds Home Medications Medication Instructions Recorded Confirmed Type albuterol sulfate 90 mcg/actuation 2 puff inhalation Q4H PRN 06/01/22 06/01/22 History aerosol inhaler Shortness Of Breath Or Wheezing gabapentin 600 mg tablet 1,200 mg PO BEDTIME 06/01/22 06/01/22 History gabapentin 600 mg tablet 600 mg PO BID@0900,1700 06/01/22 06/01/22 History hydroxyzine HCl 25 mg tablet 25 mg PO BEDTIME 06/01/22 06/01/22 History lamotrigine 100 mg tablet 100 mg PO BEDTIME 06/01/22 06/01/22 History lamotrigine 25 mg tablet 50 mg PO QAM 06/01/22 06/01/22 History lithium carbonate 450 mg 750 mg PO BEDTIME 06/01/22 06/01/22 History tablet,extended release Allergies Allergies Allergy/AdvReac Type Severity Reaction Status Date / Time latex [LATEX] Allergy Unknown Swelling Verified 03/26/22 13:56 sulfamethoxazole Allergy Unknown Rash Verified 03/26/22 13:56 [From BACTRIM] trazodone [TRAZODONE] Allergy Unknown Insomnia Verified 03/26/22 13:56 trimethoprim [From BACTRIM] Allergy Unknown Rash Verified 03/26/22 13:56 CHOCOLATE Allergy Unknown Migraine Uncoded 03/26/22 13:56 From FLONASE Allergy Unknown Migraine Uncoded 03/26/22 13:56 Mental Status Exam Mental Status Exam Narrative: Pt is alert and oriented; behavior is cooperative, friendly, anxious; patient is not in distress; dressed in casual attire with unkempt hair, multicolored dyed hair, but adequate hygiene; mood is described as depressed/anxious and affect congruent; eye contact appropriate; Speech is normal rate, volume and prosody and not pressured; no psychomotor agitation/retardation present; thought process is organized and goal directed; Thought content is on tx; otherwise pertinent to relevant topics and without any delusional content, paranoid ideations or gr andiosity; intermittent passive SI/ no HI. There is no evidence of perceptual disturbance; no AVH. Patients insight and judgment appear intact. 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 -patient will stay on lithium and restart Capylta to see if this could be helpful -discussed other options such lithium and restarting Latuda but at a lower dose such as 40 mg to reduce tremor and try to make up the difference with a small amount of Depakote; Gary Gonzalez also options; possibly Wellbutin for depression Plan: CV Q 15 minute checks Continue home medication regimen including: [place] ER 750 mg (300 mg ER +450 mg ER) Restart Capylta 42 mg daily (pt's own med) Head CT: Patient hit head and lost consciousness 3 weeks ago and has since had severe headache Toradol 30 mg IM 1 time dose for chronic headache Patient agrees to start topiramate rate 25 mg b.i.d. for chronic migraines (reviewed risks/side effects including kidney stone and tremor and patient is agreeable to trial) Reduce Lamictal to 100 mg; both patient and outpatient provider think this medi cation has not been helpful and agreed to taper off and discontinue Patient educated on: diagnosis, medication risk/benefits and medical condition Informed Consent: understands Reason for continued inpatient stay Substantial Risk for: rapid decompensation Statement Statement: I have reviewed the history and physical and performed a pertinent examination on my patient. No changes have occurred unless specified. If the History and Physical was not performed prior to admission, the Hospitalist's service will be consulted for completing the admission physical. Time Spent With Patient Time: Total time managing care of this patient today ____ minutes.
[2022-06-03 10:16] LABS: Thyroid Stimulating Hormone 0.77 uIU/mL (0.32-4.0); Vitamin B12 626 pg/mL (200-900)
[2022-06-03] MEDS: Ondansetron ODT 4 MG TAB.RAPDIS TRANSLINGU (10:18)
[2022-06-03] MEDS: Ketorolac Tromethamine 30 MG/ML VIAL IM (14:05)
[2022-06-03] MEDS: Fluticasone Propionate 100 MCG BLST.W.DEV 2 PUFF INHALE ×2 (16:27→21:21)
[2022-06-03] MEDS: lamoTRIgine 100 MG TABLET PO (21:22)
[2022-06-03] MEDS: Lithium Carbonate ER 450 MG TABLET.ER PO (21:22)
[2022-06-03] MEDS: Lithium Carbonate ER 300 MG TABLET.ER PO (21:22)
[2022-06-03] MEDS: Gabapentin 600 MG TABLET 1200 MG PO (21:22)
[2022-06-03] MEDS: Topiramate 25 MG TABLET PO (21:22)
[2022-06-03] MEDS: hydrOXYzine HCL 25 MG TABLET PO (21:23)
[2022-06-03 21:31] VITALS: BP 119/78; PULSE 70; RESP 18; TEMP 36.6; O2SAT 100
[2022-06-04 06:00] VITALS: BP 116/60; PULSE 54; RESP 16; TEMP 36.6; O2SAT 98
[2022-06-04] MEDS: Fluticasone Propionate 100 MCG BLST.W.DEV 2 PUFF INHALE ×2 (08:46→20:58)
[2022-06-04] MEDS: Gabapentin 600 MG TABLET PO ×2 (08:47→17:07)
[2022-06-04] MEDS: Topiramate 25 MG TABLET PO ×2 (08:47→21:00)
--- NOTE | 2022-06-04 13:08 | HO.PSYCHPN ---
Subjective Subjective Date of Service: 06/04/22 Reason For Visit: SI Interim History: met with patient; discussed with team pt reports labile mood saying she is still depressed and gets waves of frustration and thoughts of ending her life; she says she understands situation logically, but cannot seem to stop getting angry at herself for struggling. 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 pt says headache resolved w/ one time dose of Tordodal; tolerating Topimax and currently headache free. Has not yet restarted Caplyta, scheduled for later in day Mental Status Exam Mental Status Exam Narrative: Pt is alert and oriented; behavior is cooperative, friendly, anxious; patient is not in distress; dressed in casual attire with, multicolored dyed hair; adequate hygiene; mood is described as depressed/anxious and affect congruent; eye contact appropriate; Speech is normal rate, volume and prosody and not pressured; no psychomotor agitation/retardation present; thought process is organized and goal directed; Thought content is on tx; otherwise pertinent to relevant topics and without any delusional content, paranoid ideations or grandiosity; intermittent passive SI/ no HI. There is no evidence of perceptual disturbance; no AVH. Patients insight and judgment are impaired but improving. Diagnostics Vital Signs (24Hr): Vital Signs - 24 hr 06/03/22 21:31 06/04/22 06:00 Temperature 97.9 F 97.8 F Pulse Rate 70 54 Respiratory Rate 18 16 Blood Pressure 119/78 116/60 Pulse Oximetry 100 98 Oxygen Delivery Method Room Air Room Air BMI result Body Mass Index 30.8 Labs 06/01/22 20:00 06/03/22 09:02 Labs: Laboratory Results - last 48 hr 06/03/22 06/03/22 09:02 09:02 Sodium 140 Potassium 4.7 Chloride 108 Carbon Dioxide 25 Anion Gap 12 BUN 14 Creatinine 0.80 Estim Creat Clear Calc 108.1 Estimated GFR > 60 Fasting Glucose 84 Estimat Average Glucose 91 Hemoglobin A1c % 4.8 Calcium 9.6 Total Bilirubin 0.7 AST 25 ALT 29 Alkaline Phosphatase 86 Total Protein 6.4 L Albumin 4.1 Triglycerides 61 Cholesterol 167 LDL Cholesterol, Calc 109 HDL Cholesterol 46 Vitamin B12 626 TSH 0.77 Imaging Radiology Impressions: ITS Impressions Head CT 06/03/22 10:42 IMPRESSION: No acute intracranial abnormality. Medications Medications Current Medications Acetaminophen (Acetaminophen 325 Mg Tablet) 650 mg PO Q6H PRN PRN Reason: Headache/Pain Mild Scale (1-3) Last Admin: 06/03/22 21:23 Dose: 650 mg Al Hydroxide/Mg Hydroxide (Magnesium Hydrox/Alum Hydrox 30 Ml Oral.Susp) 30 ml PO Q6H PRN PRN Reason: Heartburn/Nausea Albuterol Sulfate (Albuterol Sulfate 90 Mcg 8 Gm Inhaler) 2 puff INHALE Q4H PRN PRN Reason: Shortness Of Breath Or Wheezing Fluticasone Propionate (Fluticasone Propionate 100 Mcg Blst.W.Dev) 2 puff INHALE RBID [facility] Last Admin: 06/04/22 08:46 Dose: 2 puff Gabapentin (Gabapentin 600 Mg Tablet) 600 mg PO BID@0900,1700 [facility] Last Admin: 06/04/22 08:47 Dose: 600 mg Gabapentin (Gabapentin 600 Mg Tablet) 1,200 mg PO BEDTIME [facility] Last Admin: 06/03/22 21:22 Dose: 1,200 mg Hydroxyzine HCl (Hydroxyzine Hcl 25 Mg Tablet) 25 mg PO BEDTIME [facility] Last Admin: 06/03/22 21:23 Dose: 25 mg Hydroxyzine HCl (Hydroxyzine Hcl 25 Mg Tablet) 25 mg PO Q6H PRN PRN Reason: Anxiety Lamotrigine (Lamotrigine 100 Mg Tablet) 100 mg PO BEDTIME [facility] Last Admin: 06/03/22 21:22 Dose: 100 mg [place] Carbonate ([place] Carbonate Er 450 Mg Tablet.Er) 450 mg PO BEDTIME [facility] Last Admin: 06/03/22 21:22 Dose: 450 mg [place] Carbonate ([place] Carbonate Er 300 Mg Tablet.Er) 300 mg PO BEDTIME [facility] Last Admin: 06/03/22 21:22 Dose: 300 mg Magnesium Hydroxide (Milk Of Magnesia 30 Ml Oral.Susp) 30 ml PO DAILY PRN PRN Reason: Constipation Patient Own Medication (Calcium Citrate Soft Chews) 1 each PO DAILY [facility] Last Admin: 06/04/22 08:46 Dose: 1 each Patient Own Medication (Caplyta 42mg) 1 each PO DAILY@1700 [facility] Patient Own Medication (Ubrelvy 50 Mg) 1 each PO DAILY PRN PRN Reason: Migraine Headache Patient Own Medication ( Celebrate Multi- Complete 45) 1 each PO DAILY JAZMIN Ondansetron HCl (Ondansetron Odt 4 Mg Tab.Rapdis) 4 mg TRANSLINGU Q6H PRN PRN Reason: nausea Topiramate (Topiramate 25 Mg Tablet) 25 mg PO BID [facility] Last Admin: 06/04/22 08:47 Dose: 25 mg Allergies Allergies Allergy/AdvReac Type Severity Reaction Status Date / Time latex [LATEX] Allergy Unknown Swelling Verified 03/26/22 13:56 sulfamethoxazole Allergy Unknown Rash Verified 03/26/22 13:56 [From BACTRIM] trazodone [TRAZODONE] Allergy Unknown Insomnia Verified 03/26/22 13:56 trimethoprim [From BACTRIM] Allergy Unknown Rash Verified 03/26/22 13:56 CHOCOLATE Allergy Unknown Migraine Uncoded 03/26/22 13:56 From FLONASE Allergy Unknown Migraine Uncoded 03/26/22 13:56 Assessment & Plan Assessment & Plan (1) Mixed bipolar disorder: Status: Acute Code(s): F31.60 - Bipolar disorder, current episode mixed, unspecified (2) Chronic post-traumatic stress disorder (PTSD): Status: Acute Code(s): F43.12 - Post-traumatic stress disorder, chronic (3) S/P laparoscopic sleeve gastrectomy: Status: Acute Code(s): Z98.84 - Bariatric surgery status (4) Migraines: Status: Acute Code(s): G43.909 - Migraine, unspecified, not intractable, without status migrainosus Plan 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 -patient will stay on lithium and restart Capylta to see if this could be helpful -discussed other options such lithium and restarting Latuda but at a lower dose such as 40 mg to reduce tremor and try to make up the difference with a small amount of Depakote; Vraylar, Rexulti also options; possibly Wellbutin for depression 06/04 continue current tx plan Plan: CV Q 15 minute checks Continue home medication regimen including: [place] ER 750 mg (300 mg ER +450 mg ER) Restarting Capylta 42 mg daily (pt's own med); said caused burning sensation in her skin first time took it (resolved on own) Head CT: unremarkable Toradol 30 mg IM 1 time dose for chronic headache Continue topiramate rate 25 mg b.i.d. for chronic migraines (reviewed risks/side effects including kidney stone and tremor and patient is agreeable to trial) Continue to taper off Lamictal; both patient and outpatient provider think this medication has not been helpful and agreed to taper off and discontinue Patient educated on: diagnosis and medication risk/benefits Informed Consent: understands Reason for contiued inpatient stay Substantial Risk for: harm to self Time Spent With Patient Time: Total time managing care of this patient today ____ minutes.
[2022-06-04 18:00] VITALS: BP 153/92; PULSE 74; RESP 20; TEMP 36.3; O2SAT 100
[2022-06-04] MEDS: Ondansetron ODT 4 MG TAB.RAPDIS TRANSLINGU (18:16)
[2022-06-04] MEDS: Acetaminophen 325 MG TABLET 650 MG PO (18:16)
--- NOTE | 2022-06-04 19:08 | PC.NURSE ---
patient c/o feeling like her skin is on fire vital signs 97.4, 74, 20, 153/92, 100%. patient is noted to have redness to her forehead, cheeks and a small area on her left upper arm. no other areas of redness noted. No difficulty breathing noted. patient is fully conscious during this writers evaluation. Aida Vincent MD made aware. New order for Benadryl 50mg obtained.
[2022-06-04] MEDS: diphenhydrAMINE HCL 25 MG CAPSULE 50 MG PO (19:24)
[2022-06-04] MEDS: lamoTRIgine 100 MG TABLET PO (20:59)
[2022-06-04 21:00] VITALS: BP 121/59; PULSE 69; RESP 16; TEMP 36.7; O2SAT 99
[2022-06-04] MEDS: Lithium Carbonate ER 450 MG TABLET.ER PO (21:00)
[2022-06-04] MEDS: Lithium Carbonate ER 300 MG TABLET.ER PO (21:00)
[2022-06-04] MEDS: hydrOXYzine HCL 25 MG TABLET PO (21:00)
[2022-06-04] MEDS: Gabapentin 600 MG TABLET 1200 MG PO (21:00)
[2022-06-05] MEDS: Acetaminophen 325 MG TABLET 650 MG PO ×2 (04:52→22:35)
[2022-06-05 06:00] VITALS: BP 102/56; PULSE 60; RESP 18; TEMP 36.9; O2SAT 98
[2022-06-05] MEDS: Gabapentin 600 MG TABLET PO ×2 (09:28→16:49)
[2022-06-05] MEDS: Topiramate 25 MG TABLET PO ×2 (09:28→22:35)
[2022-06-05] MEDS: Ondansetron ODT 4 MG TAB.RAPDIS TRANSLINGU (09:32)
[2022-06-05] MEDS: Ketorolac Tromethamine 30 MG/ML VIAL IM ×2 (11:45→23:20)
[2022-06-05] MEDS: Famotidine 20 MG TABLET PO (11:45)
--- NOTE | 2022-06-05 12:24 | HO.PSYCHPN ---
Subjective Subjective Date of Service: 06/05/22 Reason For Visit: SI Subjective Notes: Conditional Voluntary Interim History: Pt had first dose of caplyta- reported feeling her body was on fire. she had benadryl with good effect. She reports migraine not responding to usual medication she takes ulbrelvy. She had toradol with some effect today. She reports feeling like room spinning. We check her ortho VS which were negative. She was given dose of meclizine which she reports poor effect. She describes mood as terrible. She reports passive suicidal ideation but denies any plan or intent. She has been mostly in bed. For now will not reintroduce caplyta nor start new med vraylar as pt physically not feeling well. Medication Compliance: Yes Mental Status Exam Mental Status Exam Narrative: Appearance: casually groomed, in bed, in NAD Behavior: cooperative Psychomotor: no agitation or retardation noted Speech: clear, normal rate/rhythm/volume, spontaneous TP: linear TC: no signs of psychosis, somatically preoccupied Mood: terrible Affect: blunted SI: passive SI, no plan or intent HI: none AH/VH: none Delusions: none Insight/judgment: fair x 2. Memory/cog: alert, oriented x 2. grossly intact to conversational testing. Diagnostics Vital Signs (24Hr): Vital Signs - 24 hr 06/06/22 16:18 06/06/22 22:30 06/07/22 06:00 Temperature 98.0 F 98.6 F Pulse Rate 61 56 60 Respiratory Rate 18 16 Blood Pressure 123/62 121/67 100/57 L Pulse Oximetry 100 100 Oxygen Delivery Method Room Air Room Air BMI result Body Mass Index 30.8 Labs 06/01/22 20:00 06/03/22 09:02 Imaging Radiology Impressions: ITS Impressions Head CT 06/03/22 10:42 IMPRESSION: No acute intracranial abnormality. Medications Medications Current Medications Acetaminophen (Acetaminophen 325 Mg Tablet) 650 mg PO Q6H PRN PRN Reason: Headache/Pain Mild Scale (1-3) Last Admin: 06/07/22 14:46 Dose: 650 mg Al Hydroxide/Mg Hydroxide (Magnesium Hydrox/Alum Hydrox 30 Ml Oral.Susp) 30 ml PO Q6H PRN PRN Reason: Heartburn/Nausea Albuterol Sulfate (Albuterol Sulfate 90 Mcg 8 Gm Inhaler) 2 puff INHALE Q4H PRN PRN Reason: Shortness Of Breath Or Wheezing Fluticasone Propionate (Fluticasone Propionate 100 Mcg Blst.W.Dev) 2 puff INHALE RBID [facility] Last Admin: 06/07/22 09:07 Dose: 2 puff Gabapentin (Gabapentin 600 Mg Tablet) 600 mg PO BID@0900,1700 [facility] Last Admin: 06/07/22 09:07 Dose: 600 mg Gabapentin (Gabapentin 600 Mg Tablet) 1,200 mg PO BEDTIME [facility] Last Admin: 06/06/22 22:41 Dose: 1,200 mg Hydroxyzine HCl (Hydroxyzine Hcl 25 Mg Tablet) 25 mg PO BEDTIME [facility] Last Admin: 06/06/22 22:40 Dose: 25 mg Hydroxyzine HCl (Hydroxyzine Hcl 25 Mg Tablet) 25 mg PO Q6H PRN PRN Reason: Anxiety Ketorolac Tromethamine (Ketorolac Tromethamine 30 Mg/Ml Vial) 30 mg IM Q6H PRN PRN Reason: Pain, Moderate (Pain Scale 4-6 Last Admin: 06/06/22 09:21 Dose: 30 mg Lamotrigine (Lamotrigine 100 Mg Tablet) 100 mg PO BEDTIME [facility] Last Admin: 06/06/22 22:40 Dose: 100 mg [place] Carbonate ([place] Carbonate Er 450 Mg Tablet.Er) 450 mg PO BEDTIME [facility] Last Admin: 06/06/22 22:40 Dose: 450 mg [place] Carbonate ([place] Carbonate Er 300 Mg Tablet.Er) 300 mg PO BEDTIME [facility] Last Admin: 06/06/22 22:39 Dose: 300 mg Magnesium Hydroxide (Milk Of Magnesia 30 Ml Oral.Susp) 30 ml PO DAILY PRN PRN Reason: Constipation Patient Own Medication (Calcium Citrate Soft Chews) 1 each PO DAILY [facility] Last Admin: 06/07/22 10:01 Dose: 1 each Patient Own Medication (Ubrelvy 50 Mg) 1 each PO DAILY PRN PRN Reason: Migraine Headache Last Admin: 06/05/22 09:32 Dose: 1 each Patient Own Medication ( Celebrate Multi- Complete 45) 1 each PO BEDTIME [facility] Ondansetron HCl (Ondansetron Odt 4 Mg Tab.Rapdis) 4 mg TRANSLINGU Q6H PRN PRN Reason: nausea Last Admin: 06/05/22 09:32 Dose: 4 mg Topiramate (Topiramate 25 Mg Tablet) 25 mg PO BID [facility]AZMIN Last Admin: 06/07/22 09:07 Dose: 25 mg Allergies Allergies Allergy/AdvReac Type Severity Reaction Status Date / Time latex [LATEX] Allergy Unknown Swelling Verified 03/26/22 13:56 sulfamethoxazole Allergy Unknown Rash Verified 03/26/22 13:56 [From BACTRIM] trazodone [TRAZODONE] Allergy Unknown Insomnia Verified 03/26/22 13:56 trimethoprim [From BACTRIM] Allergy Unknown Rash Verified 03/26/22 13:56 CHOCOLATE Allergy Unknown Migraine Uncoded 03/26/22 13:56 From FLONASE Allergy Unknown Migraine Uncoded 03/26/22 13:56 Assessment & Plan Assessment & Plan (1) Mixed bipolar disorder: Status: Acute Code(s): F31.60 - Bipolar disorder, current episode mixed, unspecified (2) Chronic post-traumatic stress disorder (PTSD): Status: Acute Code(s): F43.12 - Post-traumatic stress disorder, chronic (3) S/P laparoscopic sleeve gastrectomy: Status: Acute Code(s): Z98.84 - Bariatric surgery status (4) Migraines: Status: Acute Code(s): G43.909 - Migraine, unspecified, not intractable, without status migrainosus Plan 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 -patient will stay on lithium and restart Capylta to see if this could be helpful -discussed other options such lithium and restarting Latuda but at a lower dose such as 40 mg to reduce tremor and try to make up the difference with a small amount of Depakote; Vraylar, Rexulti also options; possibly Wellbutin for depression 06/04 continue current tx plan Plan: CV Q 15 minute checks Continue home medication regimen including: [place] ER 750 mg (300 mg ER +450 mg ER) Restarting Capylta 42 mg daily (pt's own med); said caused burning sensation in her skin first time took it (resolved on own) Head CT: unremarkable Toradol 30 mg IM 1 time dose for chronic headache Continue topiramate rate 25 mg b.i.d. for chronic migraines (reviewed risks/side effects including kidney stone and tremor and patient is agreeable to trial) Continue to taper off Lamictal; both patient and outpatient provider think this medication has not been helpful and agreed to taper off and discontinue 05/05-continue tx. Stop caplyta due to allergic rx/ Reason for contiued inpatient stay Substantial Risk for: harm to self Time Spent With Patient Time: Total time managing care of this patient today ____ minutes.
[2022-06-05 16:57] VITALS: BP 99/58; PULSE 74; RESP 16; TEMP 36.6; O2SAT 97
[2022-06-05 17:15] VITALS: BP 103/54; PULSE 85
[2022-06-05] MEDS: Meclizine HCl 25 MG TABLET PO (17:47)
--- NOTE | 2022-06-05 18:09 | PC.NURSE ---
Pt c/o increased dizziness, reports feeling as if the room is spinning, is worse when sitting up or standing. Sitting BP 99/58, P 74, standing BP 103/54 BP 85. Reports MOREL pain 4/10, and is bearable. Provider notified. Ordered meclizine 25 MG PO x1, given at 1747. Effect pending. Placed on 5 minute checks for increased monitoring due to fall risk.
[2022-06-05] MEDS: Fluticasone Propionate 100 MCG BLST.W.DEV 2 PUFF INHALE (22:34)
[2022-06-05] MEDS: Lithium Carbonate ER 450 MG TABLET.ER PO (22:35)
[2022-06-05] MEDS: hydrOXYzine HCL 25 MG TABLET PO (22:35)
[2022-06-05] MEDS: lamoTRIgine 100 MG TABLET PO (22:36)
[2022-06-05] MEDS: Gabapentin 600 MG TABLET 1200 MG PO (22:36)
[2022-06-05] MEDS: Lithium Carbonate ER 300 MG TABLET.ER PO (22:36)
[2022-06-05 23:00] VITALS: BP 107/54; PULSE 60; RESP 18; TEMP 36.8; O2SAT 98
[2022-06-06 09:17] VITALS: BP 113/53; PULSE 64; RESP 16; TEMP 36.5; O2SAT 98
[2022-06-06] MEDS: Gabapentin 600 MG TABLET PO ×2 (09:20→17:33)
[2022-06-06] MEDS: Topiramate 25 MG TABLET PO ×2 (09:20→22:40)
[2022-06-06] MEDS: Fluticasone Propionate 100 MCG BLST.W.DEV 2 PUFF INHALE ×2 (09:21→22:39)
[2022-06-06] MEDS: Ketorolac Tromethamine 30 MG/ML VIAL IM (09:21)
--- NOTE | 2022-06-06 12:32 | P.PNPSI_ITS ---
Subjective Subjective Date of Service: 06/06/22 Reason For Visit: SI Subjective Notes: Conditional Voluntary Interim History: Pt continues to report feeling dizzy, but less so than yesterday. No feeling of buring all over. NO difficulty breathing. She reports feeling depressed, still having passive SI. She slept through the night. She has been mostly in her room. No behavioral concerns. Medication Compliance: Yes Mental Status Exam Mental Status Exam Narrative: Appearance: casually groomed, in bed, in NAD Behavior: cooperative Psychomotor: no agitation or retardation noted Speech: clear, normal rate/rhythm/volume, spontaneous TP: linear TC: no signs of psychosis, somatically preoccupied Mood: terrible Affect: blunted SI: passive SI, no plan or intent HI: none AH/VH: none Delusions: none Insight/judgment: fair x 2. Memory/cog: alert, oriented x 2. grossly intact to conversational testing. Diagnostics Vital Signs (24Hr): Vital Signs - 24 hr 06/06/22 16:18 06/06/22 22:30 06/07/22 06:00 Temperature 98.0 F 98.6 F Pulse Rate 61 56 60 Respiratory Rate 18 16 Blood Pressure 123/62 121/67 100/57 L Pulse Oximetry 100 100 Oxygen Delivery Method Room Air Room Air BMI result Body Mass Index 30.8 Labs 06/01/22 20:00 06/03/22 09:02 Imaging Radiology Impressions: ITS Impressions Head CT 06/03/22 10:42 IMPRESSION: No acute intracranial abnormality. Medications Medications Current Medications Acetaminophen (Acetaminophen 325 Mg Tablet) 650 mg PO Q6H PRN PRN Reason: Headache/Pain Mild Scale (1-3) Last Admin: 06/07/22 14:46 Dose: 650 mg Al Hydroxide/Mg Hydroxide (Magnesium Hydrox/Alum Hydrox 30 Ml Oral.Susp) 30 ml PO Q6H PRN PRN Reason: Heartburn/Nausea Albuterol Sulfate (Albuterol Sulfate 90 Mcg 8 Gm Inhaler) 2 puff INHALE Q4H PRN PRN Reason: Shortness Of Breath Or Wheezing Fluticasone Propionate (Fluticasone Propionate 100 Mcg Blst.W.Dev) 2 puff INHALE RBID [facility] Last Admin: 06/07/22 09:07 Dose: 2 puff Gabapentin (Gabapentin 600 Mg Tablet) 600 mg PO BID@0900,1700 [facility] Last Admin: 06/07/22 09:07 Dose: 600 mg Gabapentin (Gabapentin 600 Mg Tablet) 1,200 mg PO BEDTIME [facility] Last Admin: 06/06/22 22:41 Dose: 1,200 mg Hydroxyzine HCl (Hydroxyzine Hcl 25 Mg Tablet) 25 mg PO BEDTIME [facility] Last Admin: 06/06/22 22:40 Dose: 25 mg Hydroxyzine HCl (Hydroxyzine Hcl 25 Mg Tablet) 25 mg PO Q6H PRN PRN Reason: Anxiety Ketorolac Tromethamine (Ketorolac Tromethamine 30 Mg/Ml Vial) 30 mg IM Q6H PRN PRN Reason: Pain, Moderate (Pain Scale 4-6 Last Admin: 06/06/22 09:21 Dose: 30 mg Lamotrigine (Lamotrigine 100 Mg Tablet) 100 mg PO BEDTIME [facility] Last Admin: 06/06/22 22:40 Dose: 100 mg [place] Carbonate ([place] Carbonate Er 450 Mg Tablet.Er) 450 mg PO BEDTIME [facility] Last Admin: 06/06/22 22:40 Dose: 450 mg [place] Carbonate ([place] Carbonate Er 300 Mg Tablet.Er) 300 mg PO BEDTIME [facility] Last Admin: 06/06/22 22:39 Dose: 300 mg Magnesium Hydroxide (Milk Of Magnesia 30 Ml Oral.Susp) 30 ml PO DAILY PRN PRN Reason: Constipation Patient Own Medication (Calcium Citrate Soft Chews) 1 each PO DAILY [facility] Last Admin: 06/07/22 10:01 Dose: 1 each Patient Own Medication (Ubrelvy 50 Mg) 1 each PO DAILY PRN PRN Reason: Migraine Headache Last Admin: 06/05/22 09:32 Dose: 1 each Patient Own Medication ( Celebrate Multi- Complete 45) 1 each PO BEDTIME [facility] Ondansetron HCl (Ondansetron Odt 4 Mg Tab.Rapdis) 4 mg TRANSLINGU Q6H PRN PRN Reason: nausea Last Admin: 06/05/22 09:32 Dose: 4 mg Topiramate (Topiramate 25 Mg Tablet) 25 mg PO BID [facility] Last Admin: 06/07/22 09:07 Dose: 25 mg Allergies Allergies Allergy/AdvReac Type Severity Reaction Status Date / Time latex [LATEX] Allergy Unknown Swelling Verified 03/26/22 13:56 sulfamethoxazole Allergy Unknown Rash Verified 03/26/22 13:56 [From BACTRIM] trazodone [TRAZODONE] Allergy Unknown Insomnia Verified 03/26/22 13:56 trimethoprim [From BACTRIM] Allergy Unknown Rash Verified 03/26/22 13:56 CHOCOLATE Allergy Unknown Migraine Uncoded 03/26/22 13:56 From FLONASE Allergy Unknown Migraine Uncoded 03/26/22 13:56 Assessment & Plan Assessment & Plan (1) Mixed bipolar disorder: Status: Acute Code(s): F31.60 - Bipolar disorder, current episode mixed, unspecified (2) Chronic post-traumatic stress disorder (PTSD): Status: Acute Code(s): F43.12 - Post-traumatic stress disorder, chronic (3) S/P laparoscopic sleeve gastrectomy: Status: Acute Code(s): Z98.84 - Bariatric surgery status (4) Migraines: Status: Acute Code(s): G43.909 - Migraine, unspecified, not intractable, without status migrainosus Plan 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 -patient will stay on lithium and restart Capylta to see if this could be helpful -discussed other options such lithium and restarting Latuda but at a lower dose such as 40 mg to reduce tremor and try to make up the difference with a small amount of Depakote; Mauro Gonzalezultlogan also options; possibly Wellbutin for dep ression 06/04 continue current tx plan Plan: CV Q 15 minute checks Continue home medication regimen including: [place] ER 750 mg (300 mg ER +450 mg ER) Restarting Capylta 42 mg daily (pt's own med); said caused burning sensation in her skin first time took it (resolved on own) Head CT: unremarkable Toradol 30 mg IM 1 time dose for chronic headache Continue topiramate rate 25 mg b.i.d. for chronic migraines (reviewed risks/side effects including kidney stone and tremor and patient is agreeable to trial) Continue to taper off Lamictal; both patient and outpatient provider think this medication has not been helpful and agreed to taper off and discontinue 05/05-continue tx. Stop caplyta due to allergic rx/ 05/06 continue tx. may start vraylar tomorrow as pt feels better physically. Reason for contiued inpatient stay Substantial Risk for: harm to self Time Spent With Patient Time: Total time managing care of this patient today ____ minutes.
[2022-06-06 16:18] VITALS: BP 123/62; PULSE 61
[2022-06-06 22:30] VITALS: BP 121/67; PULSE 56; RESP 18; TEMP 36.7; O2SAT 100
[2022-06-06] MEDS: Lithium Carbonate ER 300 MG TABLET.ER PO (22:39)
[2022-06-06] MEDS: hydrOXYzine HCL 25 MG TABLET PO (22:40)
[2022-06-06] MEDS: lamoTRIgine 100 MG TABLET PO (22:40)
[2022-06-06] MEDS: Lithium Carbonate ER 450 MG TABLET.ER PO (22:40)
[2022-06-06] MEDS: Acetaminophen 325 MG TABLET 650 MG PO (22:41)
[2022-06-06] MEDS: Gabapentin 600 MG TABLET 1200 MG PO (22:41)
[2022-06-07 06:00] VITALS: BP 100/57; PULSE 60; RESP 16; TEMP 37; O2SAT 100
[2022-06-07] MEDS: Gabapentin 600 MG TABLET PO ×2 (09:07→17:53)
[2022-06-07] MEDS: Topiramate 25 MG TABLET PO ×2 (09:07→20:28)
[2022-06-07] MEDS: Fluticasone Propionate 100 MCG BLST.W.DEV 2 PUFF INHALE ×2 (09:07→20:26)
--- NOTE | 2022-06-07 11:34 | HO.PSYCHPN ---
Subjective Subjective Date of Service: 06/07/22 Reason For Visit: SI Subjective Notes: Conditional Voluntary Interim History: Pt up and more visible on the unit. She reports physically feeling well. She had visit from her who she reports is very supportive. She reports she has to be back home soon as she has to care for her children. She wants to try vraylar today and hopes she does not have any side effects. Passive SI, but reports less than before. Medication Compliance: Yes Mental Status Exam Mental Status Exam Narrative: Appearance: casually groomed, in bed, in NAD Behavior: cooperative Psychomotor: no agitation or retardation noted Speech: clear, normal rate/rhythm/volume, spontaneous TP: linear TC: no signs of psychosis, somatically preoccupied Mood: terrible Affect: blunted SI: passive SI, no plan or intent HI: none AH/VH: none Delusions: none Insight/judgment: fair x 2. Memory/cog: alert, oriented x 2. grossly intact to conversational testing. Diagnostics Vital Signs (24Hr): Vital Signs - 24 hr 06/06/22 16:18 06/06/22 22:30 06/07/22 06:00 Temperature 98.0 F 98.6 F Pulse Rate 61 56 60 Respiratory Rate 18 16 Blood Pressure 123/62 121/67 100/57 L Pulse Oximetry 100 100 Oxygen Delivery Method Room Air Room Air BMI result Body Mass Index 30.8 Labs 06/01/22 20:00 06/03/22 09:02 Imaging Radiology Impressions: ITS Impressions Head CT 06/03/22 10:42 IMPRESSION: No acute intracranial abnormality. Medications Medications Current Medications Acetaminophen (Acetaminophen 325 Mg Tablet) 650 mg PO Q6H PRN PRN Reason: Headache/Pain Mild Scale (1-3) Last Admin: 06/07/22 14:46 Dose: 650 mg Al Hydroxide/Mg Hydroxide (Magnesium Hydrox/Alum Hydrox 30 Ml Oral.Susp) 30 ml PO Q6H PRN PRN Reason: Heartburn/Nausea Albuterol Sulfate (Albuterol Sulfate 90 Mcg 8 Gm Inhaler) 2 puff INHALE Q4H PRN PRN Reason: Shortness Of Breath Or Wheezing Fluticasone Propionate (Fluticasone Propionate 100 Mcg Blst.W.Dev) 2 puff INHALE RBID [facility] Last Admin: 06/07/22 09:07 Dose: 2 puff Gabapentin (Gabapentin 600 Mg Tablet) 600 mg PO BID@0900,1700 [facility] Last Admin: 06/07/22 09:07 Dose: 600 mg Gabapentin (Gabapentin 600 Mg Tablet) 1,200 mg PO BEDTIME [facility] Last Admin: 06/06/22 22:41 Dose: 1,200 mg Hydroxyzine HCl (Hydroxyzine Hcl 25 Mg Tablet) 25 mg PO BEDTIME [facility] Last Admin: 06/06/22 22:40 Dose: 25 mg Hydroxyzine HCl (Hydroxyzine Hcl 25 Mg Tablet) 25 mg PO Q6H PRN PRN Reason: Anxiety Ketorolac Tromethamine (Ketorolac Tromethamine 30 Mg/Ml Vial) 30 mg IM Q6H PRN PRN Reason: Pain, Moderate (Pain Scale 4-6 Last Admin: 06/06/22 09:21 Dose: 30 mg Lamotrigine (Lamotrigine 100 Mg Tablet) 100 mg PO BEDTIME [facility] Last Admin: 06/06/22 22:40 Dose: 100 mg [place] Carbonate ([place] Carbonate Er 450 Mg Tablet.Er) 450 mg PO BEDTIME [facility] Last Admin: 06/06/22 22:40 Dose: 450 mg [place] Carbonate ([place] Carbonate Er 300 Mg Tablet.Er) 300 mg PO BEDTIME [facility] Last Admin: 06/06/22 22:39 Dose: 300 mg Magnesium Hydroxide (Milk Of Magnesia 30 Ml Oral.Susp) 30 ml PO DAILY PRN PRN Reason: Constipation Patient Own Medication (Calcium Citrate Soft Chews) 1 each PO DAILY [facility] Last Admin: 06/07/22 10:01 Dose: 1 each Patient Own Medication (Ubrelvy 50 Mg) 1 each PO DAILY PRN PRN Reason: Migraine Headache Last Admin: 06/05/22 09:32 Dose: 1 each Patient Own Medication ( Celebrate Multi- Complete 45) 1 each PO BEDTIME [facility] Ondansetron HCl (Ondansetron Odt 4 Mg Tab.Rapdis) 4 mg TRANSLINGU Q6H PRN PRN Reason: nausea Last Admin: 06/05/22 09:32 Dose: 4 mg Topiramate (Topiramate 25 Mg Tablet) 25 mg PO BID [facility] Last Admin: 06/07/22 09:07 Dose: 25 mg Allergies Allergies Allergy/AdvReac Type Severity Reaction Status Date / Time latex [LATEX] Allergy Unknown Swelling Verified 03/26/22 13:56 sulfamethoxazole Allergy Unknown Rash Verified 03/26/22 13:56 [From BACTRIM] trazodone [TRAZODONE] Allergy Unknown Insomnia Verified 03/26/22 13:56 trimethoprim [From BACTRIM] Allergy Unknown Rash Verified 03/26/22 13:56 CHOCOLATE Allergy Unknown Migraine Uncoded 03/26/22 13:56 From FLONASE Allergy Unknown Migraine Uncoded 03/26/22 13:56 Assessment & Plan Assessment & Plan (1) Mixed bipolar disorder: Status: Acute Code(s): F31.60 - Bipolar disorder, current episode mixed, unspecified (2) Chronic post-traumatic stress disorder (PTSD): Status: Acute Code(s): F43.12 - Post-traumatic stress disorder, chronic (3) S/P laparoscopic sleeve gastrectomy: Status: Acute Code(s): Z98.84 - Bariatric surgery status (4) Migraines: Status: Acute Code(s): G43.909 - Migraine, unspecified, not intractable, without status migrainosus Plan 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 -patient will stay on lithium and restart Capylta to see if this could be helpful -discussed other options such lithium and restarting Latuda but at a lower dose such as 40 mg to reduce tremor and try to make up the difference with a small amount of Depakote; Gary Gonzalez also options; possibly Wellbutin for depression 06/04 continue current tx plan Plan: CV Q 15 minute checks Continue home medication regimen including: [place] ER 750 mg (300 mg ER +450 mg ER) Restarting Capylta 42 mg daily (pt's own med); said caused burning sensation in her skin first time took it (resolved on own) Head CT: unremarkable Toradol 30 mg IM 1 time dose for chronic headache Continue topiramate rate 25 mg b.i.d. for chronic migraines (reviewed risks/side effects including kidney stone and tremor and patient is agreeable to trial) Continue to taper off Lamictal; both patient and outpatient provider think this medication has not been helpful and agreed to taper off and discontinue 05/05-continue tx. Stop caplyta due to allergic rx/ 05/06 continue tx. may start vraylar tomorrow as pt feels better physically. 05/07 continue tx. start vraylar today. Reason for contiued inpatient stay Substantial Risk for: harm to self Time Spent With Patient Time: Total time managing care of this patient today ____ minutes.
[2022-06-07] MEDS: Acetaminophen 325 MG TABLET 650 MG PO (14:46)
[2022-06-07] MEDS: Cariprazine HCl 1.5 MG CAPSULE PO (17:53)
[2022-06-07 18:00] VITALS: BP 124/65; PULSE 68; TEMP 36.5; O2SAT 97
[2022-06-07] MEDS: hydrOXYzine HCL 25 MG TABLET PO ×2 (18:04→20:27)
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
[2022-06-07] MEDS: Lithium Carbonate ER 450 MG TABLET.ER PO (20:27)
[2022-06-07] MEDS: Gabapentin 600 MG TABLET 1200 MG PO (20:27)
[2022-06-07] MEDS: Lithium Carbonate ER 300 MG TABLET.ER PO (20:27)
[2022-06-07] MEDS: lamoTRIgine 100 MG TABLET PO (20:28)
[2022-06-08 08:31] VITALS: BP 103/59; PULSE 60; TEMP 36.7; O2SAT 99
[2022-06-08] MEDS: Gabapentin 600 MG TABLET PO ×2 (09:49→16:12)
[2022-06-08] MEDS: Topiramate 25 MG TABLET PO ×2 (09:49→20:27)
[2022-06-08] MEDS: Fluticasone Propionate 100 MCG BLST.W.DEV 2 PUFF INHALE ×2 (09:50→20:27)
[2022-06-08] MEDS: hydrOXYzine HCL 25 MG TABLET PO ×2 (13:58→20:27)
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
[2022-06-08] MEDS: Cariprazine HCl 3 MG CAPSULE PO (16:12)
[2022-06-08 20:00] VITALS: BP 126/56; PULSE 80; RESP 16; TEMP 36.6; O2SAT 99
[2022-06-08] MEDS: Gabapentin 600 MG TABLET 1200 MG PO (20:26)
[2022-06-08] MEDS: Lithium Carbonate ER 450 MG TABLET.ER PO (20:26)
[2022-06-08] MEDS: lamoTRIgine 25 MG TABLET 50 MG PO (20:26)
[2022-06-08] MEDS: Lithium Carbonate ER 300 MG TABLET.ER PO (20:26)
[2022-06-09] MEDS: hydrOXYzine HCL 25 MG TABLET PO (02:21)
[2022-06-09] MEDS: Fluticasone Propionate 100 MCG BLST.W.DEV 2 PUFF INHALE (08:59)
[2022-06-09] MEDS: Gabapentin 600 MG TABLET PO (08:59)
[2022-06-09] MEDS: Topiramate 25 MG TABLET PO (08:59)
[2022-06-09 09:19] VITALS: BP 130/73; PULSE 66; RESP 16; TEMP 36.3; O2SAT 99
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
== END 2022-06-09 11:55 | disposition home or self-care (01) | DRG 753 ==
LOC: HO.ED 06-02 16:04 → HO.PADLT16 06-02 16:30
PROVIDERS: Social Worker; Admitting Provider Psychiatry & Neurology Psychiatry; Emergency Provider Emergency Medicine; PCP Family Medicine; Visit Provider Psychiatry & Neurology Psychiatry
DX: F31.60 Bipolar disorder, current episode mixed, unspecified (principal); R45.851 Suicidal ideations; F43.12 Post-traumatic stress disorder, chronic; G43.909 Migraine, unspecified, not intractable, without status migrainosus; Z20.822 Contact with and (suspected) exposure to COVID-19; Z91.040 Latex allergy status; Z88.2 Allergy status to sulfonamides; Z88.8 Allergy status to other drugs, medicaments and biological substances; Z79.51 Long term (current) use of inhaled steroids; Z98.84 Bariatric surgery status; Z79.899 Other long term (current) drug therapy
CPT/HCPCS: 36415; 70450; 80053; 80061; 80178; 80307; 82607; 83036; 84443; 85025; 87635; 93005; 99285; J1885; S9485

== ENCOUNTER 2022-07-02 14:29 | Emergency (ER) | payer BC, MEDICAID, SELFPAY ==
--- NOTE | 2022-07-02 14:33 | ED.GENADULT ---
HPI - General Adult General Chief complaint: Psychiatric Symptoms <GABRIEL Carty - Last Filed: 07/02/22 19:43> Stated complaint: crisis <GABRIEL Carty Last Filed: 07/02/22 19:43> Time Seen by Provider: 07/02/22 14:38 <GABRIEL Carty Last Filed: 07/02/22 19:43> Source: patient <GABRIEL Carty Last Filed: 07/02/22 19:43> Mode of arrival: ambulatory <GABRIEL Carty Last Filed: 07/02/22 19:43> Limitations: no limitations <GABRIEL Carty Last Filed: 07/02/22 19:43> History of Present Illness HPI narrative: Patient is a 37 year old assigned female at with a history of bipolar disorder, PTSD, and depression presenting to the emergency department today with thoughts of harming herself when faced with difficult situations. Patient states that lately when she is presented with a difficult situation, she feels thoughts of harming herself by cutting. Patient states that she is not suicidal or homicidal. Patient denies any dizziness, lightheadedness, abdominal pain, nausea, vomiting, fever, chills, blurry vision, double vision, loss of vision, chest pain, difficulty breathing, shortness of breath, back pain, night sweats, pain with urination, increased urinary frequency, increased urinary urgency, blood in her urine or stool, syncope or a near syncopal episode, recent trauma or falls, bowel incontinence, bladder incontinence, bowel retention, bladder retention, or any other complaints at this time. <GABRIEL Carty Last Filed: 07/02/22 19:43> Onset (ago): day(s) <GABRIEL Carty Last Filed: 07/02/22 19:43> Severity: mild <GABRIEL Carty Last Filed: 07/02/22 19:43> Relieving factors: none <GABRIEL Carty Last Filed: 07/02/22 19:43> Exacerbating factors: none <GABRIEL Carty Last Filed: 07/02/22 19:43> Associated symptoms: denies other symptoms <GABRIEL Carty Last Filed: 07/02/22 19:43> Treatments prior to arrival: none <GABRIEL Catry - Last Filed: 07/02/22 19:43> Related Data Home medications: Home Medications Medication Instructions Recorded Confirmed albuterol sulfate 90 mcg/actuation 2 puff inhalation Q4H PRN 06/01/22 07/02/22 aerosol inhaler Shortness Of Breath Or Wheezing cariprazine 3 mg capsule (Vraylar) 3 mg PO DAILY@1700 07/02/22 07/02/22 divalproex 250 mg tablet,extended 500 mg PO BEDTIME 07/02/22 07/02/22 release 24 hr gabapentin 600 mg tablet 1,200 mg PO BEDTIME 07/02/22 07/02/22 gabapentin 600 mg tablet 600 mg PO BID@0900,1700 07/02/22 07/02/22 hydroxyzine HCl 25 mg tablet 25 mg PO BEDTIME PRN Anxiety 07/02/22 07/02/22 topiramate 25 mg tablet 25 mg PO BID 07/02/22 07/02/22 Previous Rx's Medication Instructions Recorded fluticasone propionate 100 2 inh inhalation RBID #0 ea 06/09/22 mcg/actuation blister powder for inhalation (Flovent Diskus) <GABRIEL Carty - Last Filed: 07/02/22 19:43> Allergies/adverse reactions: Allergies Allergy/AdvReac Type Severity Reaction Status Date / Time latex [LATEX] Allergy Unknown Swelling Verified 07/02/22 14:33 sulfamethoxazole Allergy Unknown Rash Verified 07/02/22 14:33 [From BACTRIM] trazodone [TRAZODONE] Allergy Unknown Insomnia Verified 07/02/22 14:33 trimethoprim [From BACTRIM] Allergy Unknown Rash Verified 07/02/22 14:33 lumateperone AdvReac Intermediate skin Verified 07/02/22 14:33 irritation cariprazine [From Vraylar] AdvReac Sensation Verified 07/02/22 14:33 of burning skin CHOCOLATE Allergy Unknown Migraine Uncoded 07/02/22 14:33 From FLONASE Allergy Unknown Migraine Uncoded 07/02/22 14:33 <GABRIEL Carty - Last Filed: 07/02/22 19:43> Review of Systems Constitutional: Constitutional: Reports no additional constitutional complaints, Denies chills, Denies fever(s) and Denies night sweats <GABRIEL Carty - Last Filed: 07/02/22 19:43> Eyes: Eyes: Reports no additional eye complaints, Denies blurry vision, Denies change in vision, Denies diplopia, Denies eye discharge, Denies loss of vision and Denies eye pain <GABRIEL Carty - Last Filed: 07/02/22 19:43> ENT: Denies dizziness <GABRIEL Carty - Last Filed: 07/02/22 19:43> Cardiovascular: Cardiovascular: Reports no additional cardiovascular complaints, Denies chest pain, Denies lightheadedness, Denies Loss of Consciousness and Denies dyspnea <GABRIEL Carty - Last Filed: 07/02/22 19:43> Respiratory: Respiratory: Reports no additional respiratory complaints and Denies dyspnea <GABRIEL Carty - Last Filed: 07/02/22 19:43> Gastrointestinal: Gastrointestinal: Reports no additional gastrointestinal complaints, Denies abdominal pain, Denies melena, Denies hematochezia, Denies change in bowel habits and Denies change in stool character <GABRIEL Carty - Last Filed: 07/02/22 19:43> Genitourinary: Genitourinary: Denies hematuria, Denies urinary frequency, Denies dysuria, Denies urinary incontinence, Denies urinary hesitancy and Denies urinary urgency <GABRIEL Carty - Last Filed: 07/02/22 19:43> Musculoskeletal: Musculoskeletal: Reports no additional musculoskeletal complaints, Denies numbness and Denies tingling <GABRIEL Carty - Last Filed: 07/02/22 19:43> Neurologic: Denies dizziness, Denies loss of vision, Denies numbness and Denies tingling <GABRIEL Carty - Last Filed: 07/02/22 19:43> Psychiatric: Psychiatric: Reports no additional psychiatric complaints, Denies homicidal ideation and Reports suicidal ideation (cutting - not killing) <GABRIEL Carty - Last Filed: 07/02/22 19:43> Endocrine: Endocrine: Reports no additional endocrine complaints <GABRIEL Carty - Last Filed: 07/02/22 19:43> Hematologic/Lymphatic: Hematologic/Lymphatic: Reports no additional hematologic/lymphatic complaints <GABRIEL Carty - Last Filed: 07/02/22 19:43> Allergic/Immunologic: Allergic/Immunologic: Reports no additional allergic/immunologic complaints <GABRIEL Carty - Last Filed: 07/02/22 19:43> [facility] Past Medical History Attestation statement: The following information was validated with the patient. <GABRIEL Carty - Last Filed: 07/02/22 19:43> Source: old records reviewed and nursing notes reviewed <GABRIEL Carty - Last Filed: 07/02/22 19:43> Medical History: Medical History Alcohol use disorder, moderate, dependence Asthma Bipolar depression Chronic post-traumatic stress disorder (PTSD) Depression GERD (gastroesophageal reflux disease) Hemangioma Insomnia Migraines Mixed bipolar disorder Obesity Post concussion syndrome Restless leg syndrome Steatosis, liver <GABRIEL Carty - Last Filed: 07/02/22 19:43> Surgical History: Surgical History H/O gastric sleeve H/O laparoscopy History of myringotomy Hx of dilation and curettage <GABRIEL Carty - Last Filed: 07/02/22 19:43> Family History Family History: Family History Mother Mental health disorder Arthritis Thyroid condition Father Arthritis Autism Hypertension Brother No problems noted. Sister No problems noted. Son No problems noted. Daughter Autism ADHD <GABRIEL Carty - Last Filed: 07/02/22 19:43> Social History Social History: Social History Household Members: Spouse and Children Household Members Other:: AND AUTISTIC 6 YEAR OLD DAUGHTER Housing: House Are you a primary healthcare administrator to a significant other at home: No Do you presently have visiting nurse or other home services: No Alcohol intake: never Patient Tobacco Use Status: Never used Tobacco Smoked in Last 30 Days: No Use of substances other than those prescribed or required for medical reasons: No Substance Use Type: Caffiene Any prior treatment program specific to substance use: No Advance Directives: No Advance Directives Information Provided: Yes Healthcare Proxy: No Guardian: No service: No Current occupational status: unemployed Sexual orientation: Straight/Heterosexual <GABRIEL Carty - Last Filed: 07/02/22 19:43> Physical Exam ED Vital Signs: Vital Signs - 24 hr 07/02/22 14:34 07/02/22 20:08 07/03/22 05:48 Temperature 98.3 F 98.5 F 98.5 F Pulse Rate 64 52 72 Respiratory Rate 16 18 16 Blood Pressure 125/68 107/51 L 116/69 Pulse Oximetry 100 99 99 Oxygen Delivery Method Room Air Room Air Room Air BMI result Body Mass Index 30.4 <GABRIEL Carty - Last Filed: 07/02/22 19:43> Vital Signs - 24 hr 07/02/22 14:34 07/02/22 20:08 07/03/22 05:48 Temperature 98.3 F 98.5 F 98.5 F Pulse Rate 64 52 72 Respiratory Rate 16 18 16 Blood Pressure 125/68 107/51 L 116/69 Pulse Oximetry 100 99 99 Oxygen Delivery Method Room Air Room Air Room Air BMI result Body Mass Index 30.4 <Lissa Ordoñez MD - Last Filed: 07/02/22 18:48> Vital Signs - 24 hr 07/02/22 14:34 07/02/22 20:08 07/03/22 05:48 Temperature 98.3 F 98.5 F 98.5 F Pulse Rate 64 52 72 Respiratory Rate 16 18 16 Blood Pressure 125/68 107/51 L 116/69 Pulse Oximetry 100 99 99 Oxygen Delivery Method Room Air Room Air Room Air BMI result Body Mass Index 30.4 <Connie Santos MD - Last Filed: 07/03/22 08:08> Const General: cooperative, no acute distress, alert and awake <GABRIEL Carty - Last Filed: 07/02/22 19:43> Nutritional Appearance: well nourished <GABRIEL Carty - Last Filed: 07/02/22 19:43> Orientation/consciousness: patient oriented x3 <GABRIEL Carty - Last Filed: 07/02/22 19:43> Limitations: no limitations <GABRIEL Carty - Last Filed: 07/02/22 19:43> HENMT Head: Yes normal to inspection and Yes atraumatic <Esthela Villalobosdarryl SD - Last Filed: 07/02/22 19:43> Ears: hearing grossly normal bilaterally and external ears normal <Esthela Villalobosdarryl SD - Last Filed: 07/02/22 19:43> General nose exam: Normal external nose present, no nasal discharge noted and no epistaxis <Esthelasarahy Villalobosdarryl SD - Last Filed: 07/02/22 19:43> Face and sinus: Yes normal facial exam, No abrasion and No laceration <Esthelasarahy Villalobosdarryl SD - Last Filed: 07/02/22 19:43> Mouth: Normal oral and palatal mucosa present, no drooling and no muffled voice <Esthela Melgoza SD - Last Filed: 07/02/22 19:43> Eyes General: appearance normal, both eyes and all related structures <Esthela Melgoza SD - Last Filed: 07/02/22 19:43> Periorbital: periorbital findings normal <Esthela Melgoza SD - Last Filed: 07/02/22 19:43> Eyelids: Yes eyelids normal <Esthelasarahy Villalobosdarryl SD - Last Filed: 07/02/22 19:43> Conjunctivae: conjunctivae normal <Esthela Melgoza SD - Last Filed: 07/02/22 19:43> Pupils: Equal, round and reactive pupils present <Esthelasarahy Villalobosdarryl SD - Last Filed: 07/02/22 19:43> EOM: EOMs intact bilaterally <Esthela Melgoza SD - Last Filed: 07/02/22 19:43> Neck Neck: Yes normal visual inspection, Yes full ROM and Yes no lymphadenopathy <Esthela Abad SD - Last Filed: 07/02/22 19:43> Chest Chest palpation & inspection: normal inspection of the chest <GABRIEL Carty - Last Filed: 07/02/22 19:43> Resp Effort & Inspection: normal respiratory effort and able to speak in complete sentences <Esthela Melgoza SD - Last Filed: 07/02/22 19:43> Auscultation: clear to auscultation bilaterally <GABRIEL Carty - Last Filed: 07/02/22 19:43> Cardio Rate: regular rate <GABRIEL Carty Last Filed: 07/02/22 19:43> Rhythm: regular rhythm <Esthela Melgoza PA - Last Filed: 07/02/22 19:43> GI Inspection: Yes normal to inspection <Esthela Melgoza PA - Last Filed: 07/02/22 19:43> Palpation (GI): Soft to palpation, not firm, nontender and no guarding <Esthela Melgoza PA - Last Filed: 07/02/22 19:43> Neuro General: patient oriented x3 and moves all extremities <Esthela Melgoza PA - Last Filed: 07/02/22 19:43> Cranial nerves: Yes Equal, round and reactive pupils present <Esthela Melgoza PA - Last Filed: 07/02/22 19:43> Cognition (Neuro): normal cognition <Esthela Melgoza PA - Last Filed: 07/02/22 19:43> Motor exam (neuro): 5/5 motor strength present throughout <Esthela Melgoza PA - Last Filed: 07/02/22 19:43> Sensory Exam: Normal double simultaneous stimulation for sensation <Esthela Melgoza PA - Last Filed: 07/02/22 19:43> Coordination: [id number] test normal <Esthela Melgoza PA - Last Filed: 07/02/22 19:43> Extrem General: Yes normal to inspection, Yes full ROM and Yes capillary refill normal <Esthela Melgoza PA - Last Filed: 07/02/22 19:43> Psych Appearance: grossly normal <Esthela Melgoza PA - Last Filed: 07/02/22 19:43> Mental Status: mental status grossly normal <Esthela Melgoza PA - Last Filed: 07/02/22 19:43> Affect: normal affect <Esthela Melgoza PA - Last Filed: 07/02/22 19:43> Attitude: cooperative <Esthela Villalobosdarryl PA - Last Filed: 07/02/22 19:43> Thought process: Normal thought process present <Esthela Melgoza PA - Last Filed: 07/02/22 19:43> Thought content: Normal thought content present <Esthela Villalobosdarryl PA - Last Filed: 07/02/22 19:43> Insight: Limited insight present (Psych) <GABRIEL Carty - Last Filed: 07/02/22 19:43> Judgement: Limited judgement present (Psych) <GABRIEL Carty - Last Filed: 07/02/22 19:43> Course Course Course Narrative: RME performed by Estheal Melgoza PA-C. Patient is a 37 year old female presenting to the emergency department requesting psychiatric evaluation. Patient states that she has been having a hard time coping with situations without thinking of hurting herself. Patient states that she has been hospitalized twice in the last few months for similar things. Patient denies any thought of harming herself or others. <GABRIEL Carty - Last Filed: 07/02/22 19:43> Reevaluation(s) Reevaluation #1: Patient is under physician observation, stable vital sign, no events overnight reported by the nurse, under Section 12, bed search is underway, continue with physician observation. <Connie Santos MD - Last Filed: 07/03/22 08:08> Time: 08:06 <Connie Santos MD - Last Filed: 07/03/22 08:08> Medications Administered Generic Name Dose Route Start Last Admin Trade Name Freq PRN Reason Stop Dose Admin Divalproex Sodium 500 mg 07/02/22 21:00 07/02/22 22:48 Divalproex Sodium Er 500 Mg Tab.Er.24h PO Not Given BEDTIME JAZMIN <GABRIEL Carty - Last Filed: 07/02/22 19:43> Medications Administered Generic Name Dose Route Start Last Admin Trade Name Freq PRN Reason Stop Dose Admin Divalproex Sodium 500 mg 07/02/22 21:00 07/02/22 22:48 Divalproex Sodium Er 500 Mg Tab.Er.24h PO Not Given BEDTIME JAZMIN <Lissa Ordoñez MD - Last Filed: 07/02/22 18:48> Medications Administered Generic Name Dose Route Start Last Admin Trade Name Freq PRN Reason Stop Dose Admin Divalproex Sodium 500 mg 07/02/22 21:00 07/02/22 22:48 Divalproex Sodium Er 500 Mg Tab.Er.24h PO Not Given BEDTIME JAZMIN <Connie Santos MD - Last Filed: 07/03/22 08:08> Medical Decision Making Medical Decision Making [facility] Narrative: Patient is a 37 year old assigned female at with a history of PTSD, bipolar disorder, and depression presenting to the emergency department today with thoughts of hurting herself but not killing herself. Patient's physical exam was unremarkable. Patient's blood work was unremarkable. I explained my physical exam findings as well as all test results to the patient. I answered all questions asked by the patient. CARE team evaluated the patient who recommended a bed search as the patient made many suicidal statements to them. Patient will remain in the pod pending a psychiatric bed. <GABRIEL Carty - Last Filed: 07/02/22 19:43> -the care team evaluated the patient, recommendations: Bed search <Lissa Ordoñez MD - Last Filed: 07/02/22 18:48> Differential Diagnosis Differential Diagnoses: The differential diagnosis associated with the presentation includes <GABRIEL Carty - Last Filed: 07/02/22 19:43> suicidal ideation <GABRIEL Carty - Last Filed: 07/02/22 19:43> Consult Healthcare Provider Management of the patient was discussed with: Behavioral Health Provider (spoke to CARE team as noted in MDM section of this chart) <GABRIEL Carty - Last Filed: 07/02/22 19:43> Lab Data [facility] Lab Attestation statement: I reviewed the patient's lab results. <GABRIEL Carty - Last Filed: 07/02/22 19:43> Result Diagrams: 07/02/22 16:40 07/02/22 16:40 <GABRIEL Carty - Last Filed: 07/02/22 19:43> Labs: Lab Results 07/02/22 07/02/22 07/02/22 Range/Units 14:55 14:57 14:57 WBC (4.8-10.8) X10*3/uL RBC (4.20-5.50) X10*6/uL Hgb (12.0-16.0) g/dl Hct (37.0-47.0) % MCV (80.0-98.0) fL MCH (27.0-33.0) pg MCHC (31.0-35.0) g/dl RDW (11.0-16.0) % Plt Count (160-400) X10*3/uL MPV (9.4-12.3) fL Immature Gran % (Auto) (0.0-0.4) % Neut % (Auto) (45-73) % Lymph % (Auto) (20-40) % [place] % (Auto) (2-11) % Eos % (Auto) (0-4) % Baso % (Auto) (0-2) % Lymph # (Auto) (1.2-4.9) X10*3/uL [place] # (Auto) (0.1-1.2) X10*3/uL Eos # (Auto) (0.0-0.4) X10*3/uL Baso # (Auto) (0.0-0.2) X10*3/uL Abs Immat Gran (auto) (0.00-0.03) X10*3/uL Absolute Neuts (auto) (2.0-8.3) x10*3/uL Absolute Nucleated RBC (0.0-0.012) X10*3/uL Nucleated RBC % (auto) (0.0-0.2) /100WBC Sodium (135-145) mmol/L Potassium (3.3-5.1) mmol/L Chloride (96-108) mmol/L Carbon Dioxide (22-29) mmol/L Anion Gap (12-20) BUN (9-16) mg/dL Creatinine (0.5-1.4) mg/dL Estim Creat Clear Calc Estimated GFR Random Glucose (60-115) mg/dL Calcium (8.4-10.2) mg/dL Magnesium (1.6-2.6) mg/dL Total Bilirubin (0.0-1.0) mg/dL AST (5-31) U/L ALT (0-31) U/L Alkaline Phosphatase (39-117) U/L Total Protein (6.5-8.0) g/dL Albumin (3.5-5.0) g/dL Beta HCG, Quant mIU/mL Urine Color Yellow Urine Appearance Clear Urine pH 7.0 (5.0-9.0) Ur Specific [place] 1.015 (1.005-1.025) Urine Protein Negative (Neg-Trace) mg/dL Urine Glucose (UA) Negative (Negative) mg/dL Urine Ketones Trace (Negative) mg/dL Urine Blood Large (3+) H (Negative) Urine Nitrite Negative (Negative) Ur Leukocyte Esterase Negative (Negative) Urine RBC >20 H (0-2) /HPF Urine WBC 0-5 (0-5) /HPF Ur Squamous Epith Cells 0-2 (0-2) /HPF Urine Bacteria None Seen (None Seen) Hyaline Casts 0-2 (0-2) /LPF Urine Opiates Screen Not Detected (Not Detect) Urine Fentanyl Screen Not Detected (Not Detect) Ur Barbiturates Screen Not Detected (Not Detect) Valproic Acid (50.0-100.0) mcg/mL Ur Phencyclidine Scrn Not Detected (Not Detect) Ur Amphetamines Screen Not Detected (Not Detect) U Benzodiazepines Scrn Not Detected (Not Detect) Urine Cocaine Screen Not Detected (Not Detect) U Marijuana (THC) Screen Not Detected (Not Detect) Ethyl Alcohol mg/dL COVID-19 (SHAD) Negative (Negative) COVID-19 Clin Com See Note 07/02/22 07/02/22 07/02/22 Range/Units 16:40 16:40 16:40 WBC 3.8 L (4.8-10.8) X10*3/uL RBC 4.61 (4.20-5.50) X10*6/uL Hgb 13.0 (12.0-16.0) g/dl Hct 40.2 (37.0-47.0) % MCV 87.2 (80.0-98.0) fL MCH 28.2 (27.0-33.0) pg MCHC 32.3 (31.0-35.0) g/dl RDW 13.8 (11.0-16.0) % Plt Count 126 L D (160-400) X10*3/uL MPV 10.8 (9.4-12.3) fL Immature Gran % (Auto) 0.3 (0.0-0.4) % Neut % (Auto) 45.4 (45-73) % Lymph % (Auto) 43.4 H (20-40) % [place] % (Auto) 9.0 (2-11) % Eos % (Auto) 1.6 (0-4) % Baso % (Auto) 0.3 (0-2) % Lymph # (Auto) 1.6 (1.2-4.9) X10*3/uL [place] # (Auto) 0.3 (0.1-1.2) X10*3/uL Eos # (Auto) 0.1 (0.0-0.4) X10*3/uL Baso # (Auto) 0.0 (0.0-0.2) X10*3/uL Abs Immat Gran (auto) 0.01 (0.00-0.03) X10*3/uL Absolute Neuts (auto) 1.7 L (2.0-8.3) x10*3/uL Absolute Nucleated RBC 0.000 (0.0-0.012) X10*3/uL Nucleated RBC % (auto) 0.0 (0.0-0.2) /100WBC Sodium 141 (135-145) mmol/L Potassium 4.1 (3.3-5.1) mmol/L Chloride 108 (96-108) mmol/L Carbon Dioxide 27 (22-29) mmol/L Anion Gap 10 L (12-20) BUN 11 (9-16) mg/dL Creatinine 0.78 (0.5-1.4) mg/dL Estim Creat Clear Calc 107.9 Estimated GFR > 60 Random Glucose 83 (60-115) mg/dL Calcium 9.1 (8.4-10.2) mg/dL Magnesium 1.9 (1.6-2.6) mg/dL Total Bilirubin 0.2 (0.0-1.0) mg/dL AST 17 (5-31) U/L ALT 14 (0-31) U/L Alkaline Phosphatase 75 (39-117) U/L Total Protein 6.2 L (6.5-8.0) g/dL Albumin 3.9 (3.5-5.0) g/dL Beta HCG, Quant mIU/mL Urine Color Urine Appearance Urine pH (5.0-9.0) Ur Specific [place] (1.005-1.025) Urine Protein (Neg-Trace) mg/dL Urine Glucose (UA) (Negative) mg/dL Urine Ketones (Negative) mg/dL Urine Blood (Negative) Urine Nitrite (Negative) Ur Leukocyte Esterase (Negative) Urine RBC (0-2) /HPF Urine WBC (0-5) /HPF Ur Squamous Epith Cells (0-2) /HPF Urine Bacteria (None Seen) Hyaline Casts (0-2) /LPF Urine Opiates Screen (Not Detect) Urine Fentanyl Screen (Not Detect) Ur Barbiturates Screen (Not Detect) Valproic Acid 46.1 L (50.0-100.0) mcg/mL Ur Phencyclidine Scrn (Not Detect) Ur Amphetamines Screen (Not Detect) U Benzodiazepines Scrn (Not Detect) Urine Cocaine Screen (Not Detect) U Marijuana (THC) Screen (Not Detect) Ethyl Alcohol < 10 mg/dL COVID-19 (SHAD) (Negative) COVID-19 Clin Com 07/02/22 Range/Units 16:40 WBC (4.8-10.8) X10*3/uL RBC (4.20-5.50) X10*6/uL Hgb (12.0-16.0) g/dl Hct (37.0-47.0) % MCV (80.0-98.0) fL MCH (27.0-33.0) pg MCHC (31.0-35.0) g/dl RDW (11.0-16.0) % Plt Count (160-400) X10*3/uL MPV (9.4-12.3) fL Immature Gran % (Auto) (0.0-0.4) % Neut % (Auto) (45-73) % Lymph % (Auto) (20-40) % [place] % (Auto) (2-11) % Eos % (Auto) (0-4) % Baso % (Auto) (0-2) % Lymph # (Auto) (1.2-4.9) X10*3/uL [place] # (Auto) (0.1-1.2) X10*3/uL Eos # (Auto) (0.0-0.4) X10*3/uL Baso # (Auto) (0.0-0.2) X10*3/uL Abs Immat Gran (auto) (0.00-0.03) X10*3/uL Absolute Neuts (auto) (2.0-8.3) x10*3/uL Absolute Nucleated RBC (0.0-0.012) X10*3/uL Nucleated RBC % (auto) (0.0-0.2) /100WBC Sodium (135-145) mmol/L Potassium (3.3-5.1) mmol/L Chloride (96-108) mmol/L Carbon Dioxide (22-29) mmol/L Anion Gap (12-20) BUN (9-16) mg/dL Creatinine (0.5-1.4) mg/dL Estim Creat Clear Calc Estimated GFR Random Glucose (60-115) mg/dL Calcium (8.4-10.2) mg/dL Magnesium (1.6-2.6) mg/dL Total Bilirubin (0.0-1.0) mg/dL AST (5-31) U/L ALT (0-31) U/L Alkaline Phosphatase (39-117) U/L Total Protein (6.5-8.0) g/dL Albumin (3.5-5.0) g/dL Beta HCG, Quant < 2 mIU/mL Urine Color Urine Appearance Urine pH (5.0-9.0) Ur Specific [place] (1.005-1.025) Urine Protein (Neg-Trace) mg/dL Urine Glucose (UA) (Negative) mg/dL Urine Ketones (Negative) mg/dL Urine Blood (Negative) Urine Nitrite (Negative) Ur Leukocyte Esterase (Negative) Urine RBC (0-2) /HPF Urine WBC (0-5) /HPF Ur Squamous Epith Cells (0-2) /HPF Urine Bacteria (None Seen) Hyaline Casts (0-2) /LPF Urine Opiates Screen (Not Detect) Urine Fentanyl Screen (Not Detect) Ur Barbiturates Screen (Not Detect) Valproic Acid (50.0-100.0) mcg/mL Ur Phencyclidine Scrn (Not Detect) Ur Amphetamines Screen (Not Detect) U Benzodiazepines Scrn (Not Detect) Urine Cocaine Screen (Not Detect) U Marijuana (THC) Screen (Not Detect) Ethyl Alcohol mg/dL COVID-19 (SHAD) (Negative) COVID-19 Clin Com <GABRIEL Carty - Last Filed: 07/02/22 19:43> Lab Results 07/02/22 07/02/22 07/02/22 Range/Units 14:55 14:57 14:57 WBC (4.8-10.8) X10*3/uL RBC (4.20-5.50) X10*6/uL Hgb (12.0-16.0) g/dl Hct (37.0-47.0) % MCV (80.0-98.0) fL MCH (27.0-33.0) pg MCHC (31.0-35.0) g/dl RDW (11.0-16.0) % Plt Count (160-400) X10*3/uL MPV (9.4-12.3) fL Immature Gran % (Auto) (0.0-0.4) % Neut % (Auto) (45-73) % Lymph % (Auto) (20-40) % [place] % (Auto) (2-11) % Eos % (Auto) (0-4) % Baso % (Auto) (0-2) % Lymph # (Auto) (1.2-4.9) X10*3/uL [place] # (Auto) (0.1-1.2) X10*3/uL Eos # (Auto) (0.0-0.4) X10*3/uL Baso # (Auto) (0.0-0.2) X10*3/uL Abs Immat Gran (auto) (0.00-0.03) X10*3/uL Absolute Neuts (auto) (2.0-8.3) x10*3/uL Absolute Nucleated RBC (0.0-0.012) X10*3/uL Nucleated RBC % (auto) (0.0-0.2) /100WBC Sodium (135-145) mmol/L Potassium (3.3-5.1) mmol/L Chloride (96-108) mmol/L Carbon Dioxide (22-29) mmol/L Anion Gap (12-20) BUN (9-16) mg/dL Creatinine (0.5-1.4) mg/dL Estim Creat Clear Calc Estimated GFR Random Glucose (60-115) mg/dL Calcium (8.4-10.2) mg/dL Magnesium (1.6-2.6) mg/dL Total Bilirubin (0.0-1.0) mg/dL AST (5-31) U/L ALT (0-31) U/L Alkaline Phosphatase (39-117) U/L Total Protein (6.5-8.0) g/dL Albumin (3.5-5.0) g/dL Beta HCG, Quant mIU/mL Urine Color Yellow Urine Appearance Clear Urine pH 7.0 (5.0-9.0) Ur Specific [place] 1.015 (1.005-1.025) Urine Protein Negative (Neg-Trace) mg/dL Urine Glucose (UA) Negative (Negative) mg/dL Urine Ketones Trace (Negative) mg/dL Urine Blood Large (3+) H (Negative) Urine Nitrite Negative (Negative) Ur Leukocyte Esterase Negative (Negative) Urine RBC >20 H (0-2) /HPF Urine WBC 0-5 (0-5) /HPF Ur Squamous Epith Cells 0-2 (0-2) /HPF Urine Bacteria None Seen (None Seen) Hyaline Casts 0-2 (0-2) /LPF Urine Opiates Screen Not Detected (Not Detect) Urine Fentanyl Screen Not Detected (Not Detect) Ur Barbiturates Screen Not Detected (Not Detect) Valproic Acid (50.0-100.0) mcg/mL Ur Phencyclidine Scrn Not Detected (Not Detect) Ur Amphetamines Screen Not Detected (Not Detect) U Benzodiazepines Scrn Not Detected (Not Detect) Urine Cocaine Screen Not Detected (Not Detect) U Marijuana (THC) Screen Not Detected (Not Detect) Ethyl Alcohol mg/dL COVID-19 (SHAD) Negative (Negative) COVID-19 Clin Com See Note 07/02/22 07/02/22 07/02/22 Range/Units 16:40 16:40 16:40 WBC 3.8 L (4.8-10.8) X10*3/uL RBC 4.61 (4.20-5.50) X10*6/uL Hgb 13.0 (12.0-16.0) g/dl Hct 40.2 (37.0-47.0) % MCV 87.2 (80.0-98.0) fL MCH 28.2 (27.0-33.0) pg MCHC 32.3 (31.0-35.0) g/dl RDW 13.8 (11.0-16.0) % Plt Count 126 L D (160-400) X10*3/uL MPV 10.8 (9.4-12.3) fL Immature Gran % (Auto) 0.3 (0.0-0.4) % Neut % (Auto) 45.4 (45-73) % Lymph % (Auto) 43.4 H (20-40) % [place] % (Auto) 9.0 (2-11) % Eos % (Auto) 1.6 (0-4) % Baso % (Auto) 0.3 (0-2) % Lymph # (Auto) 1.6 (1.2-4.9) X10*3/uL [place] # (Auto) 0.3 (0.1-1.2) X10*3/uL Eos # (Auto) 0.1 (0.0-0.4) X10*3/uL Baso # (Auto) 0.0 (0.0-0.2) X10*3/uL Abs Immat Gran (auto) 0.01 (0.00-0.03) X10*3/uL Absolute Neuts (auto) 1.7 L (2.0-8.3) x10*3/uL Absolute Nucleated RBC 0.000 (0.0-0.012) X10*3/uL Nucleated RBC % (auto) 0.0 (0.0-0.2) /100WBC Sodium 141 (135-145) mmol/L Potassium 4.1 (3.3-5.1) mmol/L Chloride 108 (96-108) mmol/L Carbon Dioxide 27 (22-29) mmol/L Anion Gap 10 L (12-20) BUN 11 (9-16) mg/dL Creatinine 0.78 (0.5-1.4) mg/dL Estim Creat Clear Calc 107.9 Estimated GFR > 60 Random Glucose 83 (60-115) mg/dL Calcium 9.1 (8.4-10.2) mg/dL Magnesium 1.9 (1.6-2.6) mg/dL Total Bilirubin 0.2 (0.0-1.0) mg/dL AST 17 (5-31) U/L ALT 14 (0-31) U/L Alkaline Phosphatase 75 (39-117) U/L Total Protein 6.2 L (6.5-8.0) g/dL Albumin 3.9 (3.5-5.0) g/dL Beta HCG, Quant mIU/mL Urine Color Urine Appearance Urine pH (5.0-9.0) Ur Specific [place] (1.005-1.025) Urine Protein (Neg-Trace) mg/dL Urine Glucose (UA) (Negative) mg/dL Urine Ketones (Negative) mg/dL Urine Blood (Negative) Urine Nitrite (Negative) Ur Leukocyte Esterase (Negative) Urine RBC (0-2) /HPF Urine WBC (0-5) /HPF Ur Squamous Epith Cells (0-2) /HPF Urine Bacteria (None Seen) Hyaline Casts (0-2) /LPF Urine Opiates Screen (Not Detect) Urine Fentanyl Screen (Not Detect) Ur Barbiturates Screen (Not Detect) Valproic Acid 46.1 L (50.0-100.0) mcg/mL Ur Phencyclidine Scrn (Not Detect) Ur Amphetamines Screen (Not Detect) U Benzodiazepines Scrn (Not Detect) Urine Cocaine Screen (Not Detect) U Marijuana (THC) Screen (Not Detect) Ethyl Alcohol < 10 mg/dL COVID-19 (SHAD) (Negative) COVID-19 Clin Com 07/02/22 Range/Units 16:40 WBC (4.8-10.8) X10*3/uL RBC (4.20-5.50) X10*6/uL Hgb (12.0-16.0) g/dl Hct (37.0-47.0) % MCV (80.0-98.0) fL MCH (27.0-33.0) pg MCHC (31.0-35.0) g/dl RDW (11.0-16.0) % Plt Count (160-400) X10*3/uL MPV (9.4-12.3) fL Immature Gran % (Auto) (0.0-0.4) % Neut % (Auto) (45-73) % Lymph % (Auto) (20-40) % [place] % (Auto) (2-11) % Eos % (Auto) (0-4) % Baso % (Auto) (0-2) % Lymph # (Auto) (1.2-4.9) X10*3/uL [place] # (Auto) (0.1-1.2) X10*3/uL Eos # (Auto) (0.0-0.4) X10*3/uL Baso # (Auto) (0.0-0.2) X10*3/uL Abs Immat Gran (auto) (0.00-0.03) X10*3/uL Absolute Neuts (auto) (2.0-8.3) x10*3/uL Absolute Nucleated RBC (0.0-0.012) X10*3/uL Nucleated RBC % (auto) (0.0-0.2) /100WBC Sodium (135-145) mmol/L Potassium (3.3-5.1) mmol/L Chloride (96-108) mmol/L Carbon Dioxide (22-29) mmol/L Anion Gap (12-20) BUN (9-16) mg/dL Creatinine (0.5-1.4) mg/dL Estim Creat Clear Calc Estimated GFR Random Glucose (60-115) mg/dL Calcium (8.4-10.2) mg/dL Magnesium (1.6-2.6) mg/dL Total Bilirubin (0.0-1.0) mg/dL AST (5-31) U/L ALT (0-31) U/L Alkaline Phosphatase (39-117) U/L Total Protein (6.5-8.0) g/dL Albumin (3.5-5.0) g/dL Beta HCG, Quant < 2 mIU/mL Urine Color Urine Appearance Urine pH (5.0-9.0) Ur Specific [place] (1.005-1.025) Urine Protein (Neg-Trace) mg/dL Urine Glucose (UA) (Negative) mg/dL Urine Ketones (Negative) mg/dL Urine Blood (Negative) Urine Nitrite (Negative) Ur Leukocyte Esterase (Negative) Urine RBC (0-2) /HPF Urine WBC (0-5) /HPF Ur Squamous Epith Cells (0-2) /HPF Urine Bacteria (None Seen) Hyaline Casts (0-2) /LPF Urine Opiates Screen (Not Detect) Urine Fentanyl Screen (Not Detect) Ur Barbiturates Screen (Not Detect) Valproic Acid (50.0-100.0) mcg/mL Ur Phencyclidine Scrn (Not Detect) Ur Amphetamines Screen (Not Detect) U Benzodiazepines Scrn (Not Detect) Urine Cocaine Screen (Not Detect) U Marijuana (THC) Screen (Not Detect) Ethyl Alcohol mg/dL COVID-19 (SHAD) (Negative) COVID-19 Clin Com <Lissa Ordoñez MD - Last Filed: 07/02/22 18:48> Lab Results 07/02/22 07/02/22 07/02/22 Range/Units 14:55 14:57 14:57 WBC (4.8-10.8) X10*3/uL RBC (4.20-5.50) X10*6/uL Hgb (12.0-16.0) g/dl Hct (37.0-47.0) % MCV (80.0-98.0) fL MCH (27.0-33.0) pg MCHC (31.0-35.0) g/dl RDW (11.0-16.0) % Plt Count (160-400) X10*3/uL MPV (9.4-12.3) fL Immature Gran % (Auto) (0.0-0.4) % Neut % (Auto) (45-73) % Lymph % (Auto) (20-40) % [place] % (Auto) (2-11) % Eos % (Auto) (0-4) % Baso % (Auto) (0-2) % Lymph # (Auto) (1.2-4.9) X10*3/uL [place] # (Auto) (0.1-1.2) X10*3/uL Eos # (Auto) (0.0-0.4) X10*3/uL Baso # (Auto) (0.0-0.2) X10*3/uL Abs Immat Gran (auto) (0.00-0.03) X10*3/uL Absolute Neuts (auto) (2.0-8.3) x10*3/uL Absolute Nucleated RBC (0.0-0.012) X10*3/uL Nucleated RBC % (auto) (0.0-0.2) /100WBC Sodium (135-145) mmol/L Potassium (3.3-5.1) mmol/L Chloride (96-108) mmol/L Carbon Dioxide (22-29) mmol/L Anion Gap (12-20) BUN (9-16) mg/dL Creatinine (0.5-1.4) mg/dL Estim Creat Clear Calc Estimated GFR Random Glucose (60-115) mg/dL Calcium (8.4-10.2) mg/dL Magnesium (1.6-2.6) mg/dL Total Bilirubin (0.0-1.0) mg/dL AST (5-31) U/L ALT (0-31) U/L Alkaline Phosphatase (39-117) U/L Total Protein (6.5-8.0) g/dL Albumin (3.5-5.0) g/dL Beta HCG, Quant mIU/mL Urine Color Yellow Urine Appearance Clear Urine pH 7.0 (5.0-9.0) Ur Specific [place] 1.015 (1.005-1.025) Urine Protein Negative (Neg-Trace) mg/dL Urine Glucose (UA) Negative (Negative) mg/dL Urine Ketones Trace (Negative) mg/dL Urine Blood Large (3+) H (Negative) Urine Nitrite Negative (Negative) Ur Leukocyte Esterase Negative (Negative) Urine RBC >20 H (0-2) /HPF Urine WBC 0-5 (0-5) /HPF Ur Squamous Epith Cells 0-2 (0-2) /HPF Urine Bacteria None Seen (None Seen) Hyaline Casts 0-2 (0-2) /LPF Urine Opiates Screen Not Detected (Not Detect) Urine Fentanyl Screen Not Detected (Not Detect) Ur Barbiturates Screen Not Detected (Not Detect) Valproic Acid (50.0-100.0) mcg/mL Ur Phencyclidine Scrn Not Detected (Not Detect) Ur Amphetamines Screen Not Detected (Not Detect) U Benzodiazepines Scrn Not Detected (Not Detect) Urine Cocaine Screen Not Detected (Not Detect) U Marijuana (THC) Screen Not Detected (Not Detect) Ethyl Alcohol mg/dL COVID-19 (SHAD) Negative (Negative) COVID-19 Clin Com See Note 07/02/22 07/02/22 07/02/22 Range/Units 16:40 16:40 16:40 WBC 3.8 L (4.8-10.8) X10*3/uL RBC 4.61 (4.20-5.50) X10*6/uL Hgb 13.0 (12.0-16.0) g/dl Hct 40.2 (37.0-47.0) % MCV 87.2 (80.0-98.0) fL MCH 28.2 (27.0-33.0) pg MCHC 32.3 (31.0-35.0) g/dl RDW 13.8 (11.0-16.0) % Plt Count 126 L D (160-400) X10*3/uL MPV 10.8 (9.4-12.3) fL Immature Gran % (Auto) 0.3 (0.0-0.4) % Neut % (Auto) 45.4 (45-73) % Lymph % (Auto) 43.4 H (20-40) % [place] % (Auto) 9.0 (2-11) % Eos % (Auto) 1.6 (0-4) % Baso % (Auto) 0.3 (0-2) % Lymph # (Auto) 1.6 (1.2-4.9) X10*3/uL [place] # (Auto) 0.3 (0.1-1.2) X10*3/uL Eos # (Auto) 0.1 (0.0-0.4) X10*3/uL Baso # (Auto) 0.0 (0.0-0.2) X10*3/uL Abs Immat Gran (auto) 0.01 (0.00-0.03) X10*3/uL Absolute Neuts (auto) 1.7 L (2.0-8.3) x10*3/uL Absolute Nucleated RBC 0.000 (0.0-0.012) X10*3/uL Nucleated RBC % (auto) 0.0 (0.0-0.2) /100WBC Sodium 141 (135-145) mmol/L Potassium 4.1 (3.3-5.1) mmol/L Chloride 108 (96-108) mmol/L Carbon Dioxide 27 (22-29) mmol/L Anion Gap 10 L (12-20) BUN 11 (9-16) mg/dL Creatinine 0.78 (0.5-1.4) mg/dL Estim Creat Clear Calc 107.9 Estimated GFR > 60 Random Glucose 83 (60-115) mg/dL Calcium 9.1 (8.4-10.2) mg/dL Magnesium 1.9 (1.6-2.6) mg/dL Total Bilirubin 0.2 (0.0-1.0) mg/dL AST 17 (5-31) U/L ALT 14 (0-31) U/L Alkaline Phosphatase 75 (39-117) U/L Total Protein 6.2 L (6.5-8.0) g/dL Albumin 3.9 (3.5-5.0) g/dL Beta HCG, Quant mIU/mL Urine Color Urine Appearance Urine pH (5.0-9.0) Ur Specific [place] (1.005-1.025) Urine Protein (Neg-Trace) mg/dL Urine Glucose (UA) (Negative) mg/dL Urine Ketones (Negative) mg/dL Urine Blood (Negative) Urine Nitrite (Negative) Ur Leukocyte Esterase (Negative) Urine RBC (0-2) /HPF Urine WBC (0-5) /HPF Ur Squamous Epith Cells (0-2) /HPF Urine Bacteria (None Seen) Hyaline Casts (0-2) /LPF Urine Opiates Screen (Not Detect) Urine Fentanyl Screen (Not Detect) Ur Barbiturates Screen (Not Detect) Valproic Acid 46.1 L (50.0-100.0) mcg/mL Ur Phencyclidine Scrn (Not Detect) Ur Amphetamines Screen (Not Detect) U Benzodiazepines Scrn (Not Detect) Urine Cocaine Screen (Not Detect) U Marijuana (THC) Screen (Not Detect) Ethyl Alcohol < 10 mg/dL COVID-19 (SHAD) (Negative) COVID-19 Clin Com 07/02/22 Range/Units 16:40 WBC (4.8-10.8) X10*3/uL RBC (4.20-5.50) X10*6/uL Hgb (12.0-16.0) g/dl Hct (37.0-47.0) % MCV (80.0-98.0) fL MCH (27.0-33.0) pg MCHC (31.0-35.0) g/dl RDW (11.0-16.0) % Plt Count (160-400) X10*3/uL MPV (9.4-12.3) fL Immature Gran % (Auto) (0.0-0.4) % Neut % (Auto) (45-73) % Lymph % (Auto) (20-40) % [place] % (Auto) (2-11) % Eos % (Auto) (0-4) % Baso % (Auto) (0-2) % Lymph # (Auto) (1.2-4.9) X10*3/uL [place] # (Auto) (0.1-1.2) X10*3/uL Eos # (Auto) (0.0-0.4) X10*3/uL Baso # (Auto) (0.0-0.2) X10*3/uL Abs Immat Gran (auto) (0.00-0.03) X10*3/uL Absolute Neuts (auto) (2.0-8.3) x10*3/uL Absolute Nucleated RBC (0.0-0.012) X10*3/uL Nucleated RBC % (auto) (0.0-0.2) /100WBC Sodium (135-145) mmol/L Potassium (3.3-5.1) mmol/L Chloride (96-108) mmol/L Carbon Dioxide (22-29) mmol/L Anion Gap (12-20) BUN (9-16) mg/dL Creatinine (0.5-1.4) mg/dL Estim Creat Clear Calc Estimated GFR Random Glucose (60-115) mg/dL Calcium (8.4-10.2) mg/dL Magnesium (1.6-2.6) mg/dL Total Bilirubin (0.0-1.0) mg/dL AST (5-31) U/L ALT (0-31) U/L Alkaline Phosphatase (39-117) U/L Total Protein (6.5-8.0) g/dL Albumin (3.5-5.0) g/dL Beta HCG, Quant < 2 mIU/mL Urine Color Urine Appearance Urine pH (5.0-9.0) Ur Specific [place] (1.005-1.025) Urine Protein (Neg-Trace) mg/dL Urine Glucose (UA) (Negative) mg/dL Urine Ketones (Negative) mg/dL Urine Blood (Negative) Urine Nitrite (Negative) Ur Leukocyte Esterase (Negative) Urine RBC (0-2) /HPF Urine WBC (0-5) /HPF Ur Squamous Epith Cells (0-2) /HPF Urine Bacteria (None Seen) Hyaline Casts (0-2) /LPF Urine Opiates Screen (Not Detect) Urine Fentanyl Screen (Not Detect) Ur Barbiturates Screen (Not Detect) Valproic Acid (50.0-100.0) mcg/mL Ur Phencyclidine Scrn (Not Detect) Ur Amphetamines Screen (Not Detect) U Benzodiazepines Scrn (Not Detect) Urine Cocaine Screen (Not Detect) U Marijuana (THC) Screen (Not Detect) Ethyl Alcohol mg/dL COVID-19 (SHAD) (Negative) COVID-19 Clin Com <Connie Santos MD - Last Filed: 07/03/22 08:08> Discharge Plan Discharge Clinical Impression: Bipolar disorder, Chronic post-traumatic stress disorder (PTSD), Depression <GABRIEL Carty - Last Filed: 07/02/22 19:43> Patient Disposition: Still a Patient <GABRIEL Carty - Last Filed: 07/02/22 19:43> Prescriptions: No Action divalproex 250 mg tablet extended release 24 hr 500 mg PO BEDTIME gabapentin 600 mg tablet 600 mg PO BID@0900,1700 gabapentin 600 mg tablet 1,200 mg PO BEDTIME topiramate 25 mg tablet 25 mg PO BID hydroxyzine HCl 25 mg tablet 25 mg PO BEDTIME PRN (Reason: Anxiety) Vraylar 3 mg capsule 3 mg PO DAILY@1700 albuterol sulfate 90 mcg/actuation HFA aerosol inhaler 2 puff inhalation Q4H PRN (Reason: Shortness Of Breath Or Wheezing) Flovent Diskus 100 mcg/actuation Blister With Device 2 inh inhalation RBID Qty: 0 0RF <GABRIEL Carty - Last Filed: 07/02/22 19:43> Interventions: Lewis-Suicide Risk Severity Scale Last Done: 07/03/22 05:38 <GABRIEL Carty - Last Filed: 07/02/22 19:43>
[2022-07-02 14:34] VITALS: BP 125/68; PULSE 64; RESP 16; TEMP 36.8; O2SAT 100; BMI 30.4
[2022-07-02 15:07] LABS: Appearance Urine Clear; Color Urine Yellow; Glucose Urine UA Negative (Negative); Leukocyte Esterase Urine Negative (Negative); Nitrite Urine Negative (Negative); Specific Gravity - Urine 1.015 (1.005-1.025); UMIC TRIGGER UACC YES; Urine Blood Large (3+) (Negative); Urine Ketones Trace mg/dL (Negative); Urine Protein Negative (Neg-Trace)
[2022-07-02 15:10] LABS: Bacteria Urine None Seen (None Seen); Hyaline Casts Urine 0-2 /LPF (0-2); RBC Urine >20 /HPF (0-2); Squamous Epithelial Cell Urine 0-2 /HPF (0-2); WBC Urine 0-5 /HPF (0-5)
[2022-07-02 15:15] LABS: Amphetamine Screen Urine Not Detected (Not Detect); Barbiturates, Urine Not Detected (Not Detect); Benzodiazepines Screen Urine Not Detected (Not Detect); Cannabinoid Screen Urine Not Detected (Not Detect); Cocaine Screen Urine Not Detected (Not Detect); Fentanyl, urine Not Detected (Not Detect); Opiate Screen Urine Not Detected (Not Detect); Phencyclidine Screen Urine Not Detected (Not Detect)
[2022-07-02 15:34] LABS: COVID-19 Test Negative (Negative); IDNOW Serial# 08D9AD1C
[2022-07-02 16:50] LABS: Basophils Percent Auto 0.3 % (0-2); Imm Gran Abs Auto 0.01 X10*3/uL (0.00-0.03); Imm Gran Pct Auto 0.3 % (0.0-0.4); Mean Platelet Volume 10.8 fL (9.4-12.3); PLT CLUMP 1; Red Cell Distribution Width 13.8 % (11.0-16.0); SCAN SMEAR FLAG 1
[2022-07-02 16:52] LABS: Eosinophils Absolute Auto 0.1 X10*3/uL (0.0-0.4); Eosinophils Percent Auto 1.6 % (0-4); Hematocrit 40.2 % (37.0-47.0); Lymphocytes Absolute Auto 1.6 X10*3/uL (1.2-4.9); Lymphocytes Percent Auto 43.4 % (20-40); Mean Corpuscular HGB Conc 32.3 g/dl (31.0-35.0); Mean Corpuscular Hemoglobin 28.2 pg (27.0-33.0); Mean Corpuscular Volume 87.2 fL (80.0-98.0); Monocytes Absolute Auto 0.3 X10*3/uL (0.1-1.2); Neutrophils Absolute Auto 1.7 x10*3/uL (2.0-8.3); Neutrophils Percent Auto 45.4 % (45-73); Red Blood Count 4.61 X10*6/uL (4.20-5.50)
[2022-07-02 17:00] LABS: Valproate 46.1 mcg/mL (50.0-100.0)
[2022-07-02 17:02] LABS: MANUAL DIFF FLAG NO; Platelet Count 126 X10*3/uL (160-400); White Blood Count 3.8 X10*3/uL (4.8-10.8)
[2022-07-02 17:03] LABS: Alanine Aminotransferase 14 U/L (0-31); Albumin Level 3.9 g/dL (3.5-5.0); Alkaline Phosphatase 75 U/L (39-117); Anion Gap 10 (12-20); Aspartate Amino Transferase 17 U/L (5-31); Bilirubin Total 0.2 mg/dL (0.0-1.0); Blood Urea Nitrogen 11 mg/dL (9-16); Calcium 9.1 mg/dL (8.4-10.2); Carbon Dioxide 27 mmol/L (22-29); Chloride 108 mmol/L (96-108); Creatinine Clr Calc Pharmacy 107.9; Estimated Glomerular Filt Rate > 60; Glucose Random 83 mg/dL (60-115); Magnesium 1.9 mg/dL (1.6-2.6); Potassium 4.1 mmol/L (3.3-5.1); Sodium 141 mmol/L (135-145); Total Protein 6.2 g/dL (6.5-8.0)
[2022-07-02 17:13] LABS: HCG Quantitative < 2 mIU/mL
[2022-07-02 20:08] VITALS: BP 107/51; PULSE 52; RESP 18; TEMP 36.9; O2SAT 99
[2022-07-03 00:43] LABS: Ethanol < 10 mg/dL
[2022-07-03 05:48] VITALS: BP 116/69; PULSE 72; RESP 16; TEMP 36.9; O2SAT 99
--- NOTE | 2022-07-03 06:44 | PC.NURSE ---
Patient slept through the night, no distress observed/reported, patient requested the discharge but declined by provider due to sucidality and patient was placed on section 12immediately, patient disposition per care team is inpatient bed search however psych consult was ordered to review for discharge by psychiatrist, IRENE, kaylene rec completed/Mar active, behavior non concerning, will continue to monitor
--- NOTE | 2022-07-03 08:19 | PC.NURSE ---
patient does not take Topiramate or Vraljar at this time. I called pharmacy and they will discontinued.. Depakote is 750mg not what is in the MAR currently.
--- NOTE | 2022-07-03 08:19 | HE.PHANOTE ---
RN called to have patients home medication of vraylar and topiramate dc/d as she spoke to patient and patient stated they are no longer taking those.
[2022-07-03] MEDS: Gabapentin 600 MG TABLET PO (08:28)
[2022-07-03 13:31] VITALS: BP 120/69; PULSE 63; RESP 16; TEMP 36.8; O2SAT 100
--- NOTE | 2022-07-03 14:44 | MHC.CARE ---
Pt seen for psych consult by Dr. Reji Ford and was cleared for discharge. PHP notified, she will return to program on Tuesday and CARE team will call Jeana to check in on her status tomorrow.
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
== END 2022-07-03 14:54 | disposition home or self-care (01) ==
PROVIDERS: Physician Assistant Medical; Emergency Provider Emergency Medicine
DX: F43.12 Post-traumatic stress disorder, chronic (principal); F33.1 Major depressive disorder, recurrent, moderate; Z20.822 Contact with and (suspected) exposure to COVID-19; Z20.828 Contact with and (suspected) exposure to other viral communicable diseases; Z79.899 Other long term (current) drug therapy
CPT/HCPCS: 36415; 80053; 80164; 80307; 81001; 81003; 82077; 83735; 84702; 85025; 87635; 99284; S9485

== ENCOUNTER 2022-07-14 10:15 | Outpatient (RCR) | payer BC, MEDICAID, SELFPAY ==
[2022-06-25 11:43] VITALS: BP 132/78; PULSE 68; TEMP 37.4
[2022-06-25 12:02] VITALS: BMI 30.8
--- NOTE | 2022-06-25 14:11 | PC.ADMIT ---
Patient is a 37 year old female who was referred to [facility] by [facility] unit where she was admitted d/t severe depression and anxiety sxs secondary to life stressors including family stresses, [id number] recent suicide, medical issues with recent dx of concussion, and having a special needs child. Patient stated she has an appointment with a concussion center for f/u treatment starting in July 2022. Patient is alert and oriented x4. Calm and cooperative. Presented with depressed mood and anxious affect. Reports passive SI, denied plan or intent. Reports her children are her protective factor. I gave Jeana a copy of her safety plan if needed and reviewed safety plan with her. Medications reconciled with patient and inpatient d/c medical record. Patient stated her prescriber Dr Mariama Hunt made medication changes since hospitalization including discontinuing Vraylar d/t side effects, along with Lamictal and Topiramate. Started new medication Depakote. Decreased Sunrise from 750 mg to 600 mg, Hydroxyzine increased to 25 mg QID PRN for anxiety in addition to scheduled dose at HS. Patient reports she is taking medications as prescribed. Patient plans to call her PCP who prescribed her migraine medication to get it refilled.
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
--- NOTE | 2022-06-30 13:34 | PC.NURSE ---
Jeana reported she had some medication changes with a prescriber she saw yesterday including increased dose of Depakote to 750 mg at HS, added Nurtec and Zofran. Patient has a history of migraines with nausea and vomiting. She reports she is unable to go on her previous migraine medication as her insurance stopped paying for it. She also has a history of a recent concussion. Patient stated she saw a different prescriber than Dr Hunt from the same office she goes to (for a same day appointment) yesterday as she called for an appointment as she reports having another episode in which she described losing consciousness and could feel her body jerking. Patient stated she has been seen in the emergency room previously x3 for the above symptoms. Jeana reports she has an appointment with a neurologist coming up to r/o seizures and is also going to a concussion clinic. PHP prescriber Bianca Richardson, [employer] is aware.
--- NOTE | 2022-07-02 08:46 | HO.PHP ---
The clients case was reviewed and opened in treatment team
--- NOTE | 2022-07-02 14:25 | PC.NURSE ---
Jeana spoke to Ashely and stated she thinks she wants to go inpatient again to help stabilize her mood. Patient was recently inpatient however left early d/t issues with another patient on the unit. She reports sleeping 2-4 hours a night. Depakote recently increased by her outpatient provider is not working per patient. Patient has a dx of Bipolar disorder and she is currently depressed. She reports passive SI, denied plan or intent to kill herself. She has a history of cutting and has had thoughts to cut herself. Patient tearful at times. She wants to go to crisis for an evaluation. She is calm and cooperative and help seeking. I spoke to Debi from the care team and updated her regarding the patient and that staff Ashely will be walking Jeana to the ED for an evaluation. I also spoke to Nataly RN in the ER pod and did a nurse to nurse. There is a bed in the pod available for Jeana per July and Kevan is also aware of this. In addition, Jeana stated she is also working on child therapist for her children. Jeana also stated wants to be able to come back to the program after hospitalization.
--- NOTE | 2022-07-02 15:24 | HO.PHP ---
Jeana and I made a phone call to her Arnold from my office. She shared her concerns about stressing him out and her fears that he may disapprove of her seeking a higher level of care. We discussed the possibility of respite or inpatient. Arnold responded that he will support whatever she needs to do to take care of herself. After the call Jeana stated that she felt relieved and we discussed getting evaluated by crisis.
== END 2022-07-14 23:59 | disposition home or self-care (01) ==
LOC: HO.PHPA 10:15
PROVIDERS: Visit Provider Psychiatry & Neurology Psychiatry
DX: F31.63 Bipolar disorder, current episode mixed, severe, without psychotic features (principal)
CPT/HCPCS: 90791; 90853

== ENCOUNTER → 2022-07-26 10:01 | Outpatient (BNVA) | payer BC, MEDICAID, SELFPAY | PROVIDERS: Visit Provider Physician Assistant Surgical | DX: Z13.89 Encounter for screening for other disorder (principal) ==

== ENCOUNTER 2022-08-30 07:26 | Outpatient (REF) | payer BC, MEDICAID, SELFPAY ==
[2022-08-30 08:07] LABS: Lithium 0.63 mmol/L (0.60-1.20)
[2022-08-30 08:12] LABS: Valproate 38.2 mcg/mL (50.0-100.0)
[2022-08-30 08:15] LABS: Alanine Aminotransferase 18 U/L (0-31); Alkaline Phosphatase 78 U/L (39-117); Anion Gap 9 (12-20); Aspartate Amino Transferase 20 U/L (5-31); Bilirubin Total 0.6 mg/dL (0.0-1.0); Blood Urea Nitrogen 11 mg/dL (9-16); Calcium 9.3 mg/dL (8.4-10.2); Carbon Dioxide 30 mmol/L (22-29); Chloride 106 mmol/L (96-108); Estimated Glomerular Filt Rate > 60; Glucose Fasting 84 mg/dL (60-99); Potassium 4.1 mmol/L (3.3-5.1); Sodium 141 mmol/L (135-145); Total Protein 6.4 g/dL (6.5-8.0)
[2022-08-30 08:34] LABS: Free T4 (Free Thyroxine) 0.74 ng/dL (0.71-1.85); Thyroid Stimulating Hormone 3.82 uIU/mL (0.32-4.0)
== END 2022-08-30 07:27 | disposition home or self-care (01) ==
LOC: HO.LAB 07:26
PROVIDERS: Visit Provider Nurse Practitioner Psychiatric/Mental Health
DX: F31.63 Bipolar disorder, current episode mixed, severe, without psychotic features (principal)
CPT/HCPCS: 36415; 80053; 80164; 80178; 84439; 84443

== ENCOUNTER 2022-09-07 07:19 | Outpatient (REF) | payer BC, MEDICAID, SELFPAY ==
[2022-09-07 08:44] LABS: Lithium 1.18 mmol/L (0.60-1.20)
[2022-09-07 08:48] LABS: Valproate 54.5 mcg/mL (50.0-100.0)
--- NOTE | 2022-09-07 13:20 | P.PNPSP_ITS ---
Subjective Subjective Date of Service: 09/07/22 Reason For Visit: Bipolar disorder Medical Problems Affecting Mental Status: No Interim History: Continues with mood dysregulation. Continues with flight of ideas, racing thoughts at times. Disrupted sleep. Passive SI, reports she always has a plan, no intent. States she feels safe. Lab work completed this morning, had taken a.m. dose of lithium prior to lab draw. Medication Compliance: Yes Side effects from medications: No Review of Systems Acute medical concerns: No Medical Review of Systems: unchanged Review of Systems Review of Systems Yes all other systems are reviewed and are negative Constitutional: Reports no additional constitutional complaints Mental Status Exam Mental Status Exam Narrative: NAD Less labile. Patient Appearance: Appropriate Patient Orientation: Person, Place, Time and Situation Level of Consciousness: Appropriate Patient Behavior: Appropriate, Cooperative and Good Eye Contact Mood Description: Labile Affect Description: Appropriate and Labile (Some mood lability present, however appears improving.) Patient Cognition Impaired: No Ability to Follow Directions: Excellent Speech Pattern: Clear and Excessive Memory Description: Intact Hallucinations: None Delusions: Not Present Thought Process: Intact Thought Content: positive for Intact and positive for Suicidal Ideation (passive, with plan, no intent) Depressive Symptoms: Increased Anxiety, Difficulty Sleeping, Thoughts of /Suicide, Low Self Esteem and Difficulty Concentrating Judgement: Fair Diagnostics Labs Labs: Laboratory Results - last 48 hr 09/07/22 09/07/22 07:26 07:26 Valproic Acid 54.5 [place] 1.18 Assessment & Plan Assessment & Plan (1) Bipolar disorder: Status: Acute Code(s): F31.9 - Bipolar disorder, unspecified Assessment and Plan: Patient reports fluctuating mood. However, upon interview, thoughts appear to be organized, normal rate and volume of speech. No flight of ideas noted, no tangental speech. Appears able to focus, address this conventional mortgage underwriter appropriately during encounter, with thoughtful responses. Has SI with a plan, no intent. Reports that this is always baseline, and that she feels safe. No AH, no VH. Reports that she is finding program helpful. Had lab work completed this morning. Reports she was unaware that it was a trough reading for lithium, took her 300 mg dose this morning. States that she feels she has continued mood lability, anxiety. We reviewed her medications in detail. She is finding the added Depakote 250 mg at night somewhat helpful. Discussed remaining with this dose at this time. Depakote level within therapeutic range. Discussed possible options going forward, including increasing daytime doses of gabapentin, or possibly increasing Depakote dose further if needed for mood stabilization. Her last days scheduled for later this week. Discussed remaining on current Depakote dose at this time, with plan to address any medication changes when she is outpatient. She was in agreement with this plan. Plan 1. Continue with current [facility] plan of care. 2. Continue with medications as currently prescribed. 3. Follow-up as per protocol. Patient educated on: diagnosis, medication risk/benefits and therapeutic strategies Informed Consent: understands Reason for contiued partial hosp. stay Substantial Risk for: harm to self, inability to function, rapid decompensation and med/psych decompensation Certification I certify that partial hospital treatment is medically necessary due to the symptoms and problems resulting from the patient's mental illness and the failure to treat the patient at the partial hospital level of care would likely result in the patient requiring inpatient psychiatric care which could not be prevented at a less intensive level of care. Total time managing care of this patient today ___20_ minutes. Discharge Plan Discharge Primary Care Provider: Marjorie Bower Patient Disposition: Home, Self-Care Referrals: Marjroie Bower MD [Primary Care Provider] - 1 Week Discharge Medications: No Action gabapentin 600 mg tablet 600 mg PO BID@0900,1700 Patient Comments: Pharmacy stated Gabapentin 600 mg in the am and 1200 mg at HS. Patient stated increased to 600 mg in the am 600 mg at 1700 and 1200 mg at HS. gabapentin 600 mg tablet 1,200 mg PO BEDTIME hydroxyzine HCl 25 mg tablet 12.5 - 25 mg PO QID PRN (Reason: Anxiety) lithium carbonate 300 mg Capsule 600 mg PO BEDTIME Patient Comments: Patient stated she takes 300 mg in the am and 600 mg at HS, increased to stabilize mood. albuterol sulfate 90 mcg/actuation HFA aerosol inhaler 2 puff inhalation Q4H PRN (Reason: Shortness Of Breath Or Wheezing) lithium carbonate 300 mg capsule 300 mg PO DAILY Patient Comments: Patient reports increased from 150 mg to 300 mg in the am. divalproex 500 mg tablet extended release 24 hr 1,000 mg PO QPM divalproex [Depakote ER] 250 mg tablet extended release 24 hr 250 mg PO DAILY Qty: 30 0RF Rx Instructions: Take 1 tab (250mg) in addition to depakote bedtime dose of 1000mg.
== END 2022-09-07 07:20 | disposition home or self-care (01) ==
LOC: HO.LAB 07:19
PROVIDERS: PCP Family Medicine; Visit Provider Nurse Practitioner Psychiatric/Mental Health
DX: F31.60 Bipolar disorder, current episode mixed, unspecified (principal); Z79.899 Other long term (current) drug therapy
CPT/HCPCS: 36415; 80164; 80178

== ENCOUNTER 2022-09-09 11:15 | Outpatient (RCR) | payer BC, MEDICAID, SELFPAY ==
[2022-08-27 11:48] VITALS: BP 110/70; PULSE 60; TEMP 37.1
[2022-08-27 11:52] VITALS: BMI 72.2
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
--- NOTE | 2022-08-27 14:45 | PC.ADMIT ---
Patient is a 37 year old female who self referred back to the program d/t mood instability. Patient has a dx of bipolar disorder and feels she is in a mixed state. Patient's speech is somewhat hypomanic and mood appears anxious and somewhat irritable at times. Patient reports feelings of depression and stated having, Passive thoughts, I always have a plan but it doesn't mean I'm going to do it . 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 Patient given a copy of her safety plan if needed and I reviewed this with her. Patient reports using ETOH to cope with how she is feeling and stated drinking a bottle of wine 2 times a month or less and reports having one drink 2 days ago. Patient also recalls an incident with a neighbor stating she, Went over neighbors, drank Tequila and Coke x7 vomited and passed out. Feeling frustrated over mood instability and wanting to feel better. She reports working with her prescriber who recently increased Gabapentin and Udell to help stabilize her mood.
--- NOTE | 2022-08-31 12:25 | HO.PHP ---
PHP staff provided Jeana with resources around who to contact to help support advocate for her daughters needs within the school setting. PHP staff provided her with information around the IEP process, provided her with an educational advocate to reach out to, and outside providers such as [employer] and [employer]. Jeana was receptive.
--- NOTE | 2022-09-01 11:46 | HO.PHPPROGNO ---
Subjective Subjective Date of Service: 09/01/22 Reason For Visit: bipolar disorder Medical Problems Affecting Mental Status: No Interim History: Labile mood. No sleep past 3 days. Reports remembering to take a.m. dose lithium past week. Increased impulsive behaviors, due to no sleep. Suicidal ideation with plan, reports this is chronic, has no intent to act. Medication Compliance: Yes Side effects from medications: No Attending Groups: Yes Review of Systems Acute medical concerns: No Medical Review of Systems: unchanged Review of Systems Review of Systems Yes all other systems are reviewed and are negative Constitutional: Reports no additional constitutional complaints Mental Status Exam Mental Status Exam Narrative: NAD Patient Appearance: Appropriate Patient Orientation: Person, Place, Time and Situation Level of Consciousness: Appropriate Patient Behavior: Appropriate, Cooperative and Good Eye Contact Mood Description: Labile Affect Description: Labile (hypomanic) and Expansive Patient Cognition Impaired: No Ability to Follow Directions: Good Speech Pattern: Clear, Rapid and Excessive Memory Description: Intact Hallucinations: None Delusions: Not Present Thought Process: Intact Thought Content: positive for Flight of Ideas, positive for Circumstantial and positive for Suicidal Ideation (passive, with plan, no intent) Depressive Symptoms: Increased Anxiety, Insomnia (no sleep past 3 days), Increased Irritability, Changes in Appetite (fuctuating), Hopelessness, Thoughts of /Suicide, Low Self Esteem and Difficulty Concentrating Judgement: Fair Diagnostics Vital Signs (24Hr): BMI result Body Mass Index 72.2 Assessment & Plan Assessment & Plan (1) Bipolar disorder: Status: Acute Code(s): F31.9 - Bipolar disorder, unspecified Assessment and Plan: Continues with mood lability, no sleep. Chronic SI, no intent. States that she has crisis phone numbers, and resources if at any time she feels unsafe. Reports she is currently taking medications as prescribed, including remembering over the past week to take her daily morning lithium dose. Reviewed labs with her, including lithium levels, Depakote level. Discussed adding to 150 mg Depakote to bedtime dose of a 1000 mg, with recheck levels next week on Tuesday. Continue with other medications as currently prescribed. She is in agreement with this plan. Plan 1. Continue with current [facility] plan of care. 2. Increase bedtime dose of divalproex extended release to 1250 mg. 3. Recheck lithium, valproic acid levels next week on Tuesday. 4. Follow-up as per protocol. Patient educated on: diagnosis, medication risk/benefits and therapeutic strategies Informed Consent: understands Reason for contiued partial hosp. stay Substantial Risk for: harm to self, inability to function, rapid decompensation and med/psych decompensation Certification I certify that partial hospital treatment is medically necessary due to the symptoms and problems resulting from the patient's mental illness and the failure to treat the patient at the partial hospital level of care would likely result in the patient requiring inpatient psychiatric care which could not be prevented at a less intensive level of care. Total time managing care of this patient today __25__ minutes. Discharge Plan Discharge Attending provider: Yang Stoddard Medications: New divalproex 250 mg tablet extended release 24 hr 250 mg PO DAILY Qty: 7 0RF Rx Instructions: Take at bedtime, in addition to the 1000mg Ext release 24 hour divalproex dose, for total daily dose 1250 mg. No Action gabapentin 600 mg tablet 600 mg PO BID@0900,1700 Patient Comments: Pharmacy stated Gabapentin 600 mg in the am and 1200 mg at HS. Patient stated increased to 600 mg in the am 600 mg at 1700 and 1200 mg at HS. gabapentin 600 mg tablet 1,200 mg PO BEDTIME hydroxyzine HCl 25 mg tablet 12.5 - 25 mg PO QID PRN (Reason: Anxiety) lithium carbonate 300 mg Capsule 600 mg PO BEDTIME Patient Comments: Patient stated she takes 300 mg in the am and 600 mg at HS, increased to stabilize mood. albuterol sulfate 90 mcg/actuation HFA aerosol inhaler 2 puff inhalation Q4H PRN (Reason: Shortness Of Breath Or Wheezing) lithium carbonate 300 mg capsule 300 mg PO DAILY Patient Comments: Patient reports increased from 150 mg to 300 mg in the am. divalproex 500 mg tablet extended release 24 hr 1,000 mg PO QPM diazepam 5 mg tablet 5 - 10 mg PO QPM Stand Alone Forms: Patient Portal Discharge page
--- NOTE | 2022-09-02 15:13 | HO.PHP ---
Clients case was reviewed and opened today in treatment team.
--- NOTE | 2022-09-03 12:01 | HO.PHP ---
PHP staff met with Jeana to review her treatment plan. While reviewing her treatment plan PHP staff assessed safety due to comments that were made. Jeana had disclosed that she has been self-harming by cutting. PHP staff explored if she is cutting deep. Jeana mentioned she is not and that they are superficial cuts. PHP staff asked Jeana what cutting does for her. Jeana mentioned it allows her to feel pain. Jeana said she tried alternative coping skills and the only one that worked was during winter time, which was rolling in cold snow. PHP staff suggested she takes a cold shower instead. Jeana mentioned that she already takes cold showers so that wouldn't be affective. PHP staff assessed for SI, plan or intent. Jeana said although she has thoughts of SI she has no plan or intent to act on it because she is too scared and would not be able to do that to herself. Jeana expressed that she will be safe and she won't engage in self-harming over the weekend.
--- NOTE | 2022-09-06 11:24 | HO.PHP ---
[facility] staff contacted Jeana's doctors office to get clarification on her therapy appointments and to make sure she would be seen consistently until her OP therapist returns from leave. It was confirmed that Jeana would be seeing Tasia and Mariama interchangeably until her OP therapist returns. Jeana has an appointment on the and of this week. [facility] staff informed the individual she was speaking with that she would provide Jeana with that information. The individual was receptive.
--- NOTE | 2022-09-06 11:28 | HO.PHP ---
[facility] staff informed Jeana that she spoke to her Doctor's office and they will be covering for OP therapy and psychiatry every week until her original OP therapist returns from leave. [facility] staff did state that she has two appointments scheduled for this week and suggested calling to reschedule since she will be in program on those days. Jeana was receptive.
--- NOTE | 2022-09-09 11:59 | HO.PHPPROGNO ---
Subjective Subjective Date of Service: 09/09/22 Reason For Visit: bipolar disorder Medical Problems Affecting Mental Status: No Interim History: Mood more stable, I am less manic than when I started . Passive SI, no intent/plan. States I'm always like this . Reports some muscle twitching, not sure if related to seizure disorder or meds. Feels stable to discharge from [facility] today. Has outpatient provider appts scheduled with psychiatrist and neurologist. Medication Compliance: Yes Side effects from medications: No Attending Groups: Yes Review of Systems Acute medical concerns: No Medical Review of Systems: changed Review of Systems Review of Systems reports some muscle twitching, intermittent Mental Status Exam Mental Status Exam Narrative: NAD Patient Appearance: Appropriate Patient Orientation: Person, Place, Time and Situation Level of Consciousness: Appropriate Patient Behavior: Appropriate, Cooperative and Good Eye Contact Mood Description: Appropriate Affect Description: Appropriate Patient Cognition Impaired: No Ability to Follow Directions: Good Speech Pattern: Clear and Appropriate Memory Description: Intact Hallucinations: None Delusions: Not Present Thought Process: Intact and Linear Thought Content: positive for Intact, positive for Linear and positive for Suicidal Ideation (passive, no plan/intent) Depressive Symptoms: Increased Anxiety, Thoughts of /Suicide, Low Self Esteem and Difficulty Concentrating Judgement: Good Diagnostics Vital Signs (24Hr): BMI result Body Mass Index 72.2 Assessment & Plan Assessment & Plan (1) Bipolar disorder: Status: Acute Code(s): F31.9 - Bipolar disorder, unspecified Assessment and Plan: Mood more stable, I am less manic than when I started . Appears much more stable. Finding increased Depakote dose helpful. Satisfied with current medications as prescribed. Passive SI, no intent/plan. States I'm always like this . Reports some muscle twitching, not sure if related to seizure disorder or meds. Reports she will discuss this with both her neurologist and outpatient psychiatrist during upcoming visits. Feels stable to discharge from [facility] today. Has outpatient provider appts scheduled with psychiatrist and neurologist. Plan 1. Patient appears stable for discharge from [facility] at this time. 2. Patient to follow-up with outpatient providers going forward. Patient educated on: diagnosis, medication risk/benefits and therapeutic strategies Informed Consent: understands Reason for contiued partial hosp. stay Substantial Risk for: stable for discharge Certification I certify that partial hospital treatment is medically necessary due to the symptoms and problems resulting from the patient's mental illness and the failure to treat the patient at the partial hospital level of care would likely result in the patient requiring inpatient psychiatric care which could not be prevented at a less intensive level of care. Total time managing care of this patient today ___20_ minutes. Discharge Plan Discharge Attending provider: Yang Stoddard Additional Instructions: Jeana is being discharged from [facility] level of care to her outside providers. Jeana will be continuing with her OP therapist and Psychiatrist through [facility]. Jeana will be meeting with the OP provider, Tasia Hayes on September 21, 2022 at 11:45 AM. Jeana also has an appointment with her psychiatrist, Mariama, on September 23, 2022 at 9:40 AM. Medications: New divalproex [Depakote ER] 250 mg tablet extended release 24 hr 250 mg PO DAILY Qty: 30 0RF Rx Instructions: Take 1 tab (250mg) in addition to depakote bedtime dose of 1000mg. Discontinued diazepam 5 mg tablet 5 - 10 mg PO QPM No Action gabapentin 600 mg tablet 600 mg PO BID@0900,1700 Patient Comments: Pharmacy stated Gabapentin 600 mg in the am and 1200 mg at HS. Patient stated increased to 600 mg in the am 600 mg at 1700 and 1200 mg at HS. gabapentin 600 mg tablet 1,200 mg PO BEDTIME hydroxyzine HCl 25 mg tablet 12.5 - 25 mg PO QID PRN (Reason: Anxiety) lithium carbonate 300 mg Capsule 600 mg PO BEDTIME Patient Comments: Patient stated she takes 300 mg in the am and 600 mg at HS, increased to stabilize mood. albuterol sulfate 90 mcg/actuation HFA aerosol inhaler 2 puff inhalation Q4H PRN (Reason: Shortness Of Breath Or Wheezing) lithium carbonate 300 mg capsule 300 mg PO DAILY Patient Comments: Patient reports increased from 150 mg to 300 mg in the am. divalproex 500 mg tablet extended release 24 hr 1,000 mg PO QPM Stand Alone Forms: Patient Portal Discharge page Patient Education: Bipolar Disorder (DC)
== END 2022-09-09 23:59 | disposition home or self-care (01) ==
LOC: HO.PHPA 11:15
PROVIDERS: Visit Provider Psychiatry & Neurology Psychiatry
DX: F31.60 Bipolar disorder, current episode mixed, unspecified (principal); Z79.899 Other long term (current) drug therapy
CPT/HCPCS: 90791; 90853

== ENCOUNTER → 2022-09-20 09:32 | Outpatient (BNVA) | payer BC, MEDICAID, SELFPAY | PROVIDERS: PCP Family Medicine; Visit Provider Physician Assistant Surgical ==

== ENCOUNTER 2022-09-20 10:43 | Outpatient (REF) | payer BC, MEDICAID, SELFPAY ==
[2022-09-20 12:36] LABS: C Reactive Protein < 0.04 mg/dL (< or = 0.50)
[2022-09-20 12:45] LABS: Folate 16.2 ng/mL (> or = 4.0); Vitamin B12 536 pg/mL (200-900)
[2022-09-21 18:28] LABS: Calcium (PTHI) 9.6 mg/dL (8.6-10.2); PTHI 27 pg/mL (16-77)
[2022-09-23 05:19] LABS: Zinc 74 mcg/dL (60-130)
[2022-09-24 03:13] LABS: Vitamin A 62 mcg/dL (38-98)
[2022-09-24 13:33] LABS: Vitamin B1 27 nmol/L (8-30)
== END 2022-09-20 10:44 | disposition home or self-care (01) ==
LOC: HO.LAB 10:43
PROVIDERS: PCP Family Medicine; Visit Provider Physician Assistant Surgical
DX: Z98.84 Bariatric surgery status (principal)
CPT/HCPCS: 36415; 82306; 82607; 82746; 83970; 84425; 84590; 84630; 86140

== ENCOUNTER 2022-11-23 12:39 | Outpatient (AMB) | payer BC, MEDICAID, SELFPAY ==
--- NOTE | 2022-11-23 12:51 | MHC.OFFVISWM ---
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: No Allergies latex [LATEX] Allergy (Unknown, Verified 11/23/22 12:57) Swelling sulfamethoxazole [From BACTRIM] Allergy (Unknown, Verified 11/23/22 12:57) Rash trazodone [TRAZODONE] Allergy (Unknown, Verified 11/23/22 12:57) Insomnia trimethoprim [From BACTRIM] Allergy (Unknown, Verified 11/23/22 12:57) Rash lumateperone Adverse Reaction (Intermediate, Verified 11/23/22 12:57) skin irritation cariprazine [From Vraylar] Adverse Reaction (Verified 11/23/22 12:57) Sensation of burning skin CHOCOLATE Allergy (Unknown, Uncoded 07/02/22 14:33) Migraine From FLONASE Allergy (Unknown, Uncoded 07/02/22 14:33) Migraine Medication List - Last Reconciled 11/23/22 by GABRIEL Bullard albuterol sulfate 90 mcg/actuation 2 puffs inhalation Q4H PRN aripiprazole 5 mg PO DAILY divalproex ER 1,000 mg PO QPM gabapentin 600 mg PO BID@0900,1700 gabapentin 1,800 mg PO BEDTIME hydroxyzine HCl 12.5 - 25 mg PO QID PRN lithium carbonate 300 mg PO DAILY lithium carbonate 600 mg PO BEDTIME ondansetron 4 mg PO Q8H PRN HPI HPI Comments History of Present Illness Details 37 yo female returns to the office for 1 year 2 month post op f/u to [facility] on 09/24/21. Op weight was 256.3 pounds. Weight today is 209.8 with a BMI of 33.9. Lowest weight since surgery 184.4 with a BMI of 29.7 (08/12/22). She states she had gotten sick with a lung infection and was placed on steroids for 6 weeks. She has not been able to reduce the weight. 2 psych hospitalizations in the past year. Meal plan: 2 eggs, grilled veg tuna sandwich protein chips or quest bar or one bar pork/chicken/steak (4 oz), rice or veg drinking 20 oz water exercise: walking 1 mi daily or low impact cardio PFSH Medical History Alcohol use disorder, moderate, dependence Asthma Bipolar depression Chronic post-traumatic stress disorder (PTSD) Depression GERD (gastroesophageal reflux disease) Hemangioma Insomnia Migraines Mixed bipolar disorder Obesity Post concussion syndrome Restless leg syndrome Steatosis, liver Surgical History H/O gastric sleeve H/O laparoscopy History of myringotomy Hx of dilation and curettage Family History Mother Mental health disorder Arthritis Thyroid condition Father Arthritis Autism Hypertension Brother No problems noted. Sister No problems noted. Son No problems noted. Daughter Autism ADHD Social History Household Members: Spouse and Children Household Members Other:: AND AUTISTIC 6 YEAR OLD DAUGHTER Housing: House Are you a primary plant health care technician to a significant other at home: No Do you presently have visiting nurse or other home services: No Alcohol intake: current Alcohol intake frequency: holidays/special occasions only Patient Tobacco Use Status: Never used Tobacco Substance Use Type: Caffiene service: No Current occupational status: unemployed Sexual orientation: Straight/Heterosexual Physical Exam Const General: healthy appearing and no acute distress Resp Effort & Inspection: normal respiratory effort Auscultation: clear to auscultation bilaterally Cardio Rate: regular rate Rhythm: regular rhythm GI Auscultation: normal bowel sounds Extrem General: Yes normal to inspection Assessment & Plan Assessment & Plan (1) Obesity: Code(s): E66.9 - Obesity, unspecified Plan: Does not want to do shakes. Will continue current meal plan which is not too far off Encouraged to increase water to 60 oz daily Encouraged to make small changes to her exercise plan on a weekly basis: Increase distance walked Increase from low impact to medium impact aerobic videos and try to increase duration from 15 min by 3 minutes per week Will discuss possible slow taper down of psychotropic medications with her provider rtc 2 months Coding Level of Care Code Est Pt Level 3 (95635) Diagnoses Obesity E66.9
[2022-11-23 12:59] VITALS: BP 124/57; PULSE 87; TEMP 36.8; O2SAT 95; BMI 33.9
== END 2022-11-23 13:31 | disposition home or self-care (01) ==
PROVIDERS: PCP Family Medicine; Visit Provider Physician Assistant Surgical
DX: E66.9 Obesity, unspecified (principal); Z68.33 Body mass index [BMI] 33.0-33.9, adult; Z90.3 Acquired absence of stomach [part of]; Z98.84 Bariatric surgery status
CPT/HCPCS: 99213

== ENCOUNTER → 2022-11-23 12:39 | Outpatient (BNVA) | payer BC, MEDICAID, SELFPAY | PROVIDERS: PCP Family Medicine; Visit Provider Physician Assistant Surgical ==

== ENCOUNTER 2023-01-25 10:23 | Outpatient (AMB) | payer BC, MEDICAID, SELFPAY ==
--- NOTE | 2023-01-25 10:05 | MHC.OFFVISWM ---
Intake VS Expanded 01/25/23 10:08 Height 5 ft 6 in Weight 200 lb BMI 32.3 Intake Visit Reasons: VIDEO PO LSG 09/24/21 Allergies latex [LATEX] Allergy (Unknown, Verified 11/23/22 12:57) Swelling sulfamethoxazole [From BACTRIM] Allergy (Unknown, Verified 11/23/22 12:57) Rash trazodone [TRAZODONE] Allergy (Unknown, Verified 11/23/22 12:57) Insomnia trimethoprim [From BACTRIM] Allergy (Unknown, Verified 11/23/22 12:57) Rash lumateperone Adverse Reaction (Intermediate, Verified 11/23/22 12:57) skin irritation cariprazine [From Vraylar] Adverse Reaction (Verified 11/23/22 12:57) Sensation of burning skin CHOCOLATE Allergy (Unknown, Uncoded 07/02/22 14:33) Migraine From FLONASE Allergy (Unknown, Uncoded 07/02/22 14:33) Migraine Medication List - Last Reconciled 01/25/23 by GABRIEL Edwards albuterol sulfate 90 mcg/actuation 2 puffs inhalation Q4H PRN aripiprazole 5 mg PO DAILY divalproex ER 1,000 mg PO QPM gabapentin 600 mg PO BID@0900,1700 gabapentin 1,800 mg PO BEDTIME hydroxyzine HCl 12.5 - 25 mg PO QID PRN lithium carbonate 300 mg PO DAILY lithium carbonate 600 mg PO BEDTIME metformin 500 mg PO BID ondansetron 4 mg PO Q8H PRN HPI HPI Comments History of Present Illness Details This?is a?37?yo female who is s/p LSG 09/24/2021. Presents for 1 year 4 month post op visit. Weight at last visit on 11/23/2022 was 209.8 pounds with a BMI of 33.9, weight today is 200 pounds, representing a 9.8 pound weight loss with a BMI today of 32.3.? No complaints of emesis, abdominal pain or reflux, or constipation. Occasional nausea, likely related to psych. Uses Zofran for nausea. Pt reports illness after water main break, ended up in hospital. Reports starting metformin for PCOS. 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 Sister No problems noted. Son No problems noted. Daughter Autism ADHD Social History Household Members: Spouse and Children Household Members Other:: AND AUTISTIC 6 YEAR OLD DAUGHTER Housing: House Are you a primary healthcare or medical to a significant other at home: No Do you presently have visiting nurse or other home services: No Alcohol intake: current Alcohol intake frequency: holidays/special occasions only Patient Tobacco Use Status: Never used Tobacco Substance Use Type: Caffiene service: No Current occupational status: unemployed Sexual orientation: Straight/Heterosexual Assessment & Plan Assessment & Plan (1) S/P laparoscopic sleeve gastrectomy: Code(s): Z98.84 - Bariatric surgery status (2) Obesity: Code(s): E66.9 - Obesity, unspecified Plan Pt will continue same food based meal plan as she is limited by finances and options from food pantry. She will again try to increase exercise as comfort allows, trying some PT exercises for knee pain. RTC 3 months, pt to continue to send weight checkins (texted her my # as she had got a new phone) Patient is obese and is not considered stable at this time. I spent a total of 30 minutes reviewing/updating records, examining the patient and counseling the patient on weight management as detailed above. Telehealth Telehealth Location of provider rendering services: practice address Location of patient: address on file Patient Identification confirmed using: Name, : Yes Telehealth method: video Patient verbally consented to treatment: Yes Patient verbally consented to billing insurance company: Yes Patient informed of any privacy concerns related to visit: Yes Coding Level of Care Code Tele Est Pt Level 4 (75359) Diagnoses S/P laparoscopic sleeve gastrectomy Z98.84 Obesity E66.9
[2023-01-25 10:08] VITALS: BMI 32.3
== END 2023-01-25 10:32 | disposition home or self-care (01) ==
LOC: HO.HBS 10:23
PROVIDERS: PCP Family Medicine; Visit Provider Physician Assistant Surgical
DX: E66.9 Obesity, unspecified (principal); Z68.32 Body mass index [BMI] 32.0-32.9, adult; Z90.3 Acquired absence of stomach [part of]; Z98.84 Bariatric surgery status
CPT/HCPCS: 99214

== ENCOUNTER → 2023-01-25 10:23 | Outpatient (BNVA) | payer BC, MEDICAID, SELFPAY | PROVIDERS: PCP Family Medicine; Visit Provider Physician Assistant Surgical ==

== ENCOUNTER 2023-04-26 10:26 | Outpatient (AMB) | payer BC, MEDICAID, SELFPAY ==
--- NOTE | 2023-04-26 10:04 | A.OFFVIS_ITS ---
Intake VS Expanded 04/26/23 10:13 Height 5 ft 6 in Weight 205 lb BMI 33.1 Intake Visit Reasons: VIDEO PO LSG 09/24/21 Allergies latex [LATEX] Allergy (Unknown, Verified 11/23/22 12:57) Swelling sulfamethoxazole [From BACTRIM] Allergy (Unknown, Verified 11/23/22 12:57) Rash trazodone [TRAZODONE] Allergy (Unknown, Verified 11/23/22 12:57) Insomnia trimethoprim [From BACTRIM] Allergy (Unknown, Verified 11/23/22 12:57) Rash lumateperone Adverse Reaction (Intermediate, Verified 11/23/22 12:57) skin irritation cariprazine [From Vraylar] Adverse Reaction (Verified 11/23/22 12:57) Sensation of burning skin CHOCOLATE Allergy (Unknown, Uncoded 07/02/22 14:33) Migraine From FLONASE Allergy (Unknown, Uncoded 07/02/22 14:33) Migraine Medication List - Last Reconciled 04/26/23 by GABRIEL Edwards albuterol sulfate 90 mcg/actuation 2 puffs inhalation Q4H PRN aripiprazole 5 mg PO DAILY divalproex ER 1,000 mg PO QPM gabapentin 600 mg PO BID@0900,1700 gabapentin 1,800 mg PO BEDTIME hydroxyzine HCl 12.5 - 25 mg PO QID PRN lithium carbonate 300 mg PO DAILY lithium carbonate 600 mg PO BEDTIME metformin 500 mg PO BID ondansetron 4 mg PO Q8H PRN HPI HPI Comments History of Present Illness Details This?is a?37?yo female who is s/p LSG 09/24/2021. Presents for 18 month post op visit. Weight at last visit on 01/25/2023 was 200 pounds with a BMI of 32.3, weight today is 205 pounds, representing a 5 pound weight gain with a BMI today of 33.1.? No complaints of abdominal pain or reflux, or constipation. Thinks she tore a ligament in her knee, going to PT. Was limited in how much she could do because of pain, but improving. Continues to have some nausea, takes Zofran. Has some food aversions. Since October, having diarrhea almost every day. Thinks she started metformin around the same time after questioning. Present meal plan includes: 2 eggs, grilled veg tuna sandwich protein chips or quest bar or one bar pork/chicken/steak (4 oz), rice or veg drinking 20 oz water taking MVI thinks her overall protein intake is low, eating a good amount of rice as it is bland and doesn't turn her stomach exercise: walking 1 mi daily or low impact cardio like dance class (1x week)- resumed these activities after knee pain improved with PT PFSH Medical History Alcohol use disorder, moderate, dependence Asthma Bipolar depression Chronic post-traumatic stress disorder (PTSD) Depression GERD (gastroesophageal reflux disease) Hemangioma Insomnia Migraines Mixed bipolar disorder Obesity Post concussion syndrome Restless leg syndrome Steatosis, liver Surgical History H/O gastric sleeve H/O laparoscopy History of myringotomy Hx of dilation and curettage Family History Mother Mental health disorder Arthritis Thyroid condition Father Arthritis Autism Hypertension Brother No problems noted. Sister No problems noted. Son No problems noted. Daughter Autism ADHD Social History Household Members: Spouse and Children Household Members Other:: AND AUTISTIC 6 YEAR OLD DAUGHTER Housing: House Are you a primary care support representative to a significant other at home: No Do you presently have visiting nurse or other home services: No Alcohol intake: current Alcohol intake frequency: holidays/special occasions only Patient Tobacco Use Status: Never used Tobacco Substance Use Type: Caffiene service: No Current occupational status: unemployed Sexual orientation: Straight/Heterosexual Assessment & Plan Assessment & Plan (1) Obesity: Code(s): E66.9 - Obesity, unspecified (2) S/P laparoscopic sleeve gastrectomy: Code(s): Z98.84 - Bariatric surgery status Plan Pt needs to get closer to 80g protein per day. We discussed why she was struggling with weight loss (not enough protein, lack of exercise). She will try to increase her protein as her recently got a raise at work which should help with finances. Will order labs. RTC 3 months for accountability. Patient is obese and is not considered stable at this time. I spent a total of 30 minutes reviewing/updating records, examining the patient and counseling the patient on weight management as detailed above. Orders: Orders Insulin Today E66.9 - Obesity, unspecified, Z98.84 - Bariatric surgery status IRON PROFILE Today E66.9 - Obesity, unspecified, Z98.84 - Bariatric surgery status Comprehensive Met. Panel Today E66.9 - Obesity, unspecified, Z98.84 - Bariatric surgery status C Reactive Protein Today E66.9 - Obesity, unspecified, Z98.84 - Bariatric surgery status Ferritin Today E66.9 - Obesity, unspecified, Z98.84 - Bariatric surgery status Vitamin D 25-OH Total Today E66.9 - Obesity, unspecified, Z98.84 - Bariatric surgery status Hemoglobin A1c Today E66.9 - Obesity, unspecified, Z98.84 - Bariatric surgery status Complete Blood Count Auto Diff Today E66.9 - Obesity, unspecified, Z98.84 - Bariatric surgery status Lipid Panel Today E66.9 - Obesity, unspecified, Z98.84 - Bariatric surgery status Vitamin B12 and Folate Today E66.9 - Obesity, unspecified, Z98.84 - Bariatric surgery status Zinc Today E66.9 - Obesity, unspecified, Z98.84 - Bariatric surgery status Vitamin B1 Today E66.9 - Obesity, unspecified, Z98.84 - Bariatric surgery status Vitamin A Today E66.9 - Obesity, unspecified, Z98.84 - Bariatric surgery status TSH reflex Free T4 Today E66.9 - Obesity, unspecified, Z98.84 - Bariatric surgery status Telehealth Telehealth Location of provider rendering services: practice address Location of patient: address on file Patient Identification confirmed using: Name, : Yes Telehealth method: voice only Patient verbally consented to treatment: Yes Patient verbally consented to billing insurance company: Yes Patient informed of any privacy concerns related to visit: Yes Minutes spent on Phone/Video with Pt.: 18 Coding Level of Care Code Tele Est Pt Level 4 (37008) Diagnoses Obesity E66.9 S/P laparoscopic sleeve gastrectomy Z98.84
[2023-04-26 10:13] VITALS: BMI 33.1
== END 2023-04-26 10:39 | disposition home or self-care (01) ==
LOC: HO.HBS 10:26
PROVIDERS: PCP Family Medicine; Referring Provider Family Medicine; Visit Provider Physician Assistant Surgical
DX: E66.9 Obesity, unspecified (principal); Z68.33 Body mass index [BMI] 33.0-33.9, adult; Z90.3 Acquired absence of stomach [part of]; Z98.84 Bariatric surgery status
CPT/HCPCS: 99442

== ENCOUNTER → 2023-04-26 10:26 | Outpatient (BNVA) | payer BC, MEDICAID, SELFPAY | PROVIDERS: PCP Family Medicine; Visit Provider Physician Assistant Surgical ==

== ENCOUNTER 2023-05-05 07:49 | Outpatient (REF) | payer BC, MEDICAID, SELFPAY ==
[2023-05-05 08:08] LABS: MANUAL DIFF FLAG NO
[2023-05-05 08:43] LABS: Basophils Absolute Auto 0.1 X10*3/uL (0.0-0.2); Basophils Percent Auto 1.2 % (0-2); Eosinophils Absolute Auto 0.3 X10*3/uL (0.0-0.4); Eosinophils Percent Auto 5.1 % (0-4); Hematocrit 39.4 % (37.0-47.0); Hemoglobin 12.7 g/dl (12.0-16.0); Imm Gran Abs Auto 0.01 X10*3/uL (0.00-0.03); Imm Gran Pct Auto 0.2 % (0.0-0.4); Lymphocytes Percent Auto 41.4 % (20-40); Mean Corpuscular HGB Conc 32.2 g/dl (31.0-35.0); Mean Corpuscular Hemoglobin 29.1 pg (27.0-33.0); Mean Corpuscular Volume 90.2 fL (80.0-98.0); Mean Platelet Volume 11.3 fL (9.4-12.3); Monocytes Absolute Auto 0.3 X10*3/uL (0.1-1.2); Neutrophils Absolute Auto 2.2 x10*3/uL (2.0-8.3); Neutrophils Percent Auto 45.1 % (45-73); Platelet Count 181 X10*3/uL (160-400); Red Blood Count 4.37 X10*6/uL (4.20-5.50); Red Cell Distribution Width 12.7 % (11.0-16.0); White Blood Count 4.9 X10*3/uL (4.8-10.8)
[2023-05-05 08:52] LABS: Estimated Average Glucose 88 mg/dL; Hemoglobin A1c % 4.7 % (<6.0)
[2023-05-05 09:13] LABS: Alanine Aminotransferase 14 U/L (0-31); Albumin Level 4.1 g/dL (3.5-5.0); Alkaline Phosphatase 67 U/L (39-117); Anion Gap 11 (12-20); Aspartate Amino Transferase 18 U/L (5-31); Bilirubin Total 0.6 mg/dL (0.0-1.0); Blood Urea Nitrogen 11 mg/dL (9-16); C Reactive Protein < 0.10 mg/dL (< or = 0.50); Calcium 9.5 mg/dL (8.4-10.2); Carbon Dioxide 28 mmol/L (22-29); Chloride 107 mmol/L (96-108); Cholesterol 170 mg/dL (<200); Estimated Glomerular Filt Rate > 60; Glucose Random 82 mg/dL (60-115); HDL Cholesterol 60 mg/dL (>40); Iron 109 mcg/dL (30-160); LDL Cholesterol Calculated 94 mg/dL (<100); Percent Iron Saturation 34 % (15-50); Potassium 3.9 mmol/L (3.3-5.1); Sodium 142 mmol/L (135-145); Total Iron Binding Capacity 320 mcg/dL (228-428); Total Protein 6.7 g/dL (6.5-8.0); Triglycerides 82 mg/dL (<150); Unsaturated Iron Binding 211 ug/dL
[2023-05-05 09:30] LABS: Ferritin 24 ng/mL (10-122); Insulin 5 uU/mL (2-29); TSH reflex Free T4 2.75 uIU/mL (0.32-4.0); Vitamin D 25-OH Total 37.6 ng/mL (>30)
[2023-05-05 09:57] LABS: Folate 11.7 ng/mL (> or = 4.0); Vitamin B12 469 pg/mL (200-900)
[2023-05-08 16:43] LABS: Zinc 65 mcg/dL (60-130)
[2023-05-10 04:39] LABS: Vitamin A 64 mcg/dL (38-98)
[2023-05-10 14:32] LABS: Vitamin B1 12 nmol/L (8-30)
== END 2023-05-05 07:50 | disposition home or self-care (01) ==
LOC: HO.LAB 07:49
PROVIDERS: Visit Provider Physician Assistant Surgical
DX: E66.9 Obesity, unspecified (principal); Z98.84 Bariatric surgery status
CPT/HCPCS: 36415; 80053; 80061; 82306; 82607; 82728; 82746; 83036; 83525; 83540; 84425; 84443; 84590; 84630; 85025; 86140

== ENCOUNTER 2023-08-22 11:34 | Outpatient (AMB) | payer BC, MEDICAID, SELFPAY ==
--- NOTE | 2023-08-22 11:30 | A.OFFVIS_ITS ---
VS Expanded 08/22/23 11:35 Height 5 ft 6 in Weight 231 lb BMI 37.3 Intake Visit Reasons: (TV) PO LSG 09/24/21 Allergies latex [LATEX] Allergy (Unknown, Verified 11/23/22 12:57) Swelling sulfamethoxazole [From BACTRIM] Allergy (Unknown, Verified 11/23/22 12:57) Rash trazodone [TRAZODONE] Allergy (Unknown, Verified 11/23/22 12:57) Insomnia trimethoprim [From BACTRIM] Allergy (Unknown, Verified 11/23/22 12:57) Rash lumateperone Adverse Reaction (Intermediate, Verified 11/23/22 12:57) skin irritation cariprazine [From Vraylar] Adverse Reaction (Verified 11/23/22 12:57) Sensation of burning skin CHOCOLATE Allergy (Unknown, Uncoded 07/02/22 14:33) Migraine From FLONASE Allergy (Unknown, Uncoded 07/02/22 14:33) Migraine Medication List - Last Reconciled 08/22/23 by GABRIEL Edwards albuterol sulfate 90 mcg/actuation 2 puffs inhalation Q4H PRN aripiprazole 5 mg PO DAILY divalproex ER 1,000 mg PO QPM gabapentin 600 mg PO BID@0900,1700 gabapentin 1,800 mg PO BEDTIME hydroxyzine HCl 12.5 - 25 mg PO QID PRN lithium carbonate 300 mg PO DAILY lithium carbonate 600 mg PO BEDTIME metformin 500 mg PO BID ondansetron 4 mg PO Q8H PRN HPI Comments Details: This?is a?38?yo female who is s/p LSG 09/24/2021. Presents for 23 month post op visit. Weight at last visit on 04/26/2023 was 205 pounds with a BMI of 33.1, weight today is 231 pounds, representing a 26 pound weight gain with a BMI today of 37.3.? No complaints of nausea, emesis, abdominal pain or reflux, or constipation. Since last visit contracted a virus that caused limited movement/arthritis. Was struggling with mental health and was started on Seroquel. Dealing with a lot of hunger. Had knee MRI, may need surgery. Frustrated by all these hurdles and her lack of progress. Present meal plan includes: 2 eggs, grilled veg tuna sandwich protein chips or quest bar or one bar pork/chicken/steak (4 oz), rice or veg drinking 20 oz water taking MVI exercise: minimal due to recent worsening of pain PFSH Medical History Alcohol use disorder, moderate, dependence Asthma Bipolar depression Chronic post-traumatic stress disorder (PTSD) Depression GERD (gastroesophageal reflux disease) Hemangioma Insomnia Migraines Mixed bipolar disorder Obesity Post concussion syndrome Restless leg syndrome Steatosis, liver Surgical History H/O gastric sleeve H/O laparoscopy History of myringotomy Hx of dilation and curettage Family History Mother Mental health disorder Arthritis Thyroid condition Father Arthritis Autism Hypertension Brother No problems noted. Sister No problems noted. Son No problems noted. Daughter Autism ADHD Social History Household Members: Spouse and Children Household Members Other:: AND AUTISTIC 6 YEAR OLD DAUGHTER Housing: House Are you a primary career information specialist to a significant other at home: No Do you presently have visiting nurse or other home services: No Alcohol intake: current Alcohol intake frequency: holidays/special occasions only Patient Tobacco Use Status: Never used Tobacco Substance Use Type: Caffiene service: No Current occupational status: unemployed Sexual orientation: Straight/Heterosexual Telehealth Telehealth Telehealth Platform: Telephone Location of provider rendering services: practice address Location of patient: address on file Patient Identification confirmed using: Name, : Yes Telehealth method: voice only Patient verbally consented to treatment: Yes Patient verbally consented to billing insurance company: Yes Patient informed of any privacy concerns related to visit: Yes Minutes spent on Phone/Video with Pt.: 22 Assessment & Plan Assessment & Plan (1) Bipolar disorder: Code(s): F31.9 - Bipolar disorder, unspecified Category: Medical (2) S/P laparoscopic sleeve gastrectomy: Code(s): Z98.84 - Bariatric surgery status Category: Surgical (3) Obesity: Code(s): E66.9 - Obesity, unspecified Category: Medical Plan New meal plan: 7-9am Quest protein shake 10am-12pm yogurt 1-3pm small meal 2oz (4 forks) protein, 2oz (4 forks) veg 4-6pm ONE bar 7pm meal 3oz (6 forks) protein, 6 forks veg/salad RTC 3 months Patient is obese and is not considered stable at this time. I spent a total of 30 minutes reviewing/updating records, examining the patient and counseling the patient on weight management as detailed above.
[2023-08-22 11:35] VITALS: BMI 37.3
== END 2023-08-22 11:59 | disposition home or self-care (01) ==
LOC: HO.HBS 11:35
PROVIDERS: PCP Family Medicine; Visit Provider Physician Assistant Surgical
DX: E66.9 Obesity, unspecified (principal); Z68.37 Body mass index [BMI] 37.0-37.9, adult; Z90.3 Acquired absence of stomach [part of]; Z98.84 Bariatric surgery status
CPT/HCPCS: 99443

== ENCOUNTER → 2023-08-22 11:34 | Outpatient (BNVA) | payer BC, MEDICAID, SELFPAY | PROVIDERS: PCP Family Medicine; Visit Provider Physician Assistant Surgical ==